=== PATIENT | male | born 1955 | race Caucasian/White ===

== ENCOUNTER 2022-01-28 16:34 | Inpatient (IN) | payer OTHER ==
[~2022-01-28] VITALS: Ht 180.3 cm; Wt 72.6 kg
[~2022-01-28 16:34] MED LIST: AZIT250 PO; AZIT500 PO; BACPOLTO30 TP; CEPH500 PO; CLIN300 PO; DOCU100 PO; HYDACE5 PO; HYDR1TAB94 PO; OMEP20ER PO; OXYACE5T PO; PRED20 PO; PROM25 PO; RXCLIN PO; RXHYDACE PO; SILSUL1TC TOP; SULTRIDS PO
[2022-01-28 17:14] LABS: BASOPHILS ABSOLUTE AUTO 0.02 K/mm3 (0.00-0.23); BASOPHILS PERCENT AUTO 0 % (0-2); EOSINOPHILS ABSOLUTE AUTO 0.02 K/mm3 (0.00-0.68); EOSINOPHILS PERCENT AUTO 0 % (0-6); Hematocrit 34.4 % (37.0-53.0); Hemoglobin 11.6 g/dL (13.5-17.5); IMMATURE GRAN ABSOLUTE AUTO 0.04 K/mm3 (0.00-0.10); IMMATURE GRAN PERCENT AUTO 0 % (0-1); LYMPHOCYTES ABSOLUTE AUTO 1.36 K/mm3 (0.84-5.20); LYMPHOCYTES PERCENT AUTO 11 % (21-46); MONOCYTES ABSOLUTE AUTO 0.71 K/mm3 (0.16-1.47); MONOCYTES PERCENT AUTO 6 % (4-13); Mean Corpuscular HGB 32.1 pg (26.0-34.0); Mean Corpuscular HGB Conc 33.7 g/dL (31.5-36.5); Mean Corpuscular Volume 95 fL (80-100); Mean Platelet Volume 10.3 fL (9.1-12.4); NEUTROPHILS ABSOLUTE AUTO 10.38 K/mm3 (1.96-9.15); NEUTROPHILS PERCENT AUTO 83 % (41-73); Platelet Count 409 K/mm3 (150-400); RDW Coefficient Variation 12.8 % (11.7-14.2); RDW Standard Deviation 45.1 fL (35.1-46.3); Red Blood Cell Count 3.61 M/mm3 (4.30-5.90); White Blood Cell Count 12.53 K/mm3 (4.00-11.30)
[2022-01-28 17:29] LABS: Albumin, Blood 2.6 g/dL (3.4-5.0); Albumin/Globulin Ratio 0.7 (0.8-1.8); Bilirubin, Total 0.2 mg/dL (0.1-1.0); Bun/Creatinine Ratio 35.3 (12.0-20.0); Creatinine, Blood 0.99 mg/dL (0.60-1.20); Globulin, Blood 3.9 g/dL (2.2-4.0); Potassium, Blood 3.7 mmol/L (3.5-5.5); Total Protein, Blood 6.5 g/dL (6.4-8.2)
[2022-01-29 05:01] LABS: BASOPHILS ABSOLUTE AUTO 0.03 K/mm3 (0.00-0.23); BASOPHILS PERCENT AUTO 0 % (0-2); EOSINOPHILS ABSOLUTE AUTO 0.15 K/mm3 (0.00-0.68); EOSINOPHILS PERCENT AUTO 1 % (0-6); Hematocrit 33.5 % (37.0-53.0); Hemoglobin 11.1 g/dL (13.5-17.5); IMMATURE GRAN ABSOLUTE AUTO 0.03 K/mm3 (0.00-0.10); IMMATURE GRAN PERCENT AUTO 0 % (0-1); LYMPHOCYTES ABSOLUTE AUTO 1.44 K/mm3 (0.84-5.20); LYMPHOCYTES PERCENT AUTO 14 % (21-46); MONOCYTES PERCENT AUTO 6 % (4-13); Mean Corpuscular HGB 32.1 pg (26.0-34.0); Mean Corpuscular HGB Conc 33.1 g/dL (31.5-36.5); Mean Corpuscular Volume 97 fL (80-100); Mean Platelet Volume 10.2 fL (9.1-12.4); NEUTROPHILS ABSOLUTE AUTO 8.45 K/mm3 (1.96-9.15); NEUTROPHILS PERCENT AUTO 79 % (41-73); Platelet Count 372 K/mm3 (150-400); RDW Coefficient Variation 13.1 % (11.7-14.2); RDW Standard Deviation 46.4 fL (35.1-46.3); Red Blood Cell Count 3.46 M/mm3 (4.30-5.90)
[2022-01-29 05:18] LABS: Albumin, Blood 2.3 g/dL (3.4-5.0); Albumin/Globulin Ratio 0.7 (0.8-1.8); Bilirubin, Total 0.2 mg/dL (0.1-1.0); Bun/Creatinine Ratio 27.2 (12.0-20.0); Calcium, Blood 8.2 mg/dL (8.5-10.1); Creatinine, Blood 0.85 mg/dL (0.60-1.20); Globulin, Blood 3.4 g/dL (2.2-4.0); Potassium, Blood 3.7 mmol/L (3.5-5.5); Total Protein, Blood 5.7 g/dL (6.4-8.2)
--- NOTE | 2022-01-29 06:20 | NUR ---
PT ADMIT FROM ER THIS SHIFT, A/O, VARIOUS SCABS TO EXTREMITIES AND LEFT ANKLE NECROTIC ABCESS. PT IS IND IN ROOM, COVID POSITIVE ON 01/22/22. WOUND PICS IN HARD CHART.
--- NOTE | 2022-01-29 17:38 | NUR ---
SHIFT SUMMARY PT NAPPING ON AND OFF THROUGH DAY. SPOKE WITH DR. MAJOR DUE TO NOT HEARING FROM DR. SULLIVAN OFFICE ABOUT NPO STATUS AND IF PROCEDURE WOULD BE COMPLETED TODAY. RECEIVED LUNCH AND TOLERATED WELL. WOUND TO L MEDIAL ANKLE OPEN TO AIR DUE TO DRINESS OF SITE. DENIES PAIN OR DISCOMFORT. TOOK A SHOWER THIS AFTERNOON. DR. SULLIVAN IN TO SEE PT AND PLANS FOR PROCEDURE TOMORROW.
--- NOTE | 2022-01-30 04:17 | NUR ---
SHIFT SUMMARY 66 YR M ADMITTED ON 01/28/22 FOR NECROTIC ULCER OF L ANKLE. FULL CODE. COVID POSITIVE. PT HAS BEEN NPO SINCE MIDNIGHT FOR A SCHEDULED I&D OF LEFT ANKLE WOUND TODAY. HE C/O PAIN IN HIS ANKLE AND WAS MEDICATED PER EMAR. HE HAD A FRIEND VISIT FOR A COUPLE OF HOURS TODAY AND HIS NEPHEW STOPPED BY WELL BUT DID NOT ENTER THE ROOM DUE TO PT BEING POS FOR COVID. PT IS COOPERATIVE W/ CARE AND USES CALL LIGHT APPROPRIATELY.
[2022-01-30 05:40] LABS: Vancomycin, Trough 9.7 ug/mL (5.0-10.0)
[2022-01-30 09:34] LABS: SARS-Cov-2 (COVID-19) PCR, MMC NEGATIVE (NEGATIVE)
--- NOTE | 2022-01-30 15:19 | NUR ---
PT RECENTLY TO [facility] BY [facility]. PT A/O. History, Chart, Medications and Allergies reviewed before start of procedure.Lungs clear T/O to Auscultation. Patient confirms NPO status and agrees with scheduled surgery. Pre-Op teaching done. Pt verbalizes understanding.
--- NOTE | 2022-01-30 18:12 | NUR ---
SHIFT SUMMARY DAY SURGERY HERE TO PICK PT UP AT APPROX 1430 TODAY FOR PROCEDURE. RETURNED APPROX 1750 AND WAS ABLE TO HOP TO BED. STATED HE DIDN'T WANT TO PUT PRESSURE ON FOOT DUE TO CONCERN ABOUT INCREASED DISCOMFORT. WRAP IN PLACE TO LLE. BEYOND EDGE OF DRESSING REDNESS TO ANKLE AREA. STATED PAIN 7/10 UPON RETURN FROM PACU AND MEDICATED. HAPPY TO BE ABLE TO EAT AND DRINK NOW. VS STARTED PER POST OPERATIVE PROTOCOL.
--- NOTE | 2022-01-31 03:02 | NUR ---
SHIFT SUMMARY 66 YR M ADMITTED ON 01/28/22 FOR LEFT ANKLE ULCER. FULL CODE. PT C/O PAIN IN LEFT ANKLE AFTER I&D TODAY. HE STATED THAT THE WRAP WAS TOO TIGHT ON IT AND IT WAS CAUSING HIM GREAT PAIN. WRAP WAS REMOVED AND FRESH GAUZE WAS PLACED THE WRAPPED AGAIN W/ BERNARDO BANDAGE. PT STATED IT WASN'T TIGHT AND FELT MUCH BETTER. HE ALSO C/O NAUSEA AND WAS GIVEN ZOFRAN PER EMAR. THIS SEEMED TO HELP. PT WAS ABLE TO SLEEP FOR SEVERAL HOURS THIS SHIFT BUT WAS IN PAIN AND ASKING FOR RELIEF APPROX Q4H. FENTYNL SEEMED TO HELP ALOT W/ THE PAIN.
--- NOTE | 2022-01-31 10:33 | NUR ---
01/31/22 1033 Jaqueline Payne VERIFICATIONS: EDIT CHART.
--- NOTE | 2022-01-31 12:52 | NUR ---
PATIENT WAS NAUSEATED AFTER WOUND CARE WAS PERFORMED. HE BEGAN TO VOMIT. HE DID SAY THAT HE WOULD TAKE ZOFRAN. THIS WAS OBTAINED OUT OF PIXIS, BUT PATIENT CHANGED HIS MIND. ZOFRAN WAS RETURNED. HE REQUESTED PAIN MEDICATION INSTEAD. HE WAS GIVEN 50 MCG OF SUBLIMAZE AT 1040 AND IT WAS EFFECTIE BRINGING PAIN 7/10 DOWN TO 4/10 AND HE WAS ABLE TO SIT BACK UP IN HIS BED- NO FURTHER GRIMMACING. THE WOUND WHEN CHANGED WAS PACKED WITH GAUZE, EXUDRY PLACED, WRAPED IN CURLEX AND THEN AN BERNARDO. DRAINAGE IS SANGUINEUS/SEROSANGUINEUS WITHOUT ODOR. SOME YONATHAN BLOOD PRESENT NEAR THE EDGE OF THE INCISION.
--- NOTE | 2022-01-31 17:35 | NUR ---
PATIENT HAS HAD IV SUBLIMAZE X 2 THIS SHIFT (6 HOURS APART) 25MCG WAS GIVEN THE LAST TIME AND IT HAS BEEN EFFECTIVE BRINING 03/02 DOWN TO 12/01. PROVIDER WAS CALLED TO ASK FOR PO PAIN MANAGEMENT AND HE DID WRITE ORDERS THIS EVENING. PAIN IS IN THE LEFT ANKLE. PATIENT IS COOPERATIVE WITH CARE AND DOES EAT MEALS.
--- NOTE | 2022-02-01 04:36 | NUR ---
A & OX4. V/S WNL. REGULAR DIET. IV TO R) AC. INDEPEDANT IN ROOM. DRESSING TO L) ANKLE C/D/I. PRN FENTANYL GIVEN FOR L) ANKLE/FOOT PAIN TWICE PER EMAR. FC. VOIDED W/O DIFFICULTY. NO BM THIS SHIFT. WILL CONTINUE TO MONITOR.
--- NOTE | 2022-02-01 11:15 | NUR ---
PATIENT PULLED OUT HIS IV AND MENTIONED THAT IT WAS TO HELP US OUT SO HE COULD GO HOME. PROVIDER ON FLOOR AND NOTIFIED. STATED HE WOULD ORDER PO ABX SO WE WOULDN'T NEED TO RESTART ANOTHER IV. DURING ASSESSEMNT, ABD WAS FOUND TO BE FIRM AND PAINFUL. PROVIDER UPDATED AND ASSESSED HIMSELF, ALSO ORDERING AN ULTRASOUND OF THE ABD. WOUND HEALING- NO FOUL ODER, TISSUE BED APPEARS TO BE SAME YESTERDAY, WITH LESS DRAINAGE.
--- NOTE | 2022-02-01 17:23 | NUR ---
PATIENT HAD US TODAY. RESULTS ARE UNREMARKABLE. HE HAS HAD ONE DOSE OF PO PAIN MEDICATION, EARLY IN THE SHIFT AND HAS BEEN COMFORTABLE SINCE. PATIENT PULLED OUT HIS IV THIS AM. DR. OROZCO IS CONSULTING WITH PODIATRY TO SEE IF ORAL ABX WILL BE EFFECTIVE. WAITING TO HEAR THE RESULT OF THAT BEFORE A NEW IV IS PLACED.
--- NOTE | 2022-02-02 04:32 | NUR ---
A&OX4. V/S WNL. NO IV ACCESS. INDEPEDANT IN ROOM. REGULAR DIET. SCD TO R) LEG ON. VOIDS W/O DIFFICULTY. NO BM THIS SHIFT. DRESSING TO L) ANKLE REINFORCED WITH MEDIPORE TAPE & KURLEX. PRN PO JONAH GIVEN FOR L) ANKLE PAIN PER EMAR. WILL CONTINUE TO MONITOR.
--- NOTE | 2022-02-02 17:13 | NUR ---
PATIENT IS ALERT AND ORIENTED AND COOPERATIVE WITH CARE. PAIN MANAGED PER EMAR. WOUND CARE COMPLETED. PATIENT IS INDEPENDENT IN HIS ROOM. CALLS APPOPRIATELY. NO NEW CONCERNS TODAY. WILL CONTINUE TO MONITOR
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
--- NOTE | 2022-02-03 04:44 | NUR ---
A&0X4. V/S WNL. REGULAR DIET. PT HAD A SHOWER. DRESSING TO L)FOOT/ANKLE C/D/I. NO IV ACCESS. SUPERVISION ON AMBULATION. PRN PO JONAH GIVEN FOR L)FOOT PAIN/HEAD. VOIDS W/O DIFFICULTY. NO BM THIS SHIFT. WILL CONTINUE TO MONITOR.
--- NOTE | 2022-02-04 04:52 | NUR ---
CLINICAL PARTNER SUMMARY AWAKE AT INTERVALS, VOICED HUNGER AND RECEIVED SNACKS, VOICED NAUSEA AND AFER IV PLACED, IV ZOFRAN X 1. VOICED PAIN OF LEFT ANKLE AND HAS RECEIVED ANALGESICS ORDERED. SEE MAR FOR DEAILS. CALL LIGHT IN REACH. DRESSING CDI. NO REPORTED BM THIS SHIT, BOWEL MEDS GIVEN.
[2022-02-04] MEDS ORDERED: DOCUZEN 8.6-501 EACH PO (11:56)
[2022-02-04] MEDS ORDERED: LEVFLO500 PO (11:57)
[2022-02-04] MEDS ORDERED: OMEP20ER PO (11:59)
[2022-02-04] MEDS ORDERED: MIRALAX17 GM PO (12:03)
[2022-02-04] MEDS ORDERED: OXYC5 PO (12:03)
[2022-02-04] MEDS ORDERED: VISBIOME 112.51 EACH PO (12:04)
--- NOTE | 2022-02-04 16:13 | NUR ---
WOUND DRESSING CHANGE CLEANED AND CHANGED PTS LEFT ANKLE DRESSING. CLEANED WITH SKINTEGRIT WOUND EDGE SAWYER, APPLIED CALCIUM ALGINATE COVERED WITH FOAM PAD AND WRAPPED WITH KULEX AND BERNARDO WRAP. PT TOLERATED THE PROCEDURE WELL. PHOTO WAS TAKEN AND PLACED IN THE PTS CHART
--- NOTE | 2022-02-04 19:13 | NUR ---
PT DISCHARGED THE PT VERBALIZED UNDERSTANDING OF THE DC INSTRUCTIONS. THE PTS PRESCIPTIONS WERE FAXED TO NITESH DUENAS ON [facility] HE REQUESTED. THE PTS INFORMATION WAS SENT TO THE WOUND CARE CLINIC PRIOR TO DC. THE PT WOUND DRESSING WAS CHANGED PRIOT TO DC. THE PT WAS TRANSFERED VIA WHEELCHAIR ACCOMPANIED BY A FRIEND AND THE NEEDLE PROCESS FELT GOODS SUPERVISOR.
== END 2022-02-04 19:13 | disposition home or self-care (01) | DRG 854 ==
LOC: ER 16:34 → MEDS 20:10 → SURS 20:10 → MEDS 20:13
PROVIDERS: Podiatrist; Student in an Organized Health Care Education/Training Program; ADMIT Internal Medicine
PROC: 3E03329 Introduction of Other Anti-infective into Peripheral Vein, Percutaneous Approach (ICD-10-PCS; principal; 2022-01-28)
PROC: 0KBW0ZZ Excision of Left Foot Muscle, Open Approach (ICD-10-PCS; 2022-01-30)
PROC: 0J9R0ZZ Drainage of Left Foot Subcutaneous Tissue and Fascia, Open Approach (ICD-10-PCS; 2022-01-30)
DX: A40.0 Sepsis due to streptococcus, group A (principal); L03.116 Cellulitis of left lower limb; L97.322 Non-pressure chronic ulcer of left ankle with fat layer exposed; E87.2 Acidosis; L97.323 Non-pressure chronic ulcer of left ankle with necrosis of muscle; A40.1 Sepsis due to streptococcus, group B; A41.02 Sepsis due to Methicillin resistant Staphylococcus aureus; A41.81 Sepsis due to Enterococcus; R65.20 Severe sepsis without septic shock; K21.9 Gastro-esophageal reflux disease without esophagitis; F15.10 Other stimulant abuse, uncomplicated; F41.9 Anxiety disorder, unspecified; F43.10 Post-traumatic stress disorder, unspecified; Z20.822 Contact with and (suspected) exposure to COVID-19; D72.829 Elevated white blood cell count, unspecified; Z71.51 Drug abuse counseling and surveillance of drug abuser; Z98.890 Other specified postprocedural states; Z79.2 Long term (current) use of antibiotics; Z79.891 Long term (current) use of opiate analgesic; Z79.899 Other long term (current) drug therapy; Z88.0 Allergy status to penicillin; Z88.5 Allergy status to narcotic agent; Z88.8 Allergy status to other drugs, medicaments and biological substances
CPT/HCPCS: 36415; 73600; 76705; 80053; 80202; 83605; 85025; 85651; 87040; 87071; 87075; 87076; 87077; 87147; 87184; 87185; 87186; 87205; 93922; 96365; 96366; 96375; 99285-25; A9270; J0692; J0696; J2405; J2704; J2765; J3010; J3370; J7030; J7040; J7050; J7060; J7120; U0004

== ENCOUNTER 2022-02-12 01:22 | Day surgery (SDC) | payer OTHER ==
[~2022-02-12 01:22] MED LIST changes: +DOCUZEN 8.6-501 EACH PO; +LEVFLO500 PO; +MIRALAX17 GM PO; +OXYC5 PO; +VISBIOME 112.51 EACH PO
== END 2022-02-12 22:43 | disposition home or self-care (01) ==
LOC: WOUND 01:22
DX: L03.116 Cellulitis of left lower limb (principal); L97.325 Non-pressure chronic ulcer of left ankle with muscle involvement without evidence of necrosis; L97.822 Non-pressure chronic ulcer of other part of left lower leg with fat layer exposed; S91.002D Unspecified open wound, left ankle, subsequent encounter; X58.XXXD Exposure to other specified factors, subsequent encounter; I87.2 Venous insufficiency (chronic) (peripheral); I73.9 Peripheral vascular disease, unspecified; M25.572 Pain in left ankle and joints of left foot; K21.9 Gastro-esophageal reflux disease without esophagitis; Z88.0 Allergy status to penicillin; Z88.5 Allergy status to narcotic agent; Z88.6 Allergy status to analgesic agent; F17.210 Nicotine dependence, cigarettes, uncomplicated
CPT/HCPCS: A9270; G0463

== ENCOUNTER 2022-02-26 08:00 | Day surgery (SDC) | payer OTHER | END 2022-02-26 23:59 | disposition home or self-care (01) | LOC: WOUND 08:00 | DX: L03.116 Cellulitis of left lower limb (principal); L97.325 Non-pressure chronic ulcer of left ankle with muscle involvement without evidence of necrosis; L97.822 Non-pressure chronic ulcer of other part of left lower leg with fat layer exposed; I87.2 Venous insufficiency (chronic) (peripheral); M25.572 Pain in left ankle and joints of left foot; K21.9 Gastro-esophageal reflux disease without esophagitis | CPT/HCPCS: 99406; A9270 ==

== ENCOUNTER 2022-03-05 03:42 | Day surgery (SDC) | payer OTHER | END 2022-03-05 23:46 | LOC: WOUND 03:42 | DX: L97.325 Non-pressure chronic ulcer of left ankle with muscle involvement without evidence of necrosis (principal); L97.822 Non-pressure chronic ulcer of other part of left lower leg with fat layer exposed; L03.116 Cellulitis of left lower limb; S91.002D Unspecified open wound, left ankle, subsequent encounter; X58.XXXD Exposure to other specified factors, subsequent encounter; I87.2 Venous insufficiency (chronic) (peripheral); I73.9 Peripheral vascular disease, unspecified; M25.572 Pain in left ankle and joints of left foot; K21.9 Gastro-esophageal reflux disease without esophagitis; Z72.0 Tobacco use | CPT/HCPCS: 99406; A9270; G0463 ==

== ENCOUNTER 2022-03-12 02:29 | Day surgery (SDC) | payer OTHER | END 2022-03-14 23:35 | disposition home or self-care (01) | LOC: WOUND 02:29 | DX: S91.002D Unspecified open wound, left ankle, subsequent encounter (principal); X58.XXXD Exposure to other specified factors, subsequent encounter; L97.325 Non-pressure chronic ulcer of left ankle with muscle involvement without evidence of necrosis; L97.822 Non-pressure chronic ulcer of other part of left lower leg with fat layer exposed; L03.116 Cellulitis of left lower limb; I87.2 Venous insufficiency (chronic) (peripheral); L73.9 Follicular disorder, unspecified; M25.572 Pain in left ankle and joints of left foot; Z72.0 Tobacco use; K21.9 Gastro-esophageal reflux disease without esophagitis | CPT/HCPCS: 99406; A9270 ==

== ENCOUNTER 2022-03-19 00:55 | Day surgery (SDC) | payer OTHER | END 2022-03-19 23:32 | disposition home or self-care (01) | LOC: WOUND 00:55 | DX: L03.116 Cellulitis of left lower limb (principal); I87.2 Venous insufficiency (chronic) (peripheral); I73.9 Peripheral vascular disease, unspecified; K21.9 Gastro-esophageal reflux disease without esophagitis; B95.62 Methicillin resistant Staphylococcus aureus infection as the cause of diseases classified elsewhere; Z72.0 Tobacco use | CPT/HCPCS: 99406; A9270; G0463 ==

== ENCOUNTER 2022-06-01 11:52 | Emergency (ER) | payer OTHER ==
[~2022-06-01] VITALS: Ht 182.9 cm; Wt 72.6 kg
[2022-06-01 13:08] LABS: Source, Urine Clean Catch
[2022-06-01 13:10] LABS: BASOPHILS ABSOLUTE AUTO 0.04 K/mm3 (0.00-0.23); BASOPHILS PERCENT AUTO 0 % (0-2); EOSINOPHILS ABSOLUTE AUTO 0.07 K/mm3 (0.00-0.68); EOSINOPHILS PERCENT AUTO 1 % (0-6); Hematocrit 39.9 % (37.0-53.0); Hemoglobin 13.4 g/dL (13.5-17.5); IMMATURE GRAN ABSOLUTE AUTO 0.04 K/mm3 (0.00-0.10); IMMATURE GRAN PERCENT AUTO 0 % (0-1); LYMPHOCYTES ABSOLUTE AUTO 1.57 K/mm3 (0.84-5.20); LYMPHOCYTES PERCENT AUTO 13 % (21-46); MONOCYTES ABSOLUTE AUTO 0.46 K/mm3 (0.16-1.47); MONOCYTES PERCENT AUTO 4 % (4-13); Mean Corpuscular HGB 30.7 pg (26.0-34.0); Mean Corpuscular HGB Conc 33.6 g/dL (31.5-36.5); Mean Corpuscular Volume 92 fL (80-100); Mean Platelet Volume 10.7 fL (9.1-12.4); NEUTROPHILS ABSOLUTE AUTO 9.66 K/mm3 (1.96-9.15); NEUTROPHILS PERCENT AUTO 82 % (41-73); Platelet Count 360 K/mm3 (150-400); RDW Coefficient Variation 13.7 % (11.7-14.2); RDW Standard Deviation 46.7 fL (35.1-46.3); Red Blood Cell Count 4.36 M/mm3 (4.30-5.90); White Blood Cell Count 11.84 K/mm3 (4.00-11.30)
[2022-06-01 13:11] LABS: Appearance, Urine Clear (Clear); Bilirubin, Urine Neg (Neg); Blood, Urine Neg (Neg); Color, Urine Yellow (P-Yellow); Glucose Qualitative, Urine Neg (Neg); Ketones, Urine Neg (Neg); Leukocyte Esterase, Urine Neg (Neg); Nitrite, Urine Neg (Neg); Protein, Urine Neg (Neg); Specific Gravity, Urine 1.015 (1.003-1.022); Urobilinogen, Urine NORM (Normal)
[2022-06-01 13:36] LABS: Albumin, Blood 3.2 g/dL (3.4-5.0); Bilirubin, Total 0.4 mg/dL (0.1-1.0); Bun/Creatinine Ratio 29.9 (12.0-20.0); Calcium, Blood 9.5 mg/dL (8.5-10.1); Creatinine, Blood 0.9 mg/dL (0.60-1.20); Globulin, Blood 3.3 g/dL (2.2-4.0); Total Protein, Blood 6.5 g/dL (6.4-8.2)
[2022-06-01] MEDS ORDERED: LOPE2C PO (13:51)
[2022-06-01] MEDS ORDERED: ONDA4ODT MM (13:51)
== END 2022-06-01 14:05 | disposition home or self-care (01) ==
LOC: ER 11:52
PROVIDERS: Emergency Medicine
DX: K52.9 Noninfective gastroenteritis and colitis, unspecified (principal); K21.9 Gastro-esophageal reflux disease without esophagitis; Z88.0 Allergy status to penicillin; Z88.6 Allergy status to analgesic agent; Z88.5 Allergy status to narcotic agent; Z87.891 Personal history of nicotine dependence
CPT/HCPCS: 80053; 81003; 83690; 85025; 96374; 99284-25; J2405; J7030

== ENCOUNTER 2022-06-20 00:47 | Inpatient (IN) | payer OTHER ==
[~2022-06-20] VITALS: Ht 180.3 cm; Wt 79.3 kg
[~2022-06-20 00:47] MED LIST changes: +LOPE2C PO; +ONDA4ODT MM
[2022-06-20 01:46] LABS: BASOPHILS ABSOLUTE AUTO 0.04 K/mm3 (0.00-0.23); BASOPHILS PERCENT AUTO 0 % (0-2); EOSINOPHILS ABSOLUTE AUTO 0.09 K/mm3 (0.00-0.68); EOSINOPHILS PERCENT AUTO 1 % (0-6); Hematocrit 29.8 % (37.0-53.0); Hemoglobin 10.1 g/dL (13.5-17.5); IMMATURE GRAN ABSOLUTE AUTO 0.09 K/mm3 (0.00-0.10); IMMATURE GRAN PERCENT AUTO 1 % (0-1); LYMPHOCYTES ABSOLUTE AUTO 1.31 K/mm3 (0.84-5.20); LYMPHOCYTES PERCENT AUTO 8 % (21-46); MONOCYTES ABSOLUTE AUTO 0.76 K/mm3 (0.16-1.47); MONOCYTES PERCENT AUTO 5 % (4-13); Mean Corpuscular HGB 31.5 pg (26.0-34.0); Mean Corpuscular HGB Conc 33.9 g/dL (31.5-36.5); Mean Corpuscular Volume 93 fL (80-100); Mean Platelet Volume 10.2 fL (9.1-12.4); NEUTROPHILS ABSOLUTE AUTO 13.88 K/mm3 (1.96-9.15); NEUTROPHILS PERCENT AUTO 86 % (41-73); Platelet Count 447 K/mm3 (150-400); RDW Coefficient Variation 15.2 % (11.7-14.2); RDW Standard Deviation 52.3 fL (35.1-46.3); Red Blood Cell Count 3.21 M/mm3 (4.30-5.90); White Blood Cell Count 16.17 K/mm3 (4.00-11.30)
[2022-06-20 02:08] LABS: Albumin, Blood 1.9 g/dL (3.4-5.0); Albumin/Globulin Ratio 0.5 (0.8-1.8); Bilirubin, Total 0.1 mg/dL (0.1-1.0); Bun/Creatinine Ratio 31.8 (12.0-20.0); Calcium, Blood 8.3 mg/dL (8.5-10.1); Creatinine, Blood 0.76 mg/dL (0.60-1.20); Globulin, Blood 3.5 g/dL (2.2-4.0); Magnesium, Blood 1.8 mg/dL (1.6-2.4); Potassium, Blood 3.7 mmol/L (3.5-5.5); Thyroid Stimulating Hormone 1.55 uIU/mL (0.360-4.800); Total Protein, Blood 5.4 g/dL (6.4-8.2)
[2022-06-20 03:15] LABS: Influenza A, PCR NEGATIVE (NEGATIVE); Influenza B, PCR NEGATIVE (NEGATIVE); Resp Syncytial Virus, PCR NEGATIVE (NEGATIVE); SARS-Cov-2 (COVID-19) PCR, MMC NEGATIVE (NEGATIVE)
[2022-06-20 04:11] LABS: Source, Urine Clean Catch
[2022-06-20 04:15] LABS: Bilirubin, Urine Neg (Neg); Blood, Urine 1+ (Neg); Glucose Qualitative, Urine Neg (Neg); Ketones, Urine Neg (Neg); Leukocyte Esterase, Urine Neg (Neg); Nitrite, Urine Neg (Neg); Protein, Urine 1+ (Neg); Urobilinogen, Urine NORM (Normal)
[2022-06-20 04:20] LABS: Appearance, Urine Clear (Clear); Color, Urine Yellow (P-Yellow)
[2022-06-20 04:21] LABS: Bacteria Not Seen /hpf; Squamous Epithelial Cells Not Seen /hpf (Few); White Blood Cells, Urine Not Seen /hpf (0-5)
[2022-06-20 05:15] LABS: U Amphetamine Screen DETECTED; U Barbituate Screen Not Detected; U Benzodiazapine Screen Not Detected; U Buprenorphine Screen Not Detected; U Cannabinoids Screen DETECTED; U Cocaine Screen Not Detected; U Methadone Screen Not Detected; U Methamphetamine Screen DETECTED; U Opiates Screen Not Detected; U Oxycodone Screen Not Detected; U Phencyclidine Screen Not Detected; U Propoxyphene Screen Not Detected
--- NOTE | 2022-06-20 06:33 | NUR ---
ARRIVAL TO PCU 12 PT ARRIVED AT 0530 VIA ED GURNEY. PT ALERT AND FOLLOWING DIRECTIONS. ABLE TO TRANSFER SELF TO BED. PT INITIALLY AFIB WITH RVR 130-140'S. SELF CONVERTED TO SR 80'S AT 0547. ON RA. SPO2 GREATER THAN 92%. PT HAS MULTIPLE SCABS ON BLE, STATES THEY 'SHOWED UP' A WEEK AGO. REDNESS/HEAT NOTED ON BLE, MORE ON RLE THEN LLE. SCATTERED PUSTULES ON BUE. LEFT ANKLE HAS OPEN ULCER. PICTURES IN CHART. VOIDS IN URINAL. EDUCATED ON CALLING BEFORE GETTING OOB. CALL LIGHT IN REACH.
--- NOTE | 2022-06-20 18:42 | NUR ---
SHIFT SUMMARY PT IS ALERT AND ORIENTED X 4 BUT HAS BEEN SOMNOLENT DURING SHIFT, HE DID GET UP IN CHAIR FOR DINNER AND WAS STEADY ON HIS FEET. HR WAS SR UPON BEGINNING OF SHIFT AND THEN PT HR CONVERTED TO AFIB, SEE EMAR. AFIB WAS RESOLVED AND PT WAS BACK IN SR BUT WOULD GEO DOWN TO 43-50'S AND THEN RETURN TO HR IN 70'S. DR. FALCON MADE AWARE, SEE EMAR FOR HR MANAGEMENT. CONTINUED TO DENY FEELINGS OF PAIN, SOB, OR DIZZINESS. HE DENIED CHEST PAIN/PRESSURE. ULCER LOCATED ON LEFT INNER ANKLE IS COVERED W/ CALCIUM ALGINATE/GAUZRISHABH Smith RN WOUND NURSE CONSULTED PT TODAY, SEE CHART FOR PHOTOS. BP WAS SOFT DURING EPISODE OF AFIB, SEE EMAR. BP NOW STABLE. SPO2 >95% VIA ROOM AIR. IV'S ARE SALINE LOCKED. HE HAS VOIDED USING BEDSIDE URINAL. NO OTHER ACUTE CHANGES NOTED. PT NOW WATCHING TV. CALL LIGHT IN REACH.
--- NOTE | 2022-06-20 19:00 | NUR ---
assumed care of pt pt nina stable a&o x4 vang no c/o pain will take over care
--- NOTE | 2022-06-21 03:48 | NUR ---
UPDATE CALL TO PHYSICIAN TO UPDATE REGARDING POSITIVE BLOOD CULTURES, NO NEW ORDERS AT THIS TIME.
[2022-06-21 04:08] LABS: Vancomycin, Trough 8.4 ug/mL (5.0-10.0)
--- NOTE | 2022-06-21 04:57 | NUR ---
SHIFT SUMMARY PT A&Ox4, CALLS AND COMMUNICATES NEEDS APPROPRIATELY. VSS, BP STABLE, SpO2> 92% RA, DENIES SOB. SINUS WITH OCCATIONAL PVC's RESULTING IN SHORT RUNS OF AFIB, HR GETTING HIGH 150 DURING RUNS OF AFIB, PT ASYMPTOMATIC AND DENYING CP/PRESSURE THROUGHOUT THE SHIFT AND DURING RUNS OF AFIB. PT USES URINAL IND. AMBULATED WITH SBA TO BATHROOM, SHOWERED IND. SEE PREVIOUS NOTE. NO OTHER EVENTS THIS SHIFT, WILL REPORT TO DAY SHIFT RN.
[2022-06-21 07:11] LABS: HIV AB/P24 AG SCREEN Non Reactive (Non Reactive)
--- NOTE | 2022-06-21 09:33 | NUR ---
ASSUMPTION OF CARE: PATIENT RESTING AT TIME OF ASSUMPTION, HOWEVER, AFTER NEEDING TO AMBULATE TO THE RESTROOM, PATIENT HAD CONVERTED INTO AFIB WITH RVR WITH HR 120-150'S OCCASSIONALLY HITTING 160. CALL TO PROVIDER AND PROVIDER 1 X DOSE OF METORPROLOL 5MG AND NEW ORDER FOR Q6 PRN 2.5-5MG ORDER WELL. PATIENT HAD FELT DIZZY AND LIGHTHEADED WHEN HE WAS IN AFIB, BUT AFTER CONVERTED BACK TO SINUS RHYTHM PATIENT ASYMPTOMATIC OF THESE SYMPTOMS. DENIES CHEST PAIN/PRESSURE, OR SOB AT REST. PATIENT HAD BEEN ALERT AND ORIENTED, LUNG SOUNDS CLEAR. RR <20 SPO2 >96% ON RA. PATIENT EDUCATED ON BETA BLOCKERS, CURRENT ILLNESS AND MEDICATION REGIMENT. PATIENT AGREEABLE WITH PLAN OF ACTION WILL CONTINUE TO MONITOR VS&S PRN AND PER SCHEDULED UNIT PROTOCOL. 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
[2022-06-21 10:14] LABS: BASOPHILS ABSOLUTE AUTO 0.04 K/mm3 (0.00-0.23); BASOPHILS PERCENT AUTO 0 % (0-2); EOSINOPHILS ABSOLUTE AUTO 0.09 K/mm3 (0.00-0.68); EOSINOPHILS PERCENT AUTO 1 % (0-6); Hematocrit 30.5 % (37.0-53.0); Hemoglobin 9.9 g/dL (13.5-17.5); IMMATURE GRAN ABSOLUTE AUTO 0.09 K/mm3 (0.00-0.10); IMMATURE GRAN PERCENT AUTO 1 % (0-1); LYMPHOCYTES ABSOLUTE AUTO 1.19 K/mm3 (0.84-5.20); LYMPHOCYTES PERCENT AUTO 8 % (21-46); MONOCYTES ABSOLUTE AUTO 0.58 K/mm3 (0.16-1.47); MONOCYTES PERCENT AUTO 4 % (4-13); Mean Corpuscular HGB 30.5 pg (26.0-34.0); Mean Corpuscular HGB Conc 32.5 g/dL (31.5-36.5); Mean Corpuscular Volume 94 fL (80-100); Mean Platelet Volume 9.7 fL (9.1-12.4); NEUTROPHILS ABSOLUTE AUTO 13.37 K/mm3 (1.96-9.15); NEUTROPHILS PERCENT AUTO 87 % (41-73); Platelet Count 434 K/mm3 (150-400); RDW Coefficient Variation 15.2 % (11.7-14.2); RDW Standard Deviation 52.4 fL (35.1-46.3); Red Blood Cell Count 3.25 M/mm3 (4.30-5.90); White Blood Cell Count 15.36 K/mm3 (4.00-11.30)
[2022-06-21 10:41] LABS: Bun/Creatinine Ratio 25.1 (12.0-20.0); Calcium, Blood 8.3 mg/dL (8.5-10.1); Creatinine, Blood 0.76 mg/dL (0.60-1.20); Potassium, Blood 4.1 mmol/L (3.5-5.5)
--- NOTE | 2022-06-21 15:32 | NUR ---
END OF SHIFT: PLEASE SEE ASSUMPTION OF CARE FOR FULL REPORT. ONLY CHANGES ARE ORTHO CONSULT TO DR. EVANS ORTHO DID NOT RECIEVE UNTIL TODAY, PLAN FOR NPO AT 0000 AND PROCEDURE FOR RIGHT KNEE ARTHOPLASTY AT APPROXIMATELY 1000. PATIENT HAS NOT NEEDED ANY LOPRESSOR THUS THIS FAR SINCE THIS AM. PATIENT HAS BEEN STABLE ON BP AND SR. PATIENT HAS NO CHEST PAIN/PRESSURE OR SOB AT REST. PATIENT RECIEVED SHOWER. NO CONCERNS AT THIS TIME FOR THE PATIENT WILL CONTINUE TO MONITOR UNTIL SHIFT CHANGE.
--- NOTE | 2022-06-22 01:27 | NUR ---
UPDATE PT CONVERTING INTO AFIB A FEW TIME FOR LESS THAN A MINUTE BEFORE CONVERTING BACK TO SINUS ON HIS OWN, PT ASYMPTOMATIC. AT 0111, PT CONVERTED INTO AFIB AND SUSTAINING, HR 120-150's, PT REPORTS MINOR CP AND FEELING "JUST A LITTLE LIGHTHEADED". ADMINISTERED PRN IV LOPRESSOR 5mg FOR RATE CONTROL. BP PRIOR TO ADMINISTRATION WAS 122/90 (100). BP APPROXIMATELY 15 MINUTES AFTER ADMINISTRATION IS 114/91 (98), HR UNCHANGED, PT's SYMPTOMS UNCHANGED.
--- NOTE | 2022-06-22 01:49 | NUR ---
UPDATE PT CONVERTED BACK TO SINUS IN THE 's.
[2022-06-22 03:57] LABS: BASOPHILS ABSOLUTE AUTO 0.05 K/mm3 (0.00-0.23); BASOPHILS PERCENT AUTO 0 % (0-2); EOSINOPHILS ABSOLUTE AUTO 0.16 K/mm3 (0.00-0.68); EOSINOPHILS PERCENT AUTO 1 % (0-6); Hematocrit 29.6 % (37.0-53.0); Hemoglobin 9.7 g/dL (13.5-17.5); IMMATURE GRAN ABSOLUTE AUTO 0.11 K/mm3 (0.00-0.10); IMMATURE GRAN PERCENT AUTO 1 % (0-1); LYMPHOCYTES ABSOLUTE AUTO 1.58 K/mm3 (0.84-5.20); LYMPHOCYTES PERCENT AUTO 12 % (21-46); MONOCYTES ABSOLUTE AUTO 0.58 K/mm3 (0.16-1.47); MONOCYTES PERCENT AUTO 5 % (4-13); Mean Corpuscular HGB 30.5 pg (26.0-34.0); Mean Corpuscular HGB Conc 32.8 g/dL (31.5-36.5); Mean Corpuscular Volume 93 fL (80-100); Mean Platelet Volume 9.6 fL (9.1-12.4); NEUTROPHILS ABSOLUTE AUTO 10.25 K/mm3 (1.96-9.15); NEUTROPHILS PERCENT AUTO 80 % (41-73); Platelet Count 465 K/mm3 (150-400); RDW Coefficient Variation 15.1 % (11.7-14.2); RDW Standard Deviation 52.2 fL (35.1-46.3); Red Blood Cell Count 3.18 M/mm3 (4.30-5.90); White Blood Cell Count 12.73 K/mm3 (4.00-11.30)
[2022-06-22 04:18] LABS: Anion Gap 4 mmol/L (6-16); Blood Urea Nitrogen 20 mg/dL (8-24); Bun/Creatinine Ratio 25.9 (12.0-20.0); CO2, Blood 30 mmol/L (21-32); Chloride, Blood 107 mmol/L (98-108); Creatinine, Blood 0.77 mg/dL (0.60-1.20); Glomerular Filtration Rate 100 (60-); Glucose, Blood 127 mg/dL (70-99); Magnesium, Blood 2.2 mg/dL (1.6-2.4); Potassium, Blood 4.1 mmol/L (3.5-5.5); Sodium, Blood 141 mmol/L (136-145); Vancomycin, Trough 12.8 ug/mL (5.0-10.0)
--- NOTE | 2022-06-22 05:20 | NUR ---
SHIFT SUMMARY PT A&Ox4, CALLS AND COMMUNICATES NEEDS APPROPRIATELY. PT IS IND IN ROOM. VSS, BP STABLE, SpO2> 92% ON RA. DENIES SOB, CP/PRESSURE. SINUS 80's, SEE PREVIOUS NOTES. PT NPO AT 0000. NO OTHER EVENTS THIS SHIFT, WILL REPORT TO DAY SHIFT RN.
--- NOTE | 2022-06-22 12:44 | NUR ---
06/22/22 1244 Vicki Burroughs PT RECIEVED ANTIBIOTICS SCHEDULED BY DR CUMMINS.
--- NOTE | 2022-06-22 16:20 | NUR ---
END OF SHIFT: NEURO: PLEASANT, A/O X 4. AFEBRILE, PAIN POORLY CONTROLLED AT THIS TIME. CARDIAC: DENIES CHEST PAIN/PRESSURE OR SOB. CURRENLTY 50-60'S WHILE SLEEPING TYPICALLY SINUS 70-80'S WHILE AWAKE, DID NOT CONVERT INTO AFIV FOR THIS RN AT THIS TIME OF NOTE, WILL CONTINUE TO MONITOR. BP NORMOTENSIVE. PULM: WNL SKIN/WOUNDS: PATIENT NOW HAS 7 COVERINGS AFTER HAVE I/D'S BY DR PALMER, ICE TO AFFECTED AREA'S Q 20 ON, 30 OFF. PATIENT HAS BEEN SELF ROTATING. LEGS ELEVATED. AND DRESSING TO BE CHANGED BY WOUND NURSE TOMORROW PER DR. PALMER. PATIENT STILL RECIEVING VANCO AND NEW ORDER FOR 1 BAG OF FLUIDS. PATIENT APPETITE IS WELL, NO CONCERNS AT THIS TIME. PATIENT HAS NO DIRECT CONCERNS EXCEPT FOR IMPROVED PAIN MANAGEMENT, WILL INFORM HOSPITALIST AND CONTINUE TO MONITOR PATIENT UNTIL SHIFT CHANGE.
[2022-06-23 04:03] LABS: BASOPHILS ABSOLUTE AUTO 0.03 K/mm3 (0.00-0.23); BASOPHILS PERCENT AUTO 0 % (0-2); EOSINOPHILS PERCENT AUTO 0 % (0-6); Hematocrit 31.5 % (37.0-53.0); Hemoglobin 10.6 g/dL (13.5-17.5); IMMATURE GRAN ABSOLUTE AUTO 0.15 K/mm3 (0.00-0.10); IMMATURE GRAN PERCENT AUTO 1 % (0-1); LYMPHOCYTES ABSOLUTE AUTO 1.01 K/mm3 (0.84-5.20); LYMPHOCYTES PERCENT AUTO 6 % (21-46); MONOCYTES PERCENT AUTO 2 % (4-13); Mean Corpuscular HGB 31.3 pg (26.0-34.0); Mean Corpuscular HGB Conc 33.7 g/dL (31.5-36.5); Mean Corpuscular Volume 93 fL (80-100); Mean Platelet Volume 9.6 fL (9.1-12.4); NEUTROPHILS ABSOLUTE AUTO 15.84 K/mm3 (1.96-9.15); NEUTROPHILS PERCENT AUTO 91 % (41-73); Platelet Count 508 K/mm3 (150-400); RDW Coefficient Variation 15.1 % (11.7-14.2); RDW Standard Deviation 51.8 fL (35.1-46.3); Red Blood Cell Count 3.39 M/mm3 (4.30-5.90); White Blood Cell Count 17.43 K/mm3 (4.00-11.30)
--- NOTE | 2022-06-23 04:35 | NUR ---
SHIFT SUMMARY PT A&Ox4, CALLS AND COMMUNICATES NEEDS APPROPRIATELY. PT IND IN ROOM. VSS, BP STABLE, SpO2> 92% RA. DENIES SOB. PT REMAINED IN SINUS 60-80's THROUGHOUT THIS SHIFT, NO EVENTS OF AFIB OR SINUS GEO. DENIES CP/PRESSURE. NO OTHER EVENTS THIS SHIFT, WILL REPORT TO DAY SHIFT RN.
[2022-06-23 16:49] LABS: Vancomycin, Trough 14.2 ug/mL (5.0-10.0)
--- NOTE | 2022-06-23 18:23 | NUR ---
PT REMAINS ALERT AND ORIENTED X 4, ABLE TO FOLLOW COMMANDS AND COMMUNICATE NEEDS. PT C/O PAIN TO WOUNDS, FENTANYL GIVEN PER ORDER WITH GOOD EFFECT. PT PREVIOUSLY IN AFIB WITH RVR FOR THE FIRST 6 HOURS OF THE SHIFT, METROPOLOL IV GIVEN X2. PT HAS SINCE CONVERTED TO SR WITH HR IN THE 60'S. BLOOD PRESSURE REMAINS STABLE. AFEBRILE. PT REMAINS ON RA WITH SPO2 ABOVE 90% NO RESP DISTRESS NOTED. GOOD APPETITIE NOTED. PT HAS BEEN USING THE TOILET INDEP. PT UP IN ROOM T/O SHIFT. WILL CONTINUE TO MONITOR PT UNTIL REPORT IS GIVEN TO ONCOMING SHIFT.
--- NOTE | 2022-06-24 04:45 | NUR ---
SHIFT SUMMARY A&Ox4, CALLS AND COMMUNICATES NEEDS APPROPRIATELY. VSS, BP STABLE, SpO2> 92% RA. DENIES SOB. PT WAS SINUS 70's AT START OF SHIFT, AT APPROXIMATELY 2230 PT CONVERTED TO AFIB 90-120's, ADMINISTERED IV LOPRESSOR PER EMAR, PT STILL IN AFIB. DENIES CP/PRESSURE/DIZZINESS. PT IND IN ROOM. PAIN MANAGED PER EMAR. NO OTHER EVENTS THIS SHIFT. WILL REPORT TO DAY SHIFT RN.
[2022-06-24 06:40] LABS: BASOPHILS ABSOLUTE AUTO 0.05 K/mm3 (0.00-0.23); BASOPHILS PERCENT AUTO 0 % (0-2); EOSINOPHILS ABSOLUTE AUTO 0.07 K/mm3 (0.00-0.68); EOSINOPHILS PERCENT AUTO 1 % (0-6); Hematocrit 29.4 % (37.0-53.0); Hemoglobin 9.5 g/dL (13.5-17.5); IMMATURE GRAN ABSOLUTE AUTO 0.11 K/mm3 (0.00-0.10); IMMATURE GRAN PERCENT AUTO 1 % (0-1); LYMPHOCYTES ABSOLUTE AUTO 2.24 K/mm3 (0.84-5.20); LYMPHOCYTES PERCENT AUTO 19 % (21-46); MONOCYTES ABSOLUTE AUTO 0.59 K/mm3 (0.16-1.47); MONOCYTES PERCENT AUTO 5 % (4-13); Mean Corpuscular HGB 30.6 pg (26.0-34.0); Mean Corpuscular HGB Conc 32.3 g/dL (31.5-36.5); Mean Corpuscular Volume 95 fL (80-100); Mean Platelet Volume 9.9 fL (9.1-12.4); NEUTROPHILS PERCENT AUTO 74 % (41-73); Platelet Count 473 K/mm3 (150-400); RDW Coefficient Variation 15.7 % (11.7-14.2); RDW Standard Deviation 54.1 fL (35.1-46.3); White Blood Cell Count 11.76 K/mm3 (4.00-11.30)
--- NOTE | 2022-06-24 07:30 | NUR ---
INITIAL ASSESSMENT: PATIENT IS ALERT AND ORIENTED SITTING UP IN BED. HE REPORTS 6/10 BILATERAL KNEE PAIN-HE IS MEDICATED WITH FENTANYL AND TYLENOL. HR IRREG, A-FIB IN THE 115-125, PO METOPROLOL. PER NOC RN PATIENT IS CONVERTING IN AND OUT OF A-FIB TO SR. LS CTA, BIOX 100% ON RA. BT +. PT STATES THE TYLENOL HAS BEEN MAKING HIM NAUSEATED WHEN HE TAKES IT WITHOUT FOOD. NO BM IN THE LAST COUPLE OF DAYS, COLACE GIVEN. PPP. PT HAS A GAUZE DRESSING TO RUE-CDI, HE HAS BILATERAL GROIN DRESSINGS-MEPILEX, HE ALSO HAS BILATERAL KNEE DRESSINGS WITH BERNARDO WRAP-CDI. VSS. PATIENT DENIES OTHER NEEDS AT THIS TIME. CALL LIGHT IN REACH.
--- NOTE | 2022-06-24 12:00 | NUR ---
Update: Patient has been OOB to the shower, linen changed. Dr Muro came to see the patient while the dressings were off, he stated they look good and current tx plan is good. Patient premedicated for pain before dressings changed. Knees packed with idoaform, wrapped with kerlex and then anna wrap. Dressings on left ankle, right FA, and bilat groin dressed with calcium algeinate and then mepilex to groin. ABD pads and kerlex in the rest of the wounds. VSS. Patient denies other needs at this time. Call light in reach. Patient converted to SR around 0923.
--- NOTE | 2022-06-24 17:35 | NUR ---
SUMMARY: Patient has been alert and oriented for me t/o the shift. He has C/O pain mostly in both knees, he was medicated with tyelnol, fentanyl, and oxicodone with good relief. HR was initially in A-Fib in the 115-120s, after his AM dose of metoprolol he converted to SR. He has remained in SR T/O the shift at a rate in the 70s. LS CTA, Biox 100% on RA. BT+, no BM this shift. He has been voiding in the urial independently. Dressings changed on 7 I+D sites, with a plan to place a wound vac on the bilat knee sites tomorrow. No acute changes this shift. Will report to oncoming RN.
[2022-06-25 04:39] LABS: Hemoglobin 9.2 g/dL (13.5-17.5); Mean Corpuscular HGB 30.5 pg (26.0-34.0); Mean Corpuscular HGB Conc 31.7 g/dL (31.5-36.5); Mean Corpuscular Volume 96 fL (80-100); Mean Platelet Volume 9.6 fL (9.1-12.4); Platelet Count 472 K/mm3 (150-400); RDW Coefficient Variation 15.7 % (11.7-14.2); RDW Standard Deviation 54.7 fL (35.1-46.3); Red Blood Cell Count 3.02 M/mm3 (4.30-5.90); White Blood Cell Count 10.86 K/mm3 (4.00-11.30)
[2022-06-25 05:02] LABS: Ferritin, Serum 83 ng/mL (26-388); Iron Serum 48 ug/dL (65-175); Percent Saturation 27.6 % (20.0-50.0); Total Iron Binding Capacity 174 ug/dL (250-450)
[2022-06-25 05:03] LABS: Alanine Aminotransfer (ALT/SGP 61 U/L (12-78); Albumin, Blood 1.9 g/dL (3.4-5.0); Albumin/Globulin Ratio 0.6 (0.8-1.8); Alk Phos 104 U/L (50-136); Anion Gap 5 mmol/L (6-16); Aspartate Aminotrans (AST/SGOT 31 U/L (12-37); Bilirubin, Total 0.1 mg/dL (0.1-1.0); Blood Urea Nitrogen 23 mg/dL (8-24); Bun/Creatinine Ratio 29.6 (12.0-20.0); CO2, Blood 30 mmol/L (21-32); Calcium, Blood 8.2 mg/dL (8.5-10.1); Chloride, Blood 105 mmol/L (98-108); Creatinine, Blood 0.78 mg/dL (0.60-1.20); Globulin, Blood 3.2 g/dL (2.2-4.0); Glomerular Filtration Rate 100 (60-); Glucose, Blood 115 mg/dL (70-99); Potassium, Blood 4.1 mmol/L (3.5-5.5); Sodium, Blood 140 mmol/L (136-145); Total Protein, Blood 5.1 g/dL (6.4-8.2)
--- NOTE | 2022-06-25 05:43 | NUR ---
SHIFT SUMMARY PT ALERT AND ORIENTEED X 4. HR STABLE. BP STABLE. NO CP OR PRESSURE. OXYGEN SATURATION MAINTAINED ABOVE 92% ON RA. PT REPORTS PAIN T/O SHIFT. MEDICATED PER EMAR. WOUND DRESSINGS C/D/I. NO ACUTE CHANGES T/O SHIFT. IND IN ROOM. WILL CONT TO MONITOR UNTIL REPORT GIVEN TO DAYSHIFT RN.
--- NOTE | 2022-06-25 07:44 | NUR ---
NURSING PCU DAYSHIFT: Assumed care of pt at approx 0700. A/O, very pleasant, cooperative w/care. Ambulates independently and w/o difficulty. Skin w/scattered bruising and scars, several wounds w/dressing in place, photos in chart. C/O 6.5-7/10 wound pain, mostly r/t L ankle. Tele in place, NSR w/HR 60's, SBP 133 prior to a.m. meds, no c/o CP/pressure, trace RLE edema. L/S fairly cta t/o w/fine crackles to RLL, no noted cough/dyspnea, O2 sat upper 90's on RA. Abd SNT, BT+, voiding w/o difficulty per pt. PIV x1, NS infusing as per d/o. No s/s of acute distress this a.m. Plan for wound nurse to place wound vac to LE this a.m. Pain meds administered for pain management. Discussed importance of deep breathing exercises while in bed, pt verbalized and demonstrated understanding. Pt denies any current needs or questions regarding plan of care. Call light in reach, awaiting rounding from PMD, cont to monitor for any changes.
--- NOTE | 2022-06-25 17:07 | NUR ---
NURSING PCU DAYSHIFT SUMMARY: Pt has continued to do well t/o the shift. Continues to have wound related pain though is controlled well w/medications as ordered. At 1206, pt had a brief run of afib w/HR of 150's though converted back to NSR within approx 30 seconds. OOB to shower independently, tolerated well. Wound nurse currently at bedside placing wound vac to b/l knees. All wound sites appear healthy w/pink tissue and are healing well. Seen by PMD, new d/o received. Pt changed to medical status w/tele, awaiting bed assignment. Pt denies any current needs or questions regarding plan of care. Call light in reach and pt is able to use w/o difficulty. No s/s of acute distress, cont to monitor until rpt is given to NOC RN.
--- NOTE | 2022-06-25 22:28 | NUR ---
UPDATE PT HAD A RUN OF AFIB WITH RVR THAT LASTED ~20MIN IN LENGTH. PT REPORTED SOME MINOR CHEST TIGHTNESS. MONITORED PT WHILE WAITING FOR PO METOPROLOL TO TAKE EFFECT. PT THEN CONVERTED TO SR WITH A RATE IN THE 70'S.
[2022-06-26 04:14] LABS: Hematocrit 28.8 % (37.0-53.0); Hemoglobin 9.1 g/dL (13.5-17.5); Mean Corpuscular HGB 30.2 pg (26.0-34.0); Mean Corpuscular HGB Conc 31.6 g/dL (31.5-36.5); Mean Corpuscular Volume 96 fL (80-100); Mean Platelet Volume 9.5 fL (9.1-12.4); Platelet Count 473 K/mm3 (150-400); RDW Coefficient Variation 15.6 % (11.7-14.2); RDW Standard Deviation 53.8 fL (35.1-46.3); Red Blood Cell Count 3.01 M/mm3 (4.30-5.90); White Blood Cell Count 11.14 K/mm3 (4.00-11.30)
[2022-06-26 04:36] LABS: Albumin, Blood 1.9 g/dL (3.4-5.0); Albumin/Globulin Ratio 0.6 (0.8-1.8); Bilirubin, Total 0.2 mg/dL (0.1-1.0); Bun/Creatinine Ratio 31.6 (12.0-20.0); Calcium, Blood 8.1 mg/dL (8.5-10.1); Creatinine, Blood 0.92 mg/dL (0.60-1.20); Globulin, Blood 3.2 g/dL (2.2-4.0); Potassium, Blood 4.2 mmol/L (3.5-5.5); Total Protein, Blood 5.1 g/dL (6.4-8.2)
--- NOTE | 2022-06-26 05:25 | NUR ---
SHIFT SUMMARY PT IS A/Ox4 AND FOLLOWS DIRECTIONS FROM STAFF. PT HAD TWO EPISODES OF AFIB THAT LASTED ~20-30MIN EACH. PT DID NOT NEED IV LOPRESSER FOR HE CONVERTED BACK TO SR. PT REPORTED MINOR CHEST TIGHTNESS DURING THESE EPISODES OF AFIB. PT HAS TWO WOUND VAC'S TO BOTH KNEES THAT HAVE HAD NO DRAINAGE DURING MY SHIFT. DRESSINGS WERE CHANGED VIA WOUND NURSE ON 06/25. PAIN MANAGED PER EMAR. MAINTAINED SPO2 >95% ON RA WITH NO SOB OR DYSPNEA NOTED. VSS, NADN T/O THE SHIFT
--- NOTE | 2022-06-26 17:18 | NUR ---
TRANSFER SUMMARY PATIENT ALERT AND ORIENTED. INDEPENDENT TO BATHROOM. CONTACT ISO FOR HX MRSA AND OPEN WOUNDS. MULTIPLE WOUNDS. R FOREARM, RIGHT LOWER ABD/GROIN, BILAT INNDER THIGHS, BILAT KNEES, LEFT INNER ANKLE. WOUND VAC TO BILAT KNEES PATENT. ALL OTHER DRESSINGS CHANGED THIS SHIFT. MEDICATED FOR PAIN PER EMAR. VOIDING WELL, TOLERATING REGULAR DIET. NEW IV PLACED IN R UPPER ARM. TELE ALTERNATING AFIB AND NSR. REPORT GIVEN TO MED FLOOR RN AND WALLPAPER INSPECTOR. PATIENT LEFT UNIT AT 1700 IN BED FOR ROOM 311.
--- NOTE | 2022-06-26 19:19 | NUR ---
PT WAS TRANSFERED FROM PCU THIS AFTERNOON. ORIENTED TO THE ROOM. RECIEVING PAIN MEDICATION NEEDED. BANDAGED ARE C/D/I.
[2022-06-27 04:37] LABS: Hematocrit 27.3 % (37.0-53.0); Hemoglobin 8.9 g/dL (13.5-17.5); Mean Corpuscular HGB Conc 32.6 g/dL (31.5-36.5); Mean Corpuscular Volume 95 fL (80-100); Mean Platelet Volume 9.7 fL (9.1-12.4); Platelet Count 455 K/mm3 (150-400); RDW Coefficient Variation 15.7 % (11.7-14.2); RDW Standard Deviation 54.4 fL (35.1-46.3); Red Blood Cell Count 2.87 M/mm3 (4.30-5.90); White Blood Cell Count 10.54 K/mm3 (4.00-11.30)
[2022-06-27 04:59] LABS: Anion Gap 5 mmol/L (6-16); Blood Urea Nitrogen 32 mg/dL (8-24); Bun/Creatinine Ratio 36.5 (12.0-20.0); CO2, Blood 31 mmol/L (21-32); Calcium, Blood 8.6 mg/dL (8.5-10.1); Chloride, Blood 104 mmol/L (98-108); Creatinine, Blood 0.88 mg/dL (0.60-1.20); Glomerular Filtration Rate 96 (60-); Glucose, Blood 118 mg/dL (70-99); Potassium, Blood 4.3 mmol/L (3.5-5.5); Sodium, Blood 140 mmol/L (136-145); Vancomycin, Trough 16.1 ug/mL (5.0-10.0)
--- NOTE | 2022-06-27 05:48 | NUR ---
SHIFT SUMMARY: AT START OF SHIFT TELI MONITOR CALLED, PATIENT WAS SUSTAINING IN THE 130'S. PATIENT WAS UP TO THE BATHROOM AND WAS ASYMPTOMATIC. HS DOSE OF MOTOPROLOL WAS GIVEN WITH GOOD EFFECT. BY 2116 HR WAS 120'S AND NOW TELEMETRY IS NSR WITH RATE OF 74. BILAT KNEE PAIN 6-03/02 IS WELL CONTROLED WITH ALTERNATED OXYCODONE AND TYLENOL. PATIENT HAS NOT SLEPT MUCH. REPORTED ABOUT AN HOUR. WOUND VAC HAS NO OUTPUT AND HAS HAD NO ALARMS THIS SHIFT. PATIENTREPORTED BM AND IS VOIDING WITHOUT DIFFICULTY. VANCO TROUGH WAS 16.1, NO CHANGES TO VANCO DOSING PER PHARM.
--- NOTE | 2022-06-27 06:33 | NUR ---
PAIN: PATIENT WAS GIVEN 25 MCG OF IV FENTANYL FOR BREATHROUGH PAIN 7/10.
--- NOTE | 2022-06-27 11:08 | NUR ---
AFIB 110-120 PATIENT CONVERTED FROM NSR TO AFIB AROUND [address] DE LA CRUZ. T.O. RECEIVED FOR ONE TIME DOSE OF DIGOXIN 0.25 MG IV. EMAR UPDATED.
--- NOTE | 2022-06-27 16:36 | NUR ---
Shift Summary A/Ox4, pleasant/cooperative. Independent. Had bm today. Some dressings changed and dated. Medicated for 6/10 bilateral knee pain per EMAR with good effect. Had shower. Converted to afib 110-120 then converted back to NSR 64 without any medical intervention, digoxin order held. No other acute events. Plan for PRASHANT.
--- NOTE | 2022-06-27 18:05 | NUR ---
Afib Tele reporting patient converted again to afib 150's. Patient resting in bed and urgently to bathroom. Has urgency and frequency with voiding, denies dysuria. Denies shortness of breath, dizzinessk, cp. Does appear tachypneic, but patient did just get back in bed. Verbalizes feeling "some flutter". Lopressor IV given, HR decreasing to 130's. WCTM.
--- NOTE | 2022-06-27 18:22 | NUR ---
DIGOXIN Sustaining afib 130's to 150's. T.O. from Dr. Mckeon for one time dose of 0.25 digoxin iv. EMAR updated.
--- NOTE | 2022-06-27 18:32 | NUR ---
HOLD DIGOXIN Patient converted back to NSR 60-70's just as Digoxin order was placed and awaiting pharmacy verification. Per Dr. Mckeon, hold Digoxin.
--- NOTE | 2022-06-28 01:26 | NUR ---
CARDIAC: @ 0055 TELI REPORTS PVC X3 AND CONVERSION TO A-FIB 120-140. @ 0000 A 6 BEAT RUN OF V-TACH. @ 0008 ANOTHER RUN OF V-TACH @ 0115 ANOTHER RUN OF V-TACH. VSS, REPORTING CHEST HEAVINESS. DR CERON WAS NOTIFIED AND ORDER WAS OBTAINED TO TRANSFER PATIENT TO PCU. RAW MATERIAL HANDLER AND HOUSE SUPPERVISOR WERE NOTIFIED.
--- NOTE | 2022-06-28 02:37 | NUR ---
PT ARRIVED TO PCU AT 0200, THIS RN ASSUMED CARE. PT SITTING UP IN BED, INTERACTING AND RESPONDING APPROPRIATELY TO STAFF. SEE CHART FOR VS. PT DENIES CHEST PAIN OR CHEST PRESSURE, DENIES SOB, DIZZINESS OR LIGHTHEADNESS. PT DENIES CURRENT PAIN BUT REPORTS IT WAS "BAD ABOUT AN HOUR OR SO AGO". PT APPEARS A LITTLE PALLOR. AFEBRILE AND NO DIAPHORESIS. REPORTS MILD NAUSEA W/OUT VOMITING. PT ORIENTED TO ROOM AND CALL LIGHT IN REACH. PT BELONGINGS IN W/PT IN ROOM. PT CURRENTLY RESTING IN BED.
[2022-06-28 04:16] LABS: Hematocrit 29.6 % (37.0-53.0); Hemoglobin 9.6 g/dL (13.5-17.5); Mean Corpuscular HGB 30.9 pg (26.0-34.0); Mean Corpuscular HGB Conc 32.4 g/dL (31.5-36.5); Mean Corpuscular Volume 95 fL (80-100); Mean Platelet Volume 9.5 fL (9.1-12.4); Platelet Count 488 K/mm3 (150-400); RDW Coefficient Variation 15.9 % (11.7-14.2); RDW Standard Deviation 54.5 fL (35.1-46.3); Red Blood Cell Count 3.11 M/mm3 (4.30-5.90); White Blood Cell Count 12.68 K/mm3 (4.00-11.30)
--- NOTE | 2022-06-28 04:16 | NUR ---
TRANSFER: LATE ENTRY FOR 06/28/22 @ 0150- REPORT WAS CALLED TO MO/REGULATORY AFFAIRS ANALYST. PATIENT WAS THEN TRANSFERED VIA BED. TALKING WITH STAFF, REPORTING CHEST HEAVINESS WAS EASING UP AND HE FELT BETTER. PATIEENT IS PALE AND SEEMS TIRED.
--- NOTE | 2022-06-28 05:30 | NUR ---
SHIFT SUMMARY PT A&O X4. RESPONDING APPROPRIATELY. DENIES CP OR CHEST PRESSURE. PT HR ELEVATED IN 120'S - 150'S, AT TIMES ELEVATING TO 160 BUT NOT SUSTAINING. IV LOPRESSOR GIVEN PER EMAR. PT THEN CONVERTED TO NSR W/HR IN 70'S. BP A LITTLE SOFT IN 90'S- 100'S. PT DENIES DIZZINESS OR LIGHTHEADNESS. PT REPORTS FEELING "TIRED AND WANTING TO GET SOME REST BUT CANNOT SINCE STAFF KEEPS WAKING HIM". PT UP TO BEDSIDE TO USE URINAL INDEPENDENTLY, TOLERATING WELL. PT EATING AND DRINKING WELL. WOUND VAC IN PLACE, NO DRAINAGE THIS SHIFT. OTHER WOUND DRESSINGS IN PLACE; C/D/I. PT REPORTS NAUSEA THAT COMES AND GOES, PT DID HAVE EPISODE OF VOMITING. 700 ML OUT IN EMESIS . PT DID NOT WANT MEDICATION FOR N/V. PT DENIES CURRENT PAIN IN KNEES OR GENERAL PAIN, STATES "HAD PAIN MEDICATION EARLIER AND IS DOING OKAY" REPORTS PAIN 4-5/10 AND STATES THIS IS TOLERABLE. PT NOW RESTING AND CALL LIGHT IS IN REACH
--- NOTE | 2022-06-28 18:00 | NUR ---
END OF SHIFT NOTE PT A&O X4, VERY PLEASANT & COOPERATIVE. PT INDEPENDENT IN RM. VSS. SPO2 > 92% ON RA. MONITOR SHOWING NSR, HR 70s-90s. WOUND VAC IN PLACE TO BILAT KNEES. PT C/O "L ANKLE & R KNEE" PAIN, PT MEDICATED PER EMAR/PT REQUEST T/O DAY W/ PT REPORT OF IMPROVEMENT. NO OTHER EVENTS THIS SHIFT.
--- NOTE | 2022-06-28 20:42 | NUR ---
ASSUMPTION OF CARE THIS RN ASSUMED CARE OF PT AT 1915. PT SITTING UP WATCHING TV IN BED. A&0 X4, LAUGHING AND JOKING WITH STAFF. VSS. PT DENIES CHEST PAIN OR CHEST PRESSURE. REPORTS MILD TIGHTNESS IN LUNGS BUT DENIES SOB, NO DYSPNEA NOTED. PT TEMP OF 100.7. HAS MOIST, NON PRODUCTIVE COUGH. PT REPORTS TENDERNESS IN LYMPH NODES AND FEELING A LITTLE TIRED. APPEARS TIRED AND PALE. DENIES DIZZINESS, LIGHTHEADNESS OR N/V. REPORTS 1 EPISODE OF EMESIS THIS MORNING BUT NONE SINCE THEN. LUNG SOUNDS ARE DIMINISHED IN THE BASES. WOUND VAC IN PLACE, PT REPORTS PAIN AND TENDERNESS IN KNEES, ESPECIALLY IN R KNEE. REPORTS PASSING BM TODAY, NO CHANGES OF CONCERNS WITH STOOL. STATES HAVING A HARD TIME STARTING URINATION AND FREQUENCY. STATES HAS BEEN GOING ON FOR "A LITTLE WHILE". DENIES DYSURIA, MALODOR OR DISCOLORATION.
--- NOTE | 2022-06-28 21:18 | NUR ---
PT REPORTS NAUSEA, DRY HEAVING W/EMESIS. PT FEELS WARM TO THE TOUCH. PT APPEARS PALLOR, DENIES SOB, DIZZINESS, OR LIGHTHEADNESS. PT DECLINES MEDICATION FOR NAUSEA AND JUST "WANTS TO REST". CALL LIGHT IN REACH AND PT APPEARS TO BE RESTING
--- NOTE | 2022-06-29 06:10 | NUR ---
SHIFT SUMMARY PT TIRED THROUGHOUT SHIFT, STATES HE "DOES NOT FEEL WELL" AND HAS NOT HAD GOOD SLEEP THE LAST FEW NIGHTS. PT DOES APPEAR TIRED AND PALE. PT WARM TO THE TOUCH AND TEMPERATURES IN THE 100'S. PT REPORTS SORE THROAT AND WORSENING COUGH. PT IS COUGHING UP MODERATE AMOUNT OF GREEN/YELLOW SPUTUM. VSS, ALTHOUGH PT HAD A FEW SOFT SBP IN HIGH 90'S. PT DENIES DIZZINESS OR LIGHTHEADNESS. DENIES CHEST PAIN, PRESSURE OR SOB. PT REPORTS MILD TIGHTNESS IN CHEST RELATED TO COUGH AND POSSIBLE "INDIGESTION". REPORTS PAIN IN BILAT KNEES, ANKLE AND HIPS THROUGHOUT SHIFT. MEDICATED PER EMAR. WOUND VAC IN PLACE W/OUT DRAINAGE. PT UP TO RESTROOM SEVERAL TIMES TO VOID. PT NOW RESTING. CALL LIGHT IN REACH AND BED IN LOW POSITION
[2022-06-29 09:34] LABS: BASOPHILS ABSOLUTE AUTO 0.03 K/mm3 (0.00-0.23); BASOPHILS PERCENT AUTO 0 % (0-2); EOSINOPHILS ABSOLUTE AUTO 0.06 K/mm3 (0.00-0.68); EOSINOPHILS PERCENT AUTO 1 % (0-6); Hematocrit 26.6 % (37.0-53.0); Hemoglobin 8.4 g/dL (13.5-17.5); IMMATURE GRAN ABSOLUTE AUTO 0.24 K/mm3 (0.00-0.10); IMMATURE GRAN PERCENT AUTO 3 % (0-1); LYMPHOCYTES ABSOLUTE AUTO 0.78 K/mm3 (0.84-5.20); LYMPHOCYTES PERCENT AUTO 8 % (21-46); MONOCYTES ABSOLUTE AUTO 0.51 K/mm3 (0.16-1.47); MONOCYTES PERCENT AUTO 6 % (4-13); Mean Corpuscular HGB 30.4 pg (26.0-34.0); Mean Corpuscular HGB Conc 31.6 g/dL (31.5-36.5); Mean Corpuscular Volume 96 fL (80-100); Mean Platelet Volume 9.8 fL (9.1-12.4); NEUTROPHILS ABSOLUTE AUTO 7.68 K/mm3 (1.96-9.15); NEUTROPHILS PERCENT AUTO 83 % (41-73); NRBC ABSOLUTE 0.02 K/mm3 (0.00-0.02); NRBC Auto 0.2 /100 WBC (0.0-0.2); Platelet Count 432 K/mm3 (150-400); RDW Coefficient Variation 16.7 % (11.7-14.2); RDW Standard Deviation 57.9 fL (35.1-46.3); Red Blood Cell Count 2.76 M/mm3 (4.30-5.90)
[2022-06-29 09:46] LABS: Albumin, Blood 2.2 g/dL (3.4-5.0); Albumin/Globulin Ratio 0.6 (0.8-1.8); Bilirubin, Total 0.2 mg/dL (0.1-1.0); Bun/Creatinine Ratio 32.6 (12.0-20.0); Calcium, Blood 7.5 mg/dL (8.5-10.1); Creatinine, Blood 0.92 mg/dL (0.60-1.20); Globulin, Blood 3.5 g/dL (2.2-4.0); Potassium, Blood 4.6 mmol/L (3.5-5.5); Total Protein, Blood 5.7 g/dL (6.4-8.2)
--- NOTE | 2022-06-29 09:49 | NUR ---
AM NOTE... ASSUMED CARE OF PT AT 0700. PT IS A&Ox4 AND VERY DROWSY DURING THIS ASSESSMENT. THE PT WAKES EASILY BUT FALLS BACK ASLEEP WHEN NOT BEING ADDRESSED. THE PT IS IN SR IN THE 80'S-90'S BP IS SOFT WITH SBPs IN THE 90'S BUT MAPS >65 AT THIS TIME. THE PT HAS 1+ EDEMA NOTED TO HIS BLE. WOUND VACs NOTED TO HIS BILATERAL KNEES. GOOD SUCTION NOTED TO THE WOUND VACs. THE PT IS ON RA WITH O2 SATS >92% L/S CLEAR IN THE UPPER LOBES COARSE AND DIM IN THE LOWER. BT PRESENT AND HYPERACTIVE, ABD SOFT AND NONTENDER TO PALPATION. THE PT'S TEMP DURING THIS ASSESSMENT WAS 102.3 HE WAS MEDICATED PER EMAR. WILL CONTINUE TO MONITOR.
--- NOTE | 2022-06-29 10:06 | NUR ---
PT UPDATE... THE PT'S BP STARTED TO TREND DOWN CURRENT BP IS 84/59, HR 87, TEMP 101.4. THE PT'S AM METOPROLOL WAS HELD PER NURSING JUDGMENT D/T LOW SBPs. THE PT STATES "I FEEL LIKE I AM GETTING THE FLU OR SOMETHING." WHEN ASKED HOW HE FEELS COMPARED TO YESTERDAY. WILL CONTINUE TO MONITOR.
[2022-06-29 13:25] LABS: Source, Urine Clean Catch
[2022-06-29 13:48] LABS: Bilirubin, Urine Neg (Neg); Blood, Urine 2+ (Neg); Color, Urine Yellow (P-Yellow); Glucose Qualitative, Urine Neg (Neg); Ketones, Urine Neg (Neg); Leukocyte Esterase, Urine Neg (Neg); Nitrite, Urine Neg (Neg); Protein, Urine Neg (Neg); Specific Gravity, Urine 1.015 (1.003-1.022); Urobilinogen, Urine NORM (Normal)
[2022-06-29 14:13] LABS: Appearance, Urine Hazy (Clear)
[2022-06-29 14:14] LABS: Amorphous Light (0-Heavy); Bacteria Mod /hpf; Squamous Epithelial Cells Rare /hpf (Few); Transitional Epithelial Cells Rare /hpf (0-Rare); White Blood Cells, Urine 0-2 /hpf (0-5)
--- NOTE | 2022-06-29 17:38 | NUR ---
SHIFT SUMMARY... THE PT CONTINUES TO BE FEBRILE THIS SHIFT WITH A TMAX OF 102.5. PT MEDICATED PER EMAR WITH MINIMAL RESULTS. THE PT HAS BEEN MEDICATED FOR PAIN PER EMAR Q4HRS. DRESSINGS WERE CHANGED THIS SHIFT BUT THE WOUND VAC DRESSING WAS NOT CHANGED PER THE PT'S REQUEST TODAY. THE PT WAS GIVEN A 500MLS BOLUS OF NS THIS AFTERNOON FOR SOFT BPs, THE PT RESPONDED WELL TO THE BOLUS. THE PT HAS BEEN IND UP IN THE ROOM TO THE BATHROOM. THIS EVENING THE PT STARTED TO HAVE C/O OF "TIGHTNESS" IN HIS CHEST, UPON ASSESSMENT THIS RN HEARD SCATTERED WHEEZES. A BREATHING TREATMENT WAS REQUESTED FROM RT. THE PT DENIES ANY N/V THIS SHIFT. CALL LIGHT IN REACH WILL CONTINUE TO MONITOR UNTIL REPORT IS GIVEN TO ONCOMING RN.
--- NOTE | 2022-06-29 20:26 | NUR ---
ASSUMPTION OF CARE THIS RN ASSUMED CARE AT 1915. PT UP IN BED WATCHING TV. APPEARS TIRED, BUT INTERACTING AND RESPONDING APPROPRIATELY. DENIES CHEST PAIN OR PRESSURE WELL SOB. REPORTS FEELING "FEELING TIGHT AND CONGESTED". LUNGS DO SOUND WHEEZY. RT IN FOR BREATHING TX. PT STATES HE FEELS LIKE HIS COUGH IS WORSENING AND THAT HE IS "STARTING TO FEEL SICK". WOUND VAC IN PLACE. DAY SHIFT RN SHOWED THIS RN NEW AREA OF DRAINAGE/PURULENT DRAINAGE UNDER L KNEE DRESSING. THIS RN ALSO NOTED SOME ON THE TOP SIDE OF R KNEE. PT ALSO REPORTS NEW ONSET OF DYSURIA WHEN VOIDING. DENIES MALODOR OR DISCOLORATION. PT RATES PAIN LEVEL 5-6/10 BUT STATES HE IS COMFORTABLE AND THAT CURRENTLY IT IS TOLERABLE. VSS, SBP 94/63 (73). PT REPORTED TEMPERATURE, ASSESSMENT SHOWED TEMP OF 99.4
--- NOTE | 2022-06-30 02:13 | NUR ---
THIS RN ON BREAK, UPON RETURN CHARGE NURSE REPORTS THAT PT COMPLAINED OF NOT FEELING WELL, TEMPERATURE TAKEN; 101.9. TYLENLOL GIVEN PER EMAR. UPON REASSESSMENT TEMPERATURE IS NOW AT 102.5. PT FEELS HOT TO TOUCH AND STATES HE "DOES NOT FEEL WELL AND IS NOT DOING WELL". PT CURLED UP IN BED. PT COUGH SEEMS TO BE WORSENING WELL. PT SOUNDS CONGESTED.
[2022-06-30 04:54] LABS: Hematocrit 23.6 % (37.0-53.0); Hemoglobin 7.6 g/dL (13.5-17.5); Mean Corpuscular HGB 30.9 pg (26.0-34.0); Mean Corpuscular HGB Conc 32.2 g/dL (31.5-36.5); Mean Corpuscular Volume 96 fL (80-100); Mean Platelet Volume 9.7 fL (9.1-12.4); Platelet Count 375 K/mm3 (150-400); RDW Standard Deviation 58.4 fL (35.1-46.3); Red Blood Cell Count 2.46 M/mm3 (4.30-5.90); White Blood Cell Count 6.53 K/mm3 (4.00-11.30)
[2022-06-30 05:31] LABS: Alanine Aminotransfer (ALT/SGP 60 U/L (12-78); Albumin/Globulin Ratio 0.6 (0.8-1.8); Alk Phos 128 U/L (50-136); Anion Gap 7 mmol/L (6-16); Aspartate Aminotrans (AST/SGOT 39 U/L (12-37); Bilirubin, Total 0.2 mg/dL (0.1-1.0); Blood Urea Nitrogen 39 mg/dL (8-24); Bun/Creatinine Ratio 41.4 (12.0-20.0); CO2, Blood 27 mmol/L (21-32); Calcium, Blood 7.8 mg/dL (8.5-10.1); Chloride, Blood 100 mmol/L (98-108); Creatinine, Blood 0.94 mg/dL (0.60-1.20); Globulin, Blood 3.2 g/dL (2.2-4.0); Glomerular Filtration Rate 91 (60-); Glucose, Blood 116 mg/dL (70-99); Potassium, Blood 4.4 mmol/L (3.5-5.5); Sodium, Blood 134 mmol/L (136-145); Total Protein, Blood 5.2 g/dL (6.4-8.2); Vancomycin, Trough 16.9 ug/mL (5.0-10.0)
--- NOTE | 2022-06-30 05:44 | NUR ---
SHIFT SUMMARY PT A&O THROUHGOUT SHIFT BUT OVERALL FATIGUE AND "FEELING BAD AND NOT DOING GOOD". PT FEBRILE W/ HIGHEST TEMP OF 102.5. MEDICATED PER EMAR. DECREASED TO 100.8. PT REPORTS INCREASED CONGESTION, COUGHING AND FEELING "FEVERISH". PT HOT TO TOUCH. SBP ON THE SOFT SIDE OF 92 - 94. HR ST IN 100'S. PT STILL EATING AND DRINKING. PT REPORTS INCREASED PAIN IN KNEES AND ANKLE. THIS RN DID NOT WHAT SEEMS TO BE INCREASED REDNESS AND POSSIBLE DRAINAGE UNDER WOUND VAC DRESSINGS. WILL REPORT TO ONCOMING NURSE. WOUND VAC IN PLACE, NO DRAINAGE IN CONTAINER. PT APPEARS MORE TIRED AND PALE/PALLOR THIS SHIFT. THIS RN NOTIFIED NIGHT RESIDENT OF THESE CHANGES. NEW ORDERS FOR TORADOL 1X FOR FEVER AND PAIN, THROAT LOZENGES AND MUCINEX.
--- NOTE | 2022-06-30 10:59 | NUR ---
ASSUMPTION OF CARE: PATIENT RESTING, DENIES CHEST JUVENTINO/PRESSURE OR SOB AT REST. SPO2 >95% AT REST AND RA. PATIENT LOOKS VISIBLY PALE, BLOOD PRESSURE SOFT MAP >62 AT TIME OF ASSUMPTION, PATIENT IN NO ACUTE PAIN, AFEBRILE AT TIME OF ASSESSMENT. OCCASSIONAL SOMETIME PRODUCTIVE COUGH NO SPUTUM YET. CALL PLACED TO PROVIDER FOR TWO INCIDENCES. FIRST PATIENT BLOOD PRESSURE SOFT, CALLED AND RECIEVED ORDERS FOR A 500mL OF FLUIDS. SECONDLY, PATIENT DEVELOPED SOME PLEURATIC PAIN FROM COUGHING, STAT CXR RECIEVED FROM PROVIDER, STILL PENDING RESULTS. PATIIENT TREATED FOR PAIN AND PLEURAL PAIN SUBSIDED. AT THIS TIME WILL CONTINUE TO MONITOR, HELD METOPROLOL AND LOVENOX DUE TO SOFT BLOOD PRESSURE AND DROP FROM 8.4 TO 7.6 ON Hgb, PROVIDER PLACED ORDERS FOR RESPIRATORY PANEL AND GI CONSULT. CALL TO DR. LOMBARDO TO CHECK AFTER CLINIC.CONTINUE TO MONITOR. PATIENT ASYMPTOMATIC BESIDES FATIGUE, DENIES DIZZINESS, OR SOB WITH EXERTION AT THIS TIME. WOUND VACS IN PLACE, WILL ENSURE CHANGE TODAY WITH WOUND CARE, OR SURGICAL STAFF. PATIENT HAS NO CONCERNS BUT IMPROVEMENT. WILL CONTINUE TO MONITOR UNTIL SHIFT CHANGE, STILL ALERT AND ORIENTED PLEASANT INCREASED HUNGER, OF NOTE CA+ 7.8 TODAY.
[2022-06-30 12:01] LABS: Adenovirus Not Detected (NOT DETECT); Coronavirus 229E Not Detected (NOT DETECT); Coronavirus HKU1 Not Detected (NOT DETECT); Coronavirus NL63 Not Detected (NOT DETECT); Coronavirus OC43 Not Detected (NOT DETECT); Human Metapneumovirus Not Detected (NOT DETECT); Human Rhinovirus/Enterovirus Not Detected (NOT DETECT); Influenza A/2009-H1 Detected (NOT DETECT); Influenza A/H1 Not Detected (NOT DETECT); Influenza A/H3 Not Detected (NOT DETECT); SARS-Cov-2 (COVID-19), BioFire Not Detected (NOT DETECT)
[2022-06-30 12:02] LABS: Bordetella pertussis Not Detected (NOT DETECT); Chlamydophila pneumoniae Not Detected (NOT DETECT); Influenza B Not Detected (NOT DETECT); Mycoplasma pneumoniae Not Detected (NOT DETECT); Parainfluenza Virus 1 Not Detected (NOT DETECT); Parainfluenza Virus 2 Not Detected (NOT DETECT); Parainfluenza Virus 3 Not Detected (NOT DETECT); Parainfluenza Virus 4 Not Detected (NOT DETECT); Respiratory Syncytial Virus Not Detected (NOT DETECT)
--- NOTE | 2022-06-30 16:38 | NUR ---
WOUND VAC DRESSING CHANGED. BL ONE PICE ANTIMICROBIAL GAUZE AND ONE PIECE BLACK FOAM REMOVED. TWO PIECES OF BLACK FOAM APPLIED BL. VAC SET TO CONTINUOUS 120 MMHG. ALL OTHER DRESSINGS CHANGED PER ORDERS. PT TOLERATED WELL
--- NOTE | 2022-06-30 18:38 | NUR ---
END OF SHIFT: NEURO: A/O X 4 NO CHANGES CARDIAC: PATIENT SWITCHED INTO AFIB TOWARDS END OF SHIFT, IV WENT BAD NO IV PLACEMENT AT THIS TIME PROVIDER AWARE, METOPROLOL AND 1 X ORDER OF .25 DIG GIVEN. WILL CONTINUE TO MONITOR. PATIENT DENIES CHEST PAIN/PRESSURE, OR SOB AT REST. PULM: PLUERATIC CHEST PAIN, CXR TODAY PLEASE SEE. RA >98%. COUGHING MORE THAN USUAL, NO SPUTUM OF THIS ASSESSMENT, PATIENT POSITIVE FOR FLU A DROPLET PRECAUTIONS PLACED. GI/: SOME SMALL BM, STILL HAVING DIFFICULTY WITH URINATION. WILL INFORM NIGHT RN AND CONTINUE TO MONITOR. CONSULTS: DR. LOMBARDO CONSULTED FOR WORSENING ANEMIA NO SIGNS OF ACUTE BLEEDING FROM HOSPITALIST OR THIS RN NOTED. WILL CONTINUE TO MONITOR. PATIENT HR IS STILL ELEVATED WILL INFORM NIGHT RN. NO FURTHER CONCERNS FROM PATIENT ONLY CONCERNS FROM THIS SCRAPPER IS HR AND WILL INFORM NIGHT RN OF SITUATION.
[2022-07-01 01:58] LABS: Hematocrit 23.3 % (37.0-53.0); Hemoglobin 7.5 g/dL (13.5-17.5); Mean Corpuscular HGB 31.4 pg (26.0-34.0); Mean Corpuscular HGB Conc 32.2 g/dL (31.5-36.5); Mean Corpuscular Volume 98 fL (80-100); Mean Platelet Volume 9.5 fL (9.1-12.4); Platelet Count 320 K/mm3 (150-400); RDW Coefficient Variation 17.2 % (11.7-14.2); RDW Standard Deviation 60.4 fL (35.1-46.3); Red Blood Cell Count 2.39 M/mm3 (4.30-5.90); White Blood Cell Count 6.17 K/mm3 (4.00-11.30)
[2022-07-01 02:19] LABS: Albumin/Globulin Ratio 0.6 (0.8-1.8); Bilirubin, Total 0.2 mg/dL (0.1-1.0); Bun/Creatinine Ratio 33.8 (12.0-20.0); Calcium, Blood 7.5 mg/dL (8.5-10.1); Creatinine, Blood 0.95 mg/dL (0.60-1.20); Globulin, Blood 3.3 g/dL (2.2-4.0); Percent Saturation 5.6 % (20.0-50.0); Potassium, Blood 4.6 mmol/L (3.5-5.5); Total Protein, Blood 5.3 g/dL (6.4-8.2)
--- NOTE | 2022-07-01 06:52 | NUR ---
SHIFT SUMMARY UPON START OF SHIFT, PT HAD SOFT BLOOD PRESSURES AND THEY CONTINUED TO DECREASE, HR IN AFIB W/HR 130'S - 140'S. PT HAD NO IV ACCESS AND PER DAY SHIFT ACCESS WAS NOT ABLE TO BE OBTAINED OR MAINTAINED. THIS RN CALLED PROVIDER TO NOTIFY OF BP, HR AND IV ACCESS. CENTRAL LINE PLACED. ORDERS FOR NS AT 100 MLS, LOPRESSOR PUSH AND REASSESS. AFTER THIS, BLOOD PRESSURE AND HR STILL DID NOT IMPROVE. THIS RN CALLED RESIDENT TO NOTIFY, NEW ORDERS FOR 250 ML NS BOLUS, 5 MG CARDIZIEM PUSH AND REASSESS. AFTER COMPLETED, PT BP HAS SEEMED TO BE TRENDING UPWARDS BUT STILL SOFT IN LOW TO MID 90'S. HR 90'S TO 1 TEENS, WITH INTERMITTENT TOUCHES IN 120'S. WILL PASS ALONG TO ONCOMING NURSE. DURING ALL THESE EVENTS, PT WAS A&O AND INTERACTING, RESPONDING APPROPRIATELY. PT DENIES DIZZINESS, LIGHTHEADNESS OR ANY SYMPTOMS. PT DENIES CHEST PAIN OR PRESSURE, DENIES SOB. PT WAS AGITATED AT START OF SHIFT AND DURING EXPLANATION OF NEED FOR IV ACCESS (CENTRAL LINE). RISKS AND BENEFITS EXPLAINED, PT AGREED AFTER INTIALLY NOT WANTING IT. PT CALMED DOWN AFTER PLACEMENT AND AFTER BEING SETTLED. PT REPORTS WORSENING COUGH AND CONGESTION.
--- NOTE | 2022-07-01 07:43 | NUR ---
AM ASSESSMENT: Pt very agitated, angry. States that he feels like his patient rights were not followed. Pt states that "i didn't want this line in my neck, but they kept pestering me until I gave in". Tried to provide reassurance and understanding, however pt still visibly upset. LS with wheezing, but denies SOB. HR irregular, tele showes afib. BT positive, Pulses palp. Wound vac to Bilat. knees. Other wounds with dressings intact. See photos. Will provide wound care when pt less agitated. IVF running into central line without issue. Pt call light in reach. Will continue to monitor.
--- NOTE | 2022-07-01 17:51 | NUR ---
Shift Summary: Pt became much less irritated and angery after this AM assessment. Pt was cooperative and pleasant during all care. Pain was managed with oxycodone. HR remained in afib with rate 100-120. BP remained soft in the 90's-100's systolically. Pt still has some wheezing throughout but denies SOB. Low grade temp today that improved after tylenol. All wound dressings (except wound vac dressings) were changed. They were cleaned with NS, calcium alginate was place with boarder dressing over top. Pt Tolerated well. Denies other needs at this time. Stable at end of shift, will report to night RN.
--- NOTE | 2022-07-01 18:20 | NUR ---
Update: Pt informed RN that he had a "raised bump" in mouth. Raised, white bump noted on R side mouth, under tongue. Bump is firm to touch, no pain noted. Will monitor and report this to night RN and have physician informed. Stable at this time.
[2022-07-02 00:25] LABS: Stool Occult Blood Guaiac 1 Neg (Neg)
--- NOTE | 2022-07-02 05:56 | NUR ---
SHIFT SUMMARY ASSUMED CARE OF PT AT 1900. PT IS A/OX4. HEART SOUNDS IRREGULAR. HE RANGED FROM 110-130 TOUCHING 150S. LUNG SOUNDS DIMINISHED. PT HAS A MOIST COUGH T/O THE NIGHT. C/O SORE THROAT AND DRY MOUTH, MEDICATED PER EMAR. PT IS INDEPEDNET IN THE ROOM. WOUND DRESSINGS C/D/I. PT C/O PAIN IN HIS LEGS, MEDICATED PER EMAR.
[2022-07-02 08:47] LABS: Hematocrit 26.9 % (37.0-53.0); Hemoglobin 8.4 g/dL (13.5-17.5); Mean Corpuscular HGB 30.1 pg (26.0-34.0); Mean Corpuscular HGB Conc 31.2 g/dL (31.5-36.5); Mean Corpuscular Volume 96 fL (80-100); Mean Platelet Volume 9.7 fL (9.1-12.4); Platelet Count 376 K/mm3 (150-400); RDW Coefficient Variation 17.2 % (11.7-14.2); RDW Standard Deviation 60.1 fL (35.1-46.3); Red Blood Cell Count 2.79 M/mm3 (4.30-5.90); White Blood Cell Count 7.52 K/mm3 (4.00-11.30)
--- NOTE | 2022-07-02 08:57 | NUR ---
AM NOTE: PATIENT ALERT AND ORIENTED X4. ABLE TO MAKE NEEDS KNOWN. PERRLA. DENIES NUMBNESS/TINGLING. UP IND TO BATHROOM. THIS RN TO HELP ASSIST WITH LINES AND WOUND VAC. ON ROOM AIR, LUNGS SOUNDING DIM AND COARSE. DENIES SOB. OCCASIONAL COUGH. COMPLAINS OF INTERMIT SORE THROAT. PRN LOZENGES. TELE SHOWING AFIB WITH HR 100-130'S THIS AM. BP ON SOFTER SIDE. PO METOPROLOL GIVEN. DENIES CHEST PAIN/PRESSURE/PALPITATIONS. HR UP TO 150'S WHEN IN BATHROOM, BUT DOES NOT SUSTAIN. PPP. HEART SOUNDS IRREGULAR AND DISTANT. TOLERATING PO DIET. DENIES ABDOMINAL PAIN/NAUSEA. BOWEL MOVEMENTS REGULAR. DENIES STOOL SOFTNER THIS AM. DENIES ANY DARK/MARROON/RED IN STOOL. COMPLAINS OF BILATERAL KNEE AND LEFT ANKLE PAIN. PRN PAIN MEDS GIVEN THIS AM WITH SOME RELIEF. MULTIPLE WOUNDS TO BILATERL KNEES, LEFT ANKLE, RIGHT FA, BILATERAL GROIN, RIGHT LOWER ABDOMEN, AND MULTIPLE SCATTERED SCABS. WOUND VAC TO BILATERL KNEES WITH NO LEAKS AT 120 MMHG. NO DRAINGE SEEN IN WOUND VAC THIS AM. KNEES RED IN COLOR SURROUNDING WOUND VAC AND SLIGHTLY SWOLLEN. CENTRAL LIGHT TO RIGHT EJ. DRAWING AND FLUSHING WELL. CAPS CHANGED THIS AM WITH LABS. DRESSING INTACT. VERY SCANT DRAINAGE AT SITE UNDER CHG PATCH. WILL CONTINUE TO MONITOR. CALL LIGHT IN REACH.
[2022-07-02 09:07] LABS: Albumin, Blood 2.3 g/dL (3.4-5.0); Albumin/Globulin Ratio 0.6 (0.8-1.8); Bilirubin, Total 0.2 mg/dL (0.1-1.0); Creatinine, Blood 0.79 mg/dL (0.60-1.20); Globulin, Blood 3.6 g/dL (2.2-4.0); Potassium, Blood 4.2 mmol/L (3.5-5.5); Total Protein, Blood 5.9 g/dL (6.4-8.2)
--- NOTE | 2022-07-02 10:10 | NUR ---
CALL PLACED TO LIABILITY CLAIMS MANAGER RISHABH. PLAN FOR LIABILITY CLAIMS MANAGER TO VISIT PATIENT AND HELP WITH DRESSING CHANGES THIS AFTERNOON. PATIENT UPDATED.
--- NOTE | 2022-07-02 12:43 | NUR ---
ZIPPER REPAIRER BRANDI ASSESSING AND REDRESSING WOUNDS AT THIS TIME.
--- NOTE | 2022-07-02 13:55 | NUR ---
BL KNEE WOUND VAC DRESSING CHANGED. TWO PIECES BLACK FOAM REMOVED BL. ONE PIECE BLACK FOAM REAPPLIED BL. VAC SET CONTINUOUS 120MMHG. PT TOLERATED WELL. NEXT CHANGE THURSDAY
--- NOTE | 2022-07-02 16:28 | NUR ---
DR. LOMBARDO IN TO SEE PATIENT. PLAN FOR EGD TOMORROW 07/03. ONLY WATER AFTER MIDNIGHT TONIGHT, THEN NPO AT 11AM ON 07/03 TO PREP FOR EGD. PATIENT UPDATED. SEE DR. LOMBARDO'S ORDERS.
--- NOTE | 2022-07-02 17:19 | NUR ---
SHIFT SUMMARY: NO ACUTE CHANGES, SEE PREVIOUS NOTE FOR UPDATES. ALL WOUNDS DRESSINGS CHANGED TODAY PER SOFTWARE INTEGRATION DEVELOPER. REMAINS ON ROOM AIR. TELE CONTINUES TO SHOW AFIB WITH ELEVATED HR 100-130'S. TOLERATING PO DIET. PLAN FOR EGD 07/03. ONLY WATER TONIGHT AFTER MIDNIGHT AND PLAN FOR NPO STARTINGA T 11 AM ON 111O. TYLENOL GIVEN FOR TEMP OF 99.9, TRENDING DOWN. CENTRAL LINE DRESSING CHANGED. BP REMAINS ON SOFTER SIDE. PATIENT STATES HE IS OVERALL FEELING BETTER. CALL LIGHT IN REACH. WILL CONTINUE TO MONITOR AND REPORT OFF TO ONCOMING RN.
[2022-07-03 04:07] LABS: Hematocrit 24.5 % (37.0-53.0); Hemoglobin 7.8 g/dL (13.5-17.5); Mean Corpuscular HGB 30.4 pg (26.0-34.0); Mean Corpuscular HGB Conc 31.8 g/dL (31.5-36.5); Mean Corpuscular Volume 95 fL (80-100); Mean Platelet Volume 9.3 fL (9.1-12.4); Platelet Count 354 K/mm3 (150-400); RDW Standard Deviation 59.1 fL (35.1-46.3); Red Blood Cell Count 2.57 M/mm3 (4.30-5.90); White Blood Cell Count 5.08 K/mm3 (4.00-11.30)
[2022-07-03 04:22] LABS: Vancomycin, Trough 14.7 ug/mL (5.0-10.0)
[2022-07-03 04:24] LABS: Albumin, Blood 2.1 g/dL (3.4-5.0); Albumin/Globulin Ratio 0.6 (0.8-1.8); Bilirubin, Total 0.1 mg/dL (0.1-1.0); Calcium, Blood 8.1 mg/dL (8.5-10.1); Creatinine, Blood 0.9 mg/dL (0.60-1.20); Globulin, Blood 3.5 g/dL (2.2-4.0); Magnesium, Blood 1.8 mg/dL (1.6-2.4); Potassium, Blood 4.4 mmol/L (3.5-5.5); Total Protein, Blood 5.6 g/dL (6.4-8.2)
--- NOTE | 2022-07-03 05:32 | NUR ---
SHIFT SUMMARY ASSUMED CARE OF PT AT 1900. PT IS A/OX4. HEART SOUNDS IRREGULAR. TELE SHOWED AFIB BETWEEN 110-130S. LUNG SOUNDS VERY COURSE TODAY; MORE SO THAN YESTERDAY. PT C/O SOB, RT NOTIFIED AND PTFELT BETTER AFTER BREATHING TREATMENT. PT REMAINED ON RA T/O THE NIGHT. WOUND VAC REENFORCED DUE TO LEAK. PT HAS BEEN HAVING ONLY WATER SINCE MIDNIGHT. PT MEDICATED PER EMAR FOR PAIN.
--- NOTE | 2022-07-03 05:40 | NUR ---
SHIFT SUMMARY ASSUMED CARE OF PT AT 1900. PT IS A/OX2-3. IN ROOM. HEART SOUNDS REGULAR. LUNG SOUNDS COARSE. PT WAS ON 3L NC AND BIPAP TOLERATED. PT ONLY TOLERATED BIPAP FOR AN HOUR AT A TIME BEFORE TAKING OFF. PT WAS A 1P SBA TO BSC. PT HAS A HEALING SCRATCH ON BACK AND VARIES BRUSING T/O ARMS AND LEGS. PT BECAME MORE ALERT THIS AM AROUND 0400 AND TOLERATED MASK FOR 2 HOURS.
--- NOTE | 2022-07-03 10:36 | NUR ---
AM NOTE: PATIENT ALERT AND ORIENTED X4. UP IND TO BATHROOM. DENIES NUMBNESS/TINGLING. ON ROOM AIR SATING ABOVE 95%. TELE SHOWING AFIB WITH HR 100-130'S. UP TO 150'S WHEN UP OT BATHROOM ALTHOUGH DOES NOT SUSTAIN. BP ON SOFTER SIDE. PPP. DENIES CHEST PAIN/PRESSURE/PALPITATION. NPO AT THIS BESIDES WATER, PER DR. LOMBARDO UNITL 1100. AT [address] LOMBARDO. PLAN FOR EGD TODAY AROUND 1300ISH. PATIENT UPDATED AND EDUCATED. DENIES ABDOMINAL PAIN/NAUSEA. DENIES ANY BLOODY/DARK STOOLS. COMPLAINS OF BILATERAL KNEE PAIN WELL LEFT ANKLE. MEDICATED PER EMAR. MULTIPLE WOUNDS TO BILATERL KNEES/THIGHS, LEFT ANKLE, RIGHT GROIN, RIGHT FA AND SCATTERED SCABS/BRUISING. AUTOMATIC MOUNTER IN YESTERDAY TO CHANGE DRESSINGS. NEXT DRESSING CHANGE WEDNESDAY 07/04 PER AUTOMATIC MOUNTER. WOUND VAC TO CONTINUOUS 120 MMHG. NO DRAINAGE NOTED. CENTRAL LINE TO TKO, DRAWING AND FLUSHING WELL. WILL CONTINUE TO MONITOR, DENIES NEEDS. CALL LIGHT IN REACH.
--- NOTE | 2022-07-03 15:13 | NUR ---
UPDATE RECIEVED FROM DAY SURG: EGD CANCELLED FOR DAY DUE TO ELEVATED HR AND OKAY TO FEED PATIENT. PATIENT EATING A LATE LUNCH AT THIS TIME, AND UPDATED ON PLAN. THIS RN UPDATED DAY SURG THAT WE HAVE THE OPTION FOR IV METOPROLOL TO HELP WITH RATE CONTROL, ALTHOUGH THE ORDER STATES TO NOT GIVE UNLESS HR >150. BP HAVE REMAINED SOFT. SEE CHARTED BP AND HR THROUGHOUT DAY SHIFT. DR. DE LA CRUZ AWARE OF BP AND AFIB RATE UPON ROUNDING. NO NEW ORDERS FOR THIS RN.
--- NOTE | 2022-07-03 15:49 | NUR ---
CARE APPROVAL Patient let Dory student nurse be part of care.
--- NOTE | 2022-07-03 16:49 | NUR ---
NEW ORDERS FOR RATE CONTROL ACKNOWLEDGED. PATIENT UPDATED ON PLAN. 25 MG PO METOPROLOL TARTRATE GIVEN NOW. WILL MONITOR CARDIAC STATUS CLOSELY AND ASSESS IF IV METOPROLOL IS NEEDED ADDITIONALLY FOR HR >120 AFTER ONSET/PEAK OF PO METOPROLOL TARTRATE. DENIES NEEDS. IV VANCO INFUSING AT THIS TIME. CALL LIGHT IN REACH. REFRIGERATION SERVICE TECHNICIAN UPDATED ON HR CONTROL GOALS.
--- NOTE | 2022-07-03 18:49 | NUR ---
SHIFT SUMMARY: SEE PREVIOUS NOTES FOR UPDATES THROUGHOUT DAY. REMAINS ON ROOM AIR. TELE SHOWING AFIB WITH HR 100-110'S POST EXTRA PO METOPROLOL TARTRATE DOSE AT 1640ISH. BP REMAINS SOFT BUT STABLE. THIS RN CONTINUEING TO WATCH TELE CLOSELY TO ASSESS NEED FOR IV METOPROLOL. CONTINUES TO DENY CHEST PAIN/PRESSURE. TOLERATING PO DIET. UP TO BATHROOM IND. WOUND DRESSINGS REMAINS C/D/I. NO DRAINAGE VIA WOUND VACS. INTERMIT BILATERL KNEE AND LEFT ANKLE PAIN. MEDICATED PER EMAR. CALL LIGHT IN REACH. WILL CONTINUE TO MONITOR AND REPORT OFF TO ONCOMING RN.
--- NOTE | 2022-07-03 22:03 | NUR ---
ASSUMPTION OF CARE THIS RN ASSUMED CARE OF PATIENT AT 1900. REPORT TAKEN FROM ABDOUL HERNANDEZ. PATIENT CONTINUES TO BE IN AFIB WITH OCCASIONAL PVC'S. HR REMAINS 100-110S. HR INCREASES TO 120'S WITH EXERTION/AMBULATION. BP STABLE. AFEBRILE. PATIENT IS INDEPENDENT WITH ADL'S AND IS ABLE TO DISCONNECT AND RECONNECT BILATERAL KNEE WOUND VACS NEEDED; STEADY GAIT NOTED, BUT PAINFUL LEGS WHEN AMBULATING. MEDICATED PER EMAR FOR HEADACHE AND BILATERAL KNEE PAIN. ALL I/D AND WOUND VAC DRESSINGS C/D/I. CLINICAL SUPERVISOR SCHEDULED FOR DRESSING CHANGE VISIT 07/04. REJ CENTRAL LINE INFUSING NS TKO. DRESSINGS C/D/I. PATIENT ON CONTACT/DROPLET ISOLATION FOR MRSA/INFLUENZA. MD LOMBARDO TO BEDSIDE AROUND 1999 TO DISCUSS EGD PLANS FOR 07/04. PATIENT WILL BE WATER/ICE CHIPS ONLY AT 0300 AND NPO AT NOON ON 07/04 FOR EGD PROCEDURE. PATIENT VERBALIZED UNDERSTANDING. PATIENT APPEARS TO BE RESTING AT THIS TIME. BED IN LOWEST POSITION AND CALL LIGHT WITHIN REACH. THIS RN WILL REVIEW CHART AND CONTINUE TO MONITOR AND PROVIDE INTERVENTIONS NEEDED/ORDERED.
--- NOTE | 2022-07-04 04:37 | NUR ---
SHIFT SUMMARY PATIENT ALERT AND ORIENTED X4. NO ACUTE EVENTS DURING THIS SHIFT. CALM AND COOPERATIVE WITH CARE. CALLS STAFF APPROPRIATELY. PATIENT CONTINUES TO BE IN AFIB WITH OCCASIONAL PVC'S. HR 90-110S DURING THIS SHIFT; HR INCREASES TO 120'S WITH AMBULATION AND BATHROOM USE. DENIES CHEST PAIN/PRESSURE. MEDICATING PER EMAR FOR HR AND PAIN. BP STABLE. AFEBRILE. O2 SATS >95% ON RA. PATIENT INDEPENDENT WITH ADL'S. PATIENT IS ABLE TO DISCONNECT/RECONNECT BILATERAL KNEE WOUND VACS INDEPENDENTLY. ALL WOUND DRESSINGS REMAIN C/D/I. PATIENT ON WATER/ICE CHIPS ONLY SINCE 0300 AND WILL BE NPO AT 1200 PER MD LOMBARDO ORDER. DROPLET/CONTACT ISOLATION PRECAUTIONS REMAIN IN PLACE. BED IN LOWEST POSITION AND CALL LIGHT WITHIN REACH. THIS RN WILL CONTINUE TO MONITOR UNTIL SHIFT CHANGE AT 0700.
--- NOTE | 2022-07-04 09:31 | NUR ---
CONTACTED ABOUT PT H&H GOING DOWN 07/03. NO NEW H&H WAS DRAWN 07/04. DR NOTIFIED AND WILL LOOK TO SEE IF H&H IS TO BE REDRAWN.
[2022-07-04 11:20] LABS: Hematocrit 26.2 % (37.0-53.0); Hemoglobin 8.4 g/dL (13.5-17.5); Mean Corpuscular HGB 30.8 pg (26.0-34.0); Mean Corpuscular HGB Conc 32.1 g/dL (31.5-36.5); Mean Corpuscular Volume 96 fL (80-100); Mean Platelet Volume 9.8 fL (9.1-12.4); Platelet Count 397 K/mm3 (150-400); RDW Coefficient Variation 16.9 % (11.7-14.2); RDW Standard Deviation 58.9 fL (35.1-46.3); Red Blood Cell Count 2.73 M/mm3 (4.30-5.90); White Blood Cell Count 6.13 K/mm3 (4.00-11.30)
[2022-07-04 11:34] LABS: Albumin, Blood 2.1 g/dL (3.4-5.0); Anion Gap 3 mmol/L (6-16); Blood Urea Nitrogen 25 mg/dL (8-24); Bun/Creatinine Ratio 29.9 (12.0-20.0); CO2, Blood 30 mmol/L (21-32); Calcium, Blood 8.3 mg/dL (8.5-10.1); Chloride, Blood 108 mmol/L (98-108); Creatinine, Blood 0.84 mg/dL (0.60-1.20); Glomerular Filtration Rate 97 (60-); Glucose, Blood 108 mg/dL (70-99); Phosphorus, Blood 3.7 mg/dL (2.5-4.9); Potassium, Blood 4.5 mmol/L (3.5-5.5); Sodium, Blood 141 mmol/L (136-145)
--- NOTE | 2022-07-04 13:19 | NUR ---
WOUND VAC DRESSING CHANGE. ONE PIECE OF BLACK FOAM REMOVED BL. ONE PIECE BLACK FOAM APPLIED BL. VAC SET CONTINUOUS 120 MMHG. PT TOLERATED WELL
--- NOTE | 2022-07-04 15:47 | NUR ---
07/04/22 1547 Bolivar Mcclure History, Chart, Medications and Allergies reviewed before start of procedure.MONITOR INTACT WITH CONTINUOUS PULSE OXIMETRY AND INTERMITTENT BP.3-LEAD EKG REVIEWED WITH PHYSICIAN PRIOR TO START OF PROCEDURE.O2 VIA POM INTACT THROUGHOUT SEDATION/PROCEDURE.
--- NOTE | 2022-07-04 15:48 | NUR ---
PT FROM [facility] TO [facility] FOR EGD. PT WAS UP AMBULATING TO IN ROOM AND TO [facility]. PT HAS IV ACESS IN RIGHT IJ VIA QUAD LUMEN CVC. PT A/O. PT ALSO HAS SEVERAL WOUNDS BANDAGED. SEE RECORDS
--- NOTE | 2022-07-04 16:29 | NUR ---
1615: DR. HALL HERE TO SEE PT. H&P, EKG, LABS REVIEWED. CASE CANCELLED D/T PT STILL IN A-FIB RVR.
--- NOTE | 2022-07-04 16:31 | NUR ---
1625 PT RETURNED TO [facility]
--- NOTE | 2022-07-04 16:34 | NUR ---
UPDATE PT ARRIVED TO PCU ROOM AFTER THE ATTEMPT TO DO EGD PROCEDURE AT 1630. OR NURSE REPORTED THAT THE PT HR WAS STILL TOO UNSTABLE AND THE PT SBP'S WERE TOO SOFT FOR ANESTHESIOLOGY. PT EXPRESSED FRUSTRATION ABOUT PROCEDURE NOT BEING DONE STATING "I MIGHT WELL GO HOME IF THEY ARE NOT GOING TO DO ANYTHING." PT WAS ABLE TO TRANSFER SELF FROM [facility] TO THE HOSPITAL BED ON HIS OWN, TOLERATED WELL. PT HOOKED HIMSELF UP TO WOUND VAC. PT OFFERED 1/2 SANDWICH AND SOMETHING TO DRINK, PT AGREED. PT THEN STATED "I HAVE NOT EATEN ANYTHING FOR 2 DAYS FOR NOTHING." SANDWICH AND DRINK PROVIDED. NOTIFIED OF PROCEDURE BEING CANCELLED.
--- NOTE | 2022-07-04 18:11 | NUR ---
SHIFT SUMMARY PT A/OX4 AND COOPERATIVE OF CARE. PT BP'S STABLE BUT SBP LOWERED TO THE 90-100'S AROUND 1530 WHEN HE LEFT PCU FOR EGD PROCEDURE. PROCEDURE CANCELLED, SEE PRVIOUS NOTES. PT HR AVERAGED 100-120'S WITH FEW BRIEF PERIODS OF TACHING UP TO 130-140'S, RETURNED TO 100-120'S VERY QUICKLY. OTHER VSS THROUGHOUT SHIFT WITH O2 SATS >95% ON RA. NO REPORT OF CHEST PAIN/PRESSURE THROUGHOUT SHIFT. NO REPORT OF SOB/DYSPNEA THROUGHOUT SHIFT. PT SEEN BY WOUND [facility]INIC RN, BANDAGES CHANGED. PT EXPRESSED FRUSTRATION OVER CANCELLED EGD, SEE PREVIOUS NOTES. PT INDEPENDENT IN ROOM, ABLE TO DISCONNECT/RECONNECT WOUND VAC ON HIS OWN. PT HAS CENTRAL LINE ON RIGHT SIDE OF NECK, ABX RUNNING PER EMAR AND TKO TO START WHEN ABX IS FINISHED.
[2022-07-05 04:40] LABS: Hematocrit 25.7 % (37.0-53.0); Hemoglobin 8.3 g/dL (13.5-17.5)
--- NOTE | 2022-07-05 05:08 | NUR ---
SHIFT SUMMARY PT A&Ox4, CALLS AND COMMUNICATES NEEDS APPROPRIATELY. VSS, BP STABLE, AFIB 100-115, ONLY TACHING UP TO 130's VERY BRIEFLY WHILE COUGHING, DENIES CP/PRESSURE. NO RUNS OF V-TACH THIS SHIFT. SpO2> 92% ON RA, DENIES SOB. PT IND IN ROOM. NO S/S OF BLEEDING THIS SHIFT. DR. LOMBARDO SPOKE WITH PT AT START OF SHIFT REGARDING PLAN FOR SCOPE. NO ACUTE EVENTS THIS SHIFT, WILL REPORT TO DAY SHIFT RN.
--- NOTE | 2022-07-05 09:54 | NUR ---
ASSUMPTION OF CARE: NEURO: ALERT AND ORIENTED, ABLE TO MAKE COMPLEX DECISIONS, PLEASANT AND COOPERATIVE WITH CARE. CARDIAC: SBP 100'S AND HR IN THE 100-120 WITH AFIB, CURRENLTY 105, STILL GAVE METOPROLOL DUE TO HR CONTROL, WILL MONITOR BP MORE FREQUENTLY, PATIENT ADVISED OF HYPOTENSION SYMPTOMS AND TEACH BACK WAS REACHED. PATIENT DENIES CHEST PAIN OR SOB. INCREASED LEG EDEMA NOTED, WILL INFORM PROVIDER. AFEBRILE AT THIS TIME. PULM: PATIENT ENDORSES WHEN AVAILABLE HE WOULD LIKE A BREATHING Tx. RT AWARE, RT WAS AWAITING PATIENT TO FINISH WITH MEAL. PATIENT HAS BEEN COUGHING, NON PRODUCTIVE OF THIS MOMENT, DENIES SOB WITH EXERTION AT THIS TIME, WILL CONTINUE TO MONITOR. GI/: PATIENT DENIES BLOOD IN THE STOOL, DENIES COFFEE GROUND EMESIS, PATIENT STILL CONSULTED WITH DR. LOMBARDO WAS INFORMED BY CHARGE PLAN FOR PATIENT TO HAVE EGD AND COLONOSCOPY THURSDAY EVENING. PATIENT AWARE AND EDUCATED. SKIN/WOUND: PATIENT STILL HAS WOUND VAC TO BILATERAL KNEES. MEPILEX OVER LEFT ANKLE, PATIENT ENDORSES DURING WOUND CHANGE YESTERDAY, SIGNIFICANTLY IMPROVED WOUND BEDS. PATIENT BEATRICE/LABS: Hgb 0.1 DOWN FROM YESTERDAY STILL >8, PATIENT DENIES DIZZINESS OR SOB AT REST. DUE TO SUSPICION OF BLEEDING FOR BEING THE WHOLE PURPOSE OF EGD, AND COLONOSCOPY, HELD LOVENOX. PATIENT EDUCATED AND AGREE TO PLAN. WILL INFORM PROVIDER. PATIENT NOT SUITABLE FOR SKD'S DUE TO WOUNDS ON LEFT LEG, ENCOURAGED MOVMENT, AND INCREASED BED PT. PATIENT AGREEABLE TO PLAN. CONCERNS: 1. INCREASED LEG SWELLING 2. NO PROTONIX OR Hgb IMPROVING MEDS. 3. POSSIBLY CARDIOLOGY, OR DECREASED DOSAGE OF METOPROLOL, BECAUSE THE MEDICATION IS BEING HELD QUITE FREQUENTLY DUE TO SOFTER BLOOD PRESSURES, OR ADJUNCT MEDICATION TO HELP WITH RATE CONTROL WILL INFORM PROVIDER OF SUGGESTIONS. 4.LOVENOX IS ORDERED, BUT WE ARE WORRIED ABOUT POSSIBLE BLEED HELD TODAY.
--- NOTE | 2022-07-05 10:38 | NUR ---
IMPROVED STATUS: PATIENT FLIPPED FROM AFIB TO SR 70-80 AT ABOUT 10:14 OR SOONER. PATIENT NOTICED AND HAS IMPROVED EXERTIONAL DYSPNEA. WILL CONTINUE TO MONITOR BLOOD PRESSURE SBP>100 NO CONCERNS FROM THIS DIESEL ELECTRICIAN AT THIS TIME
--- NOTE | 2022-07-05 15:27 | NUR ---
END OF SHIFT: ONLY CHANGES FROM ASSUMPTION OF CARE ARE, PATIENT IS NOW AND STILL SR 70-80'S BLOOD PRESSURE MAP >80 AND SBP >100. PATIENT STILL DENIES CHEST PAIN/PRESSURE OR SOB AT REST. PATIENT HAS BEEN ELEVATING LEGS PRN AND WOUND VAC IS DRY. PATIENT OVERALL COMPLEXION AND APPEARANCE SEEMED TO HAVE IMPROVED SINCE CONVERTED TO SR, ADDITIONALLY BREATHING SPUNDS IMPROVED WELL. PATIENT DID RECIEVE BREATHING TX FROM RT. PLAN IS TO TRY TO KEEP SR AND THERAPUETIC UNTIL EGD AND COLONOSCOPY ON THURSDAY TO THIS WRITERS' UNDERSTANDING. PATIENT AGREEABLE TO PLAN WILL CONTINUE TO MONITOR UNTIL SHIFT CHANGE.
[2022-07-06 04:14] LABS: Hematocrit 26.1 % (37.0-53.0); Hemoglobin 8.2 g/dL (13.5-17.5); Mean Corpuscular HGB 30.4 pg (26.0-34.0); Mean Corpuscular HGB Conc 31.4 g/dL (31.5-36.5); Mean Corpuscular Volume 97 fL (80-100); Mean Platelet Volume 9.6 fL (9.1-12.4); Platelet Count 403 K/mm3 (150-400); RDW Coefficient Variation 16.9 % (11.7-14.2); RDW Standard Deviation 59.4 fL (35.1-46.3); White Blood Cell Count 6.41 K/mm3 (4.00-11.30)
[2022-07-06 04:33] LABS: Albumin, Blood 2.3 g/dL (3.4-5.0); Anion Gap 5 mmol/L (6-16); Blood Urea Nitrogen 28 mg/dL (8-24); Bun/Creatinine Ratio 28.3 (12.0-20.0); CO2, Blood 30 mmol/L (21-32); Calcium, Blood 8.2 mg/dL (8.5-10.1); Chloride, Blood 109 mmol/L (98-108); Creatinine, Blood 0.99 mg/dL (0.60-1.20); Glomerular Filtration Rate 85 (60-); Glucose, Blood 106 mg/dL (70-99); Phosphorus, Blood 4.2 mg/dL (2.5-4.9); Sodium, Blood 144 mmol/L (136-145)
--- NOTE | 2022-07-06 05:52 | NUR ---
SHIFT SUMMARY PT A&Ox4, CALLS AND COMMUNICATES NEEDS APPROPRIATELY. VSS, BP STABLE, SpO2> 92% RA. AT START OF SHIFT PT WAS IN NSR 70's, AT APPROXIMATELY 2210 PT CONVERTED TO AFIB 110's, PT REMAINS IN AFIB 110's. DENIES CP/PRESSURE. PT IND IN ROOM. PROVIDED CHG BATH WITH CHG WIPES. NO OTHER EVENTS THIS SHIFT, WILL REPORT TO DAY SHIFT RN.
--- NOTE | 2022-07-06 07:30 | NUR ---
INITIAL ASSESSMENT: Patient is awake and sitting up in bed watching TV. He is alert and oriented, x4. He reports 7/10 bilateral knee pain, he is medicated with oxycodone and tylenol. HR, IRRG he is in A-FIb in the 90s-115, po metoprolol given. VSS. Biox 95% on RA. BT+, he states he has been having normal BMs daily, he declined his stool softner. He has a wound vac to bilat knees, CDI with foam dressing. He has a dressing to the right FA, CDI with mefix tape in place. Mepilex dressing to right ankle CDI. Other am meds given at this time. Patient denies other needs at this time. Call light in reach.
--- NOTE | 2022-07-06 12:30 | NUR ---
Update: Patient has been resting comfortably. VSS. No additional needs at this time. Call light in reach.
--- NOTE | 2022-07-06 16:30 | NUR ---
Update: Patient is c/o, "having a tight chest, its hard to breathe." Pt states he has not recieved a breathing tx since last night. RT called for breathing tx. VSS, HR is trending up with pt being anxious. Patient denies other needs at this time, call light in reach. Will reasses after breathing tx.
--- NOTE | 2022-07-06 16:45 | NUR ---
UPdate: Pt states breathing tx worked. He states feels like his cental line is pulling on his neck, the dressing is coming off. Dressing changed, pt states it feels better. He states he just feels like he is ,"going out of his mind stuck in his room." Patient ambulated around the unit, and stated he feels better.
--- NOTE | 2022-07-06 18:20 | NUR ---
Summary: Patient has been alert and oriented t/o the shift. Toward the end of the shift he became anxious. After the patient was able to ambulated around the unit his anxiety subsuided. He has been in A-Fib for the duration of the shift, rate ranging from 90-130, pts metoprolol was increased to 3 times daily from twice daily. LS DIM with insp/exp wheezing and coarse at times, biox has been stable on RA. BT+, pt did have a BM today-he refused his stool softner. Plan to prep for EGD and Colonscopy tomorrow. No other changes this shift. Will report to oncoming RN.
[2022-07-07 05:11] LABS: BASOPHILS ABSOLUTE AUTO 0.02 K/mm3 (0.00-0.23); BASOPHILS PERCENT AUTO 0 % (0-2); EOSINOPHILS ABSOLUTE AUTO 0.24 K/mm3 (0.00-0.68); EOSINOPHILS PERCENT AUTO 4 % (0-6); Hematocrit 26.4 % (37.0-53.0); Hemoglobin 8.4 g/dL (13.5-17.5); IMMATURE GRAN ABSOLUTE AUTO 0.07 K/mm3 (0.00-0.10); IMMATURE GRAN PERCENT AUTO 1 % (0-1); LYMPHOCYTES ABSOLUTE AUTO 1.89 K/mm3 (0.84-5.20); LYMPHOCYTES PERCENT AUTO 27 % (21-46); MONOCYTES ABSOLUTE AUTO 0.39 K/mm3 (0.16-1.47); MONOCYTES PERCENT AUTO 6 % (4-13); Mean Corpuscular HGB 30.7 pg (26.0-34.0); Mean Corpuscular HGB Conc 31.8 g/dL (31.5-36.5); Mean Corpuscular Volume 96 fL (80-100); Mean Platelet Volume 9.6 fL (9.1-12.4); NEUTROPHILS ABSOLUTE AUTO 4.29 K/mm3 (1.96-9.15); NEUTROPHILS PERCENT AUTO 62 % (41-73); NRBC ABSOLUTE 0.02 K/mm3 (0.00-0.02); NRBC Auto 0.3 /100 WBC (0.0-0.2); Platelet Count 392 K/mm3 (150-400); RDW Standard Deviation 59.2 fL (35.1-46.3); Red Blood Cell Count 2.74 M/mm3 (4.30-5.90)
[2022-07-07 05:38] LABS: Bun/Creatinine Ratio 33.4 (12.0-20.0); Calcium, Blood 8.4 mg/dL (8.5-10.1); Creatinine, Blood 0.84 mg/dL (0.60-1.20); Potassium, Blood 4.5 mmol/L (3.5-5.5)
--- NOTE | 2022-07-07 06:03 | NUR ---
SHIFT SUMMARY PT A&Ox4, CALLS AND COMMUNICATES NEEDS APPROPRIATELY. VSS, BP STABLE, Sp02> 92% RA, AFIB 90-115's, DENIES SOB, CP/PRESSURE. PT IND IN ROOM. MANAGED PAIN PER EMAR. PT REMAINED ON CLEAR LIQUID DIET, NOTHING RED THIS SHIFT. IS VERY HOPEFUL THAT SCOPES WILL BE DONE TODAY. NO ACUTE EVENTS SHIFT, WILL REPORT TO DAY SHIFT RN.
--- NOTE | 2022-07-07 13:57 | NUR ---
PT TO DAY SURGERY
--- NOTE | 2022-07-07 14:15 | NUR ---
PT BROUGHT FROM PCU 19 IN [facility]. QUAD LUMEN CVC IN RIGHT IJ. History, Chart, Medications and Allergies reviewed before start of procedure. DUNONEB GIVEN PER DR. MONTIEL
--- NOTE | 2022-07-07 14:29 | NUR ---
DR. MONTIEL AT BS. 5 MG IVP METOPROLOL GIVEN
[2022-07-07 16:15] LABS: Vancomycin, Trough 19.9 ug/mL (5.0-10.0)
--- NOTE | 2022-07-07 18:33 | NUR ---
SHIFT SUMMARY: PT CONTINUES A&Ox4, USING CALL LIGHT APPROPRIATELY. O2 SATS MAINTAINED >92% ON RA, AFIB 100-120, PT DENIES SOB OR CP. CL DIET MAINTAINED UNTIL 0800, THEN PT TRANSITIONED TO ICE CHIPS/WATER AND GOLYTELY, THEN NPO AT 1200. PT MEDICATED W/PRN MEDICATION FOR C/O ANGLE KNEE PAIN, WOUND VACS CONTINUE WNL. WOUND CARE NURSE TO/FROM BEDSIDE FOR WOUND CARE. PT TO/FROM DAY SURGERY FOR SCOPES, RETURNS W/SCOPES NOT COMPLETED D/TO PRESENCE OF FOOD AND STOOL IN GI TRACT. AT THIS TIME, PT CONTINUES ON CL DIET UNTIL PLAN IS ESTABLISHED W/DR LOMBARDO AND PT. PT CURRENTLY RESTING IN BED W/TV ON AND CALL LIGHT WITHIN REACH. WILL CONTINUE TO MONITOR AND TREAT ACCORDINGLY UNTIL CHANGE OF SHIFT.
--- NOTE | 2022-07-07 19:10 | NUR ---
ASSUMED CARE OF PT, BEDSIDE REPORT RECEIVED. PT STATES THAT HE IS DOING WELL AT THIS TIME, PAIN IS RATED 5-6/10 AND WELL CONTROLLED WOULD BE 4/10, WILL MONITOR. HE DENIES NEEDS AT THIS TIME. PLAN OF CARE IS REVIEWED WITH PT, UNDERSTANDING VERBALIZED. CALL LIGHT VERIFIED IN REACH.
--- NOTE | 2022-07-08 06:06 | NUR ---
PT AWAKE FREQUENTLY THIS SHIFT. REPORTS PAIN SCORES BETWEEN 5 AND 8-9/10, ROXYCODONE ADMIN NEAR EVERY 4 HOURS WITH REPORTED IMPROVEMENT IN PAIN HOWEVER PT WOULD CONSIDER 4/10 WELL CONTROLLED. CENTRAL LINE CONTINUES TO RIGHT IJ PT REFUSED PERIPHERAL ACCESS ATTEMPT THIS SHIFT. DID ATTEMPT TO DISCUSS WHETHER OR NOT PT WOULD BE AGREEABLE TO PICC LINE PLACEMENT AT WHICH TIME HE STATED THAT "4 IN THE MORNING IS NOT THE TIME TO DISCUSS IT" CONTINUES IN AFIB THIS SHIFT, RATES RANGE FROM LOW THE HIGH 80S AT REST TO HIGH THE 120S WHEN UP AMBULATING IN ROOM, RATE IS MOST CONSISTENTLY 90S-110, PRESSURES MAINTAINING. WOUNDS CONTINUE WITHOUT CHANGES THIS SHIFT.
--- NOTE | 2022-07-08 18:40 | NUR ---
SHIFT SUMMARY: NO ACUTE CHANGES T/OUT SHIFT. PT CONTINUES A&Ox4, COOPERATIVE W/CARE AND USING CALL LIGHT APPROPRIATELY. O2 SATS MAINTAINED >92% ON RA. AFIB ON MONITOR, RATE 90s-110s, PT DENIES CP. PT MEDICATED OFTEN PER EMAR FOR C/O PAIN TO KNEES. NO WOUND CARE CHANGES THIS SHIFT, EDITOR DEPARTMENT TO RETURN TOMORROW FOR WOUND CARE AND DRESSING CHANGES. CL DIET ORDERS CONTINUE W/PLAN TO TRANSITION TO WATER/ICE CHIPS AT 0300 (07/09/22) THEN NPO AT 1200 (07/09/22). AT THIS TIME, PLAN IS FOR EGD TO TAKE PLACE THE LATER AFTERNOON OF 07/09/22. IF THE EGD IS SUCCESSFULLY COMPLETED, PLAN WILL PROGRESS TO COLONOSCOPY ON 07/10/22. PT AGREEABLE TO PLAN. WILL CONTINUE TO MONITOR AND TREAT ACCORDINGLY.
[2022-07-09 03:54] LABS: Hematocrit 27.3 % (37.0-53.0); Hemoglobin 8.3 g/dL (13.5-17.5); Mean Corpuscular HGB 29.7 pg (26.0-34.0); Mean Corpuscular HGB Conc 30.4 g/dL (31.5-36.5); Mean Corpuscular Volume 98 fL (80-100); Mean Platelet Volume 10.2 fL (9.1-12.4); NRBC ABSOLUTE 0.02 K/mm3 (0.00-0.02); NRBC Auto 0.3 /100 WBC (0.0-0.2); Platelet Count 393 K/mm3 (150-400); RDW Standard Deviation 60.6 fL (35.1-46.3); Red Blood Cell Count 2.79 M/mm3 (4.30-5.90); White Blood Cell Count 6.76 K/mm3 (4.00-11.30)
[2022-07-09 04:18] LABS: Albumin, Blood 2.4 g/dL (3.4-5.0); Anion Gap 3 mmol/L (6-16); Blood Urea Nitrogen 21 mg/dL (8-24); Bun/Creatinine Ratio 24.5 (12.0-20.0); CO2, Blood 30 mmol/L (21-32); Calcium, Blood 8.2 mg/dL (8.5-10.1); Chloride, Blood 109 mmol/L (98-108); Creatinine, Blood 0.86 mg/dL (0.60-1.20); Glomerular Filtration Rate 97 (60-); Glucose, Blood 101 mg/dL (70-99); Phosphorus, Blood 3.6 mg/dL (2.5-4.9); Potassium, Blood 4.4 mmol/L (3.5-5.5); Sodium, Blood 142 mmol/L (136-145)
--- NOTE | 2022-07-09 18:23 | NUR ---
SHIFT SUMMARY PT IS ALERT AND ORIENTED X 4, HE IS PLEASANT AND COOPERATIVE W/ CARE. SPO2 >95% VIA ROOM AIR, HR IS AFIB 100-110'S PER TELE MONITORING, BP STABLE. HE REPORTED PAIN IN BILATERAL KNEES ON WOUNDS, SEE EMAR FOR PAIN MANAGEMENT. PHARMACY ANCILLARY RISHABH CHANGED DRESSINGS ON BILAT KNEES WELL L INNER ANKLE TODAY. HE HAS DENIED FEELINGS OF CHEST PAIN/PRESSURE, HE HAS ALSO DENIED NAUSE. EGD DONE TODAY. PT ARRIVED BACK FROM PROCEDURE APPROX. 1710. HE IS INDEPENDENT IN ROOM AND VOIDS USING BATHROOM. NO OTHER ACUTE CHANGES NOTED. CALL LIGHT IS IN REACH, WILL CONTINUE TO MONITOR UNTIL REPORT GIVEN.
--- NOTE | 2022-07-10 06:26 | NUR ---
PT RESTED WELL OVERNIGHT, PAIN TREATED WITH ROXICODONE X'S 2, LOPRESSOR AT 0600 HELD FOR PARAMETERS
[2022-07-10] MEDS ORDERED: Acerola C500 MG PO (10:21)
[2022-07-10] MEDS ORDERED: B-COMPLEX WITH1 EACH PO (10:22)
[2022-07-10] MEDS ORDERED: METO50 PO (10:23)
[2022-07-10] MEDS ORDERED: FERSU300 PO (10:23)
[2022-07-10] MEDS ORDERED: Promod946 ML PO (10:24)
[2022-07-10] MEDS ORDERED: PANT40 PO (10:24)
--- NOTE | 2022-07-10 13:37 | NUR ---
DISCHARGE NOTE THIS NURSE PROVIDED PT W/ DISCHARGE INSTRUCTIONS INCLUDING FOLLOW UP APPOINTMENTS, INSTRUCTIONS AND EDUCATION REGARDING MEDICATIONS, DIRECTIONS FOR WOUND CARE AND EDUCATION REGARDING DISEASE PROCESSES. PT WAS ALERT AND ORIENTED, HIS VSS. SUPPLIES FOR WOUND CARE WERE ALSO GIVEN TO THE PT. CLERK CASHIER DEV ALSO BROUGHT PT PROTEIN SUPPLEMENTS TO TAKE HOME. CENTRAL LINE WAS REMOVED BY MADDY BENTLEY RN. PT LEFT PCU APPROX. 1330 ESCORTED BY THIS RN.
== END 2022-07-10 13:45 | disposition home or self-care (01) | DRG 854 ==
LOC: ER 00:47 → PCU 04:02 → MEDS 06-26 16:57 → PCU 06-28 01:54
PROVIDERS: Family Medicine; Internal Medicine; Orthopaedic Surgery; Student in an Organized Health Care Education/Training Program; ADMIT Family Medicine
PROC: 3E03329 Introduction of Other Anti-infective into Peripheral Vein, Percutaneous Approach (ICD-10-PCS; 2022-06-20)
PROC: 0M9P0ZZ Drainage of Left Knee Bursa and Ligament, Open Approach (ICD-10-PCS; 2022-06-22)
PROC: 0J9G0ZZ Drainage of Right Lower Arm Subcutaneous Tissue and Fascia, Open Approach (ICD-10-PCS; 2022-06-22)
PROC: 0J9R0ZZ Drainage of Left Foot Subcutaneous Tissue and Fascia, Open Approach (ICD-10-PCS; 2022-06-22)
PROC: 0J9L0ZZ Drainage of Right Upper Leg Subcutaneous Tissue and Fascia, Open Approach (ICD-10-PCS; 2022-06-22)
PROC: 0J9M0ZZ Drainage of Left Upper Leg Subcutaneous Tissue and Fascia, Open Approach (ICD-10-PCS; 2022-06-22)
PROC: 0J9C0ZZ Drainage of Pelvic Region Subcutaneous Tissue and Fascia, Open Approach (ICD-10-PCS; 2022-06-22)
PROC: 0JBD0ZZ Excision of Right Upper Arm Subcutaneous Tissue and Fascia, Open Approach (ICD-10-PCS; 2022-06-22)
PROC: 0JBC0ZZ Excision of Pelvic Region Subcutaneous Tissue and Fascia, Open Approach (ICD-10-PCS; 2022-06-22)
PROC: 0MBP0ZZ Excision of Left Knee Bursa and Ligament, Open Approach (ICD-10-PCS; 2022-06-22)
PROC: 0MBN0ZZ Excision of Right Knee Bursa and Ligament, Open Approach (ICD-10-PCS; 2022-06-22)
PROC: 0M9N0ZZ Drainage of Right Knee Bursa and Ligament, Open Approach (ICD-10-PCS; principal; 2022-06-22 13:00)
PROC: 02HV33Z Insertion of Infusion Device into Superior Vena Cava, Percutaneous Approach (ICD-10-PCS; 2022-06-30)
PROC: 0DJD8ZZ Inspection of Lower Intestinal Tract, Via Natural or Artificial Opening Endoscopic (ICD-10-PCS; 2022-07-07)
PROC: 0DJ08ZZ Inspection of Upper Intestinal Tract, Via Natural or Artificial Opening Endoscopic (ICD-10-PCS; 2022-07-07)
PROC: 0DB38ZX Excision of Lower Esophagus, Via Natural or Artificial Opening Endoscopic, Diagnostic (ICD-10-PCS; 2022-07-09)
PROC: 0DB68ZX Excision of Stomach, Via Natural or Artificial Opening Endoscopic, Diagnostic (ICD-10-PCS; 2022-07-09)
DX: A41.02 Sepsis due to Methicillin resistant Staphylococcus aureus (principal); C15.9 Malignant neoplasm of esophagus, unspecified; E44.1 Mild protein-calorie malnutrition; M00.062 Staphylococcal arthritis, left knee; M00.061 Staphylococcal arthritis, right knee; E87.20 Acidosis, unspecified; L02.413 Cutaneous abscess of right upper limb; L02.214 Cutaneous abscess of groin; L02.416 Cutaneous abscess of left lower limb; L02.415 Cutaneous abscess of right lower limb; L03.116 Cellulitis of left lower limb; K22.10 Ulcer of esophagus without bleeding; D50.9 Iron deficiency anemia, unspecified; R65.20 Severe sepsis without septic shock; I48.0 Paroxysmal atrial fibrillation; K44.9 Diaphragmatic hernia without obstruction or gangrene; F15.10 Other stimulant abuse, uncomplicated; L97.529 Non-pressure chronic ulcer of other part of left foot with unspecified severity; J10.1 Influenza due to other identified influenza virus with other respiratory manifestations; K21.9 Gastro-esophageal reflux disease without esophagitis; F43.10 Post-traumatic stress disorder, unspecified; K52.9 Noninfective gastroenteritis and colitis, unspecified; E55.9 Vitamin D deficiency, unspecified; K22.81 Esophageal polyp; D69.6 Thrombocytopenia, unspecified; F41.9 Anxiety disorder, unspecified; M25.529 Pain in unspecified elbow; D75.839 Thrombocytosis, unspecified; M70.41 Prepatellar bursitis, right knee; M70.42 Prepatellar bursitis, left knee; I95.9 Hypotension, unspecified; G89.29 Other chronic pain; F17.210 Nicotine dependence, cigarettes, uncomplicated; Z88.5 Allergy status to narcotic agent; Z88.0 Allergy status to penicillin; Z88.8 Allergy status to other drugs, medicaments and biological substances; Z79.899 Other long term (current) drug therapy; Z98.890 Other specified postprocedural states; Z79.891 Long term (current) use of opiate analgesic; Z79.2 Long term (current) use of antibiotics; Z68.21 Body mass index [BMI] 21.0-21.9, adult
CPT/HCPCS: 0202U; 0241U; 36415; 36556; 71045; 71046; 73080; 73562-LT; 73562-RT; 73610; 74177; 80048; 80053; 80069; 80202; 81001; 82270; 82728; 83540; 83550; 83605; 83690; 83735; 83880; 84443; 84484; 85014; 85018; 85025; 85027; 87040; 87070; 87075; 87077; 87086; 87147; 87186; 87205; 87389; 88305; 88312; 88342; 93005; 93010; 93306; 94640; 94664; 94760; 94762; 96361; 96365-59; 96366; 96367; 96375; 97161; 97165; 97530; 99285-25; A9270; C1751; C9113; J0282; J0692; J0696; J1100; J1650; J1790; J1885; J2001; J2250; J2370; J2405; J2704; J3010; J3370; J3475; J7030; J7040; J7050; J7120; Q9967

== ENCOUNTER → 2022-09-10 | Outpatient (CLI) | payer OTHER ==
[~2022-09-10] MED LIST changes: +Acerola C500 MG PO; +B-COMPLEX WITH1 EACH PO; +FERSU300 PO; +METO50 PO; +PANT40 PO; +Promod946 ML PO
[2022-09-10 17:01] LABS: BASOPHILS ABSOLUTE AUTO 0.05 K/mm3 (0.00-0.23); BASOPHILS PERCENT AUTO 0 % (0-2); EOSINOPHILS ABSOLUTE AUTO 0.18 K/mm3 (0.00-0.68); EOSINOPHILS PERCENT AUTO 2 % (0-6); Hematocrit 34.6 % (37.0-53.0); Hemoglobin 10.6 g/dL (13.5-17.5); IMMATURE GRAN ABSOLUTE AUTO 0.06 K/mm3 (0.00-0.10); IMMATURE GRAN PERCENT AUTO 1 % (0-1); LYMPHOCYTES ABSOLUTE AUTO 1.59 K/mm3 (0.84-5.20); LYMPHOCYTES PERCENT AUTO 13 % (21-46); MONOCYTES ABSOLUTE AUTO 0.62 K/mm3 (0.16-1.47); MONOCYTES PERCENT AUTO 5 % (4-13); Mean Corpuscular HGB 28.6 pg (26.0-34.0); Mean Corpuscular HGB Conc 30.6 g/dL (31.5-36.5); Mean Corpuscular Volume 94 fL (80-100); Mean Platelet Volume 10.5 fL (9.1-12.4); NEUTROPHILS ABSOLUTE AUTO 9.74 K/mm3 (1.96-9.15); NEUTROPHILS PERCENT AUTO 80 % (41-73); Platelet Count 360 K/mm3 (150-400); RDW Coefficient Variation 16.3 % (11.7-14.2); RDW Standard Deviation 55.8 fL (35.1-46.3); White Blood Cell Count 12.24 K/mm3 (4.00-11.30)
[2022-09-10 17:23] LABS: Albumin, Blood 2.8 g/dL (3.4-5.0); Albumin/Globulin Ratio 0.6 (0.8-1.8); Bilirubin, Total 0.3 mg/dL (0.1-1.0); Bun/Creatinine Ratio 31.3 (12.0-20.0); Calcium, Blood 8.6 mg/dL (8.5-10.1); Creatinine, Blood 0.99 mg/dL (0.60-1.20); Globulin, Blood 4.5 g/dL (2.2-4.0); Potassium, Blood 4.6 mmol/L (3.5-5.5); Thyroid Stimulating Hormone 3.032 uIU/mL (0.360-4.800); Total Protein, Blood 7.3 g/dL (6.4-8.2)
== END | disposition home or self-care (01) ==
LOC: LAB SHORT 16:53 → LAB 16:53
PROVIDERS: Chiropractor
DX: R06.00 Dyspnea, unspecified (principal)
CPT/HCPCS: 80053; 83880; 84443; 84484; 85025; 85379

== ENCOUNTER → 2022-09-11 | Outpatient (CLI) | payer OTHER ==
[2022-09-11 12:22] LABS: BASOPHILS ABSOLUTE AUTO 0.09 K/mm3 (0.00-0.23); BASOPHILS PERCENT AUTO 1 % (0-2); EOSINOPHILS ABSOLUTE AUTO 0.05 K/mm3 (0.00-0.68); EOSINOPHILS PERCENT AUTO 1 % (0-6); Hematocrit 32.5 % (37.0-53.0); IMMATURE GRAN ABSOLUTE AUTO 0.05 K/mm3 (0.00-0.10); IMMATURE GRAN PERCENT AUTO 1 % (0-1); LYMPHOCYTES ABSOLUTE AUTO 1.31 K/mm3 (0.84-5.20); LYMPHOCYTES PERCENT AUTO 13 % (21-46); MONOCYTES ABSOLUTE AUTO 0.66 K/mm3 (0.16-1.47); MONOCYTES PERCENT AUTO 6 % (4-13); Mean Corpuscular HGB 28.3 pg (26.0-34.0); Mean Corpuscular HGB Conc 30.8 g/dL (31.5-36.5); Mean Corpuscular Volume 92 fL (80-100); Mean Platelet Volume 10.6 fL (9.1-12.4); NEUTROPHILS PERCENT AUTO 79 % (41-73); Platelet Count 360 K/mm3 (150-400); RDW Coefficient Variation 16.2 % (11.7-14.2); RDW Standard Deviation 54.6 fL (35.1-46.3); Red Blood Cell Count 3.53 M/mm3 (4.30-5.90); White Blood Cell Count 10.46 K/mm3 (4.00-11.30)
[2022-09-11 12:25] LABS: Bun/Creatinine Ratio 27.7 (12.0-20.0); Calcium, Blood 8.7 mg/dL (8.5-10.1); Creatinine, Blood 1.01 mg/dL (0.60-1.20); Potassium, Blood 4.9 mmol/L (3.5-5.5)
== END | disposition home or self-care (01) ==
LOC: LAB SHORT 12:11
PROVIDERS: Chiropractor
DX: J44.1 Chronic obstructive pulmonary disease with (acute) exacerbation (principal)
CPT/HCPCS: 80048; 85025

== ENCOUNTER → 2022-09-12 | Outpatient (CLI) | payer OTHER ==
[2022-09-12 15:05] LABS: BASOPHILS ABSOLUTE AUTO 0.07 K/mm3 (0.00-0.23); BASOPHILS PERCENT AUTO 1 % (0-2); EOSINOPHILS ABSOLUTE AUTO 0.15 K/mm3 (0.00-0.68); EOSINOPHILS PERCENT AUTO 1 % (0-6); Hematocrit 33.3 % (37.0-53.0); Hemoglobin 10.1 g/dL (13.5-17.5); IMMATURE GRAN ABSOLUTE AUTO 0.07 K/mm3 (0.00-0.10); IMMATURE GRAN PERCENT AUTO 1 % (0-1); LYMPHOCYTES ABSOLUTE AUTO 1.42 K/mm3 (0.84-5.20); LYMPHOCYTES PERCENT AUTO 13 % (21-46); MONOCYTES ABSOLUTE AUTO 0.49 K/mm3 (0.16-1.47); MONOCYTES PERCENT AUTO 5 % (4-13); Mean Corpuscular HGB 28.4 pg (26.0-34.0); Mean Corpuscular HGB Conc 30.3 g/dL (31.5-36.5); Mean Corpuscular Volume 94 fL (80-100); Mean Platelet Volume 10.3 fL (9.1-12.4); NEUTROPHILS ABSOLUTE AUTO 8.78 K/mm3 (1.96-9.15); NEUTROPHILS PERCENT AUTO 80 % (41-73); Platelet Count 366 K/mm3 (150-400); RDW Coefficient Variation 16.5 % (11.7-14.2); RDW Standard Deviation 55.5 fL (35.1-46.3); Red Blood Cell Count 3.56 M/mm3 (4.30-5.90); White Blood Cell Count 10.98 K/mm3 (4.00-11.30)
[2022-09-12 15:08] LABS: Bun/Creatinine Ratio 30.6 (12.0-20.0); Calcium, Blood 8.6 mg/dL (8.5-10.1); Creatinine, Blood 0.98 mg/dL (0.60-1.20); Potassium, Blood 3.9 mmol/L (3.5-5.5)
== END | disposition home or self-care (01) ==
LOC: LAB SHORT 15:00
PROVIDERS: Chiropractor
DX: I48.91 Unspecified atrial fibrillation (principal)
CPT/HCPCS: 80048; 85025

== ENCOUNTER 2023-09-16 23:47 | Inpatient (IN) | payer OTHER ==
[~2023-09-16] VITALS: Ht 165.1 cm; Wt 48.5 kg
[2023-09-17] VITALS (11 sets, daily range): BP systolic 111–138; BP diastolic 87–104
[2023-09-17 00:25] LABS: Calcium, Ionized (POC) 1.14 mmol/L (1.10-1.46); Chloride (POC) 96 mmol/L (98-108); Creatinine (POC) 1.9 mg/dL (0.8-1.3); Glucose (ISTAT POC) 71 mg/dL (70-99); Hemoglobin (POC) 13.3 g/dL (13.5-17.5); Potassium (POC) 4.5 mmol/L (3.5-5.5); Sodium (POC) 137 mmol/L (135-148); Total CO2 (POC) 30 mmol/L (21-32)
[2023-09-17 00:29] LABS: BASOPHILS ABSOLUTE AUTO 0.02 K/mm3 (0.00-0.23); BASOPHILS PERCENT AUTO 0 % (0-2); EOSINOPHILS ABSOLUTE AUTO 0.01 K/mm3 (0.00-0.68); EOSINOPHILS PERCENT AUTO 0 % (0-6); Hematocrit 39.6 % (37.0-53.0); Hemoglobin 13.7 g/dL (13.5-17.5); IMMATURE GRAN ABSOLUTE AUTO 0.06 K/mm3 (0.00-0.10); IMMATURE GRAN PERCENT AUTO 1 % (0-1); LYMPHOCYTES ABSOLUTE AUTO 1.28 K/mm3 (0.84-5.20); LYMPHOCYTES PERCENT AUTO 12 % (21-46); MONOCYTES PERCENT AUTO 4 % (4-13); Mean Corpuscular HGB 32.6 pg (26.0-34.0); Mean Corpuscular HGB Conc 34.6 g/dL (31.5-36.5); Mean Corpuscular Volume 94 fL (80-100); Mean Platelet Volume 11.3 fL (9.1-12.4); NEUTROPHILS ABSOLUTE AUTO 8.64 K/mm3 (1.96-9.15); NEUTROPHILS PERCENT AUTO 83 % (41-73); Platelet Count 133 K/mm3 (150-400); RDW Standard Deviation 52.3 fL (35.1-46.3); White Blood Cell Count 10.41 K/mm3 (4.00-11.30)
[2023-09-17 00:48] LABS: Alanine Aminotransfer (ALT/SGP 503 U/L (12-78); Albumin, Blood 3.1 g/dL (3.4-5.0); Alk Phos 297 U/L (50-136); Anion Gap 7 mmol/L (6-16); Aspartate Aminotrans (AST/SGOT 384 U/L (12-37); Bilirubin, Total 0.8 mg/dL (0.1-1.0); Blood Urea Nitrogen 108 mg/dL (8-24); Bun/Creatinine Ratio 76.1 (12.0-20.0); CO2, Blood 31 mmol/L (21-32); Calcium, Blood 8.7 mg/dL (8.5-10.1); Chloride, Blood 104 mmol/L (98-108); Creatinine, Blood 1.42 mg/dL (0.60-1.20); Ethanol (Alcohol), Blood, Med <3 mg/dL; Globulin, Blood 3.2 g/dL (2.2-4.0); Glomerular Filtration Rate 55 (60-); Glucose, Blood 75 mg/dL (70-99); Potassium, Blood 4.6 mmol/L (3.5-5.5); Sodium, Blood 142 mmol/L (136-145); Total Protein, Blood 6.3 g/dL (6.4-8.2)
[2023-09-17 01:11] LABS: Magnesium, Blood 2.4 mg/dL (1.6-2.4)
[2023-09-17 01:53] LABS: U Amphetamine Screen DETECTED; U Methamphetamine Screen DETECTED
[2023-09-17 01:54] LABS: U Barbituate Screen Not Detected; U Benzodiazapine Screen Not Detected; U Buprenorphine Screen Not Detected; U Cannabinoids Screen Not Detected; U Cocaine Screen Not Detected; U Methadone Screen Not Detected; U Opiates Screen Not Detected; U Oxycodone Screen Not Detected; U Phencyclidine Screen Not Detected
[2023-09-17 02:21] LABS: Influenza A, PCR NEGATIVE (NEGATIVE); Influenza B, PCR NEGATIVE (NEGATIVE); Resp Syncytial Virus, PCR NEGATIVE (NEGATIVE); SARS-Cov-2 (COVID-19) PCR, MMC NEGATIVE (NEGATIVE)
[2023-09-17 06:13] LABS: BASOPHILS PERCENT AUTO 0 % (0-2); EOSINOPHILS ABSOLUTE AUTO 0.01 K/mm3 (0.00-0.68); EOSINOPHILS PERCENT AUTO 0 % (0-6); Hematocrit 35.2 % (37.0-53.0); IMMATURE GRAN ABSOLUTE AUTO 0.06 K/mm3 (0.00-0.10); IMMATURE GRAN PERCENT AUTO 1 % (0-1); LYMPHOCYTES ABSOLUTE AUTO 1.02 K/mm3 (0.84-5.20); LYMPHOCYTES PERCENT AUTO 11 % (21-46); MONOCYTES PERCENT AUTO 3 % (4-13); Mean Corpuscular HGB 32.4 pg (26.0-34.0); Mean Corpuscular HGB Conc 34.1 g/dL (31.5-36.5); Mean Corpuscular Volume 95 fL (80-100); Mean Platelet Volume 11.9 fL (9.1-12.4); NEUTROPHILS ABSOLUTE AUTO 8.26 K/mm3 (1.96-9.15); NEUTROPHILS PERCENT AUTO 86 % (41-73); Platelet Count 105 K/mm3 (150-400); RDW Standard Deviation 52.8 fL (35.1-46.3); White Blood Cell Count 9.65 K/mm3 (4.00-11.30)
[2023-09-17 06:34] LABS: Albumin, Blood 2.6 g/dL (3.4-5.0); Bilirubin, Total 0.8 mg/dL (0.1-1.0); Bun/Creatinine Ratio 77.9 (12.0-20.0); Creatinine, Blood 1.31 mg/dL (0.60-1.20); Globulin, Blood 2.7 g/dL (2.2-4.0); Potassium, Blood 4.3 mmol/L (3.5-5.5); Total Protein, Blood 5.3 g/dL (6.4-8.2)
[2023-09-17 07:20] LABS: Anti-Xa UFH, PHA Monitoring <0.10 IU/mL; International Normalized Ratio 0.99; Prothrombin Time Results 10.4 Sec (9.7-11.5)
--- NOTE | 2023-09-17 07:24 | NUR ---
ADMISSION NOTE PATIENT ARRIVED TO PCU 11 VIA STRETCHER, SLIDE TRANSFER COMPLETED PATIENT IS CACHECTIC AND WEAK. PATIENT IS ALERT AND ORIENTED X4, WITHDRAWN, AND REFUSING TO ANSWER ADMISSION QUESTIONS. PATIENT HAS SCATTERED BRUSING AND ABRASIONS, ULCERATION TO RIGHT ANKLE, BLANCHABLE REDNESS ON COCCYX. PATIENT'S HANDS AND FEET ARE MODDLED WITH >3 SECOND CAP REFILL ON FEET. PATIENT ON ROOM AIR. VITAL SIGNS STABLE. WILL CONTINUE TO MONITOR. CALL LIGHT WITHIN REACH.
--- NOTE | 2023-09-17 12:32 | NUR ---
AM NOTE: PATIENT ADMIT FROM ED. ALERT AND ORIENTED X3-4. SPEECH DIFFICULT TO UNDERSTAND, PATIENT MUMBLING AND VERY SOFT SPOKEN. MISSING/BROKEN TEETH. PERRLA. OVERALL WEAK. MOVING ALL EXTREMITIES WNL. ABLE TO TURN SELF IN BED. TELE SHOWING SB/SR WITH HR 60-70'S. BP STABLE. DENIES CHEST PAIN/PRESSURE/PALPITATIONS. PPP. HANDS AND FEET PURPLE/RED AND COOL TO TOUCH. ON ROOM AIR SATING ABOVE 95%. EVEN AND UNLABORED RESPIRATIONS. COARSE THROUGHOUT WITH DIMINISHED LUNG SOUNDS ON RIGHT SIDE. HEPARIN GTT INFUSING PER EMAR. DENIES SOB/COUGH. BOWEL TONES PRESENT. NPO AT THIS TIME FOR MCGLADE CONSULT/INTERVENTION. PATIENT BLADDER DISTENDED AND ONLY ABLE TO VOID VERY SMALL AMOUNTS. BLADDER SCAN READING OVER 999ML. STRAIGHT CATH ATTEMPT BY ED AND WALL SCRAPER WITH NO SUCCESS. MCGLADE CONSULT FOR POSSIBLE SUPRAPUBIC CATH. DISCOMFORT WITH BLADDER PALPATION. ATTENDS IN PLACE. SKIN OVERALL FRAGILE WITH SCATTERED BRUISING/SCABS. PRESSURE ULCER TO LEFT ANKLE AND REDNESS TO COCCYX THAT IS BLANABLE. SEE CHART PHOTOS. EGG CRATE PLACED ON BED FOR EXTRA PADDING. PATIENT SLEEPING IN BETWEEN CARES. DENIES NEEDS AT THIS TIME. CALL LIGHT IN REACH. HEPARIN GTT INFUSING PER EMAR.
--- NOTE | 2023-09-17 15:13 | NUR ---
PATIENT TO HEART CENTER AT THIS TIME. HEPARIN PLACED ON STANBY AND PHARMACY UPDATED.
--- NOTE | 2023-09-17 16:50 | NUR ---
PATIENT BACK FROM SUPRAPUBIC CATH AT 1600. VITAL SIGNS STABLE, POST PROCEDURE VITALS IN PROGRESS. PATIENT SLEEPY BUT WAKES TO TOUCH. HR 50-60'S. SATING 100% ON ROOM AIR. SBP 120'S. RR 14-16. DENIES PAIN. SUPRAPUBIC CATH PUTTING OUT CLEAR/BLOOD TINGED URINE. SEE I/O CHARTING. HEPARIN RESTARTED PER PHARMACY ORDERS. CALL LIGHT IN REACH. WILL ATTEMPT WATER/FOOD WHEN PATIENT IS MORE ALERT/SITTING UP.
--- NOTE | 2023-09-17 22:09 | NUR ---
HEPARIN DRIP ON SB FOR ONE HOUR PER PHARMACY, WILL RESTART AT 2300
[2023-09-18 04:34] VITALS: BP 120/94
--- NOTE | 2023-09-18 04:53 | NUR ---
SHIFT SUMMARY PATIENT RESPONDS TO VERBAL STIMULI, ORIENTED X 3-4. 02 SATS 94% ON 2L VIA NC WHILE ASLEEP. HR SB 50s. BP STABLE. SUPRAPUBIC WITH LARGE AMOUNT OF RED TINGED OUTPUT THIS SHIFT. HEPARIN DRIP REMAINS INF. PATIENT ABLE TO LIFT HIPS AND TURN, HELP WITH REPOSITIONING THROUGH THE NIGHT. CALL LIGHT IN REACH
[2023-09-18 05:05] LABS: BASOPHILS PERCENT AUTO 0 % (0-2); EOSINOPHILS ABSOLUTE AUTO 0.01 K/mm3 (0.00-0.68); EOSINOPHILS PERCENT AUTO 0 % (0-6); Hematocrit 35.5 % (37.0-53.0); Hemoglobin 12.2 g/dL (13.5-17.5); IMMATURE GRAN ABSOLUTE AUTO 0.03 K/mm3 (0.00-0.10); IMMATURE GRAN PERCENT AUTO 0 % (0-1); LYMPHOCYTES ABSOLUTE AUTO 1.43 K/mm3 (0.84-5.20); LYMPHOCYTES PERCENT AUTO 21 % (21-46); MONOCYTES ABSOLUTE AUTO 0.27 K/mm3 (0.16-1.47); MONOCYTES PERCENT AUTO 4 % (4-13); Mean Corpuscular HGB 32.4 pg (26.0-34.0); Mean Corpuscular HGB Conc 34.4 g/dL (31.5-36.5); Mean Corpuscular Volume 94 fL (80-100); Mean Platelet Volume 11.3 fL (9.1-12.4); NEUTROPHILS ABSOLUTE AUTO 4.97 K/mm3 (1.96-9.15); NEUTROPHILS PERCENT AUTO 74 % (41-73); Platelet Count 99 K/mm3 (150-400); RDW Coefficient Variation 15.2 % (11.7-14.2); RDW Standard Deviation 52.8 fL (35.1-46.3); Red Blood Cell Count 3.77 M/mm3 (4.30-5.90); White Blood Cell Count 6.71 K/mm3 (4.00-11.30)
[2023-09-18 05:32] LABS: Albumin, Blood 2.7 g/dL (3.4-5.0); Bilirubin, Total 0.9 mg/dL (0.1-1.0); Bun/Creatinine Ratio 76.4 (12.0-20.0); Calcium, Blood 8.2 mg/dL (8.5-10.1); Creatinine, Blood 1.23 mg/dL (0.60-1.20); Globulin, Blood 2.7 g/dL (2.2-4.0); Potassium, Blood 3.9 mmol/L (3.5-5.5); Total Protein, Blood 5.4 g/dL (6.4-8.2)
[2023-09-18 07:23] VITALS: BP 117/97
--- NOTE | 2023-09-18 07:31 | NUR ---
AM NOTE THIS RN ASSUMED CARE AT 0700. VITAL SIGNS STABLE. TELE SINUSBRADY 50S. SPO2 >95% ON 1L NC. PATIENT IS ALERT AND ORIENTRED X4. PERRLA. PATIENT IS ABLE TO MAKE NEEDS KNOWN. PATIENT REPORTS NO CHEST PAIN/PRESSURE. PATIENT REPORTS NO PAIN OR SHORTNESS OF BREATH. SEE SHIFT ASSESSMENT FOR FURTHER DETAILS. PATIENT HAS SP GILMORE DRAINING RED OUTPUT. PATIENT HAS HEPARIN DRIP INFUSING AT 9U/KG/HR. PATIENT HAS ROOM ON MEDICAL FLOOR, ROOM 328 AND WILL GIVE REPORT TO NURSE.
--- NOTE | 2023-09-18 07:55 | NUR ---
transfer this rn gave report to medical floor rn.
--- NOTE | 2023-09-18 08:10 | NUR ---
PATIENT TRANSFERRED FROM PCU 11 TO ROOM 325. REPORT RECEIVED FROM DAVID ORO. HEPARIN GTT HAS BEEN D/C'D AND XARELTO ORDERED. MULTIPLE SKIN ISSUES, 2 RN SKIN CHECK DONE WITH VELASQUEZ VILLARREAL RN. MULTIPLE SKIN ISSUES, DRESSINING REMAIN C/D/I. PICTURES ON CHART AND WERE TAKEN YESTERDAY, . PATIENT ORIENTED TO ROOM AND USE OF CALL LIGHT. S/P CATH DRAINING TO GRAVITY WITH DARK CARLOS MANUEL URINE OUTPUT. SET UP FOR BREAKFAST AND PATIENT DENIES ANY FURTHER NEEDS AT THIS TIME. CALL LIGHT WITHIN REACH.
[2023-09-18 11:38] LABS: Percent Saturation 83.3 % (20.0-50.0)
[2023-09-18 15:42] VITALS: BP 98/82
[2023-09-18 16:18] VITALS: BP 104/81
--- NOTE | 2023-09-18 18:14 | NUR ---
PATIENT TRANSFERRED THIS AM FROM PCU. OVERALL DOING WELL TODAY. WORKED WITH PT AND WAS ABLE TO SIT AT THE SIDE OF THE BED. S/P CATH DRAINING TEA COLORED URINE. HEPARIN GTT D/C'D TODAY AND PATIENT SWITCHED TO XARELTO. VSS, ON RA. PATIENT IS A/OX4 AND ABLE TO MAKE NEEDS KNOWN. TOLERATING REGULAR DIET. MUTIPLE WOUNDS IS VARIOUS STAGES OF HEALING, PICS ON CHART. PLAN IS SNF AT D/C.
[2023-09-18 19:14] VITALS: BP 94/71
--- NOTE | 2023-09-19 03:51 | NUR ---
SHIFT SUMMARY MR MORALES APPEARS TO HAVE SLEPT WELL OVERNIGHT. HE IS TURNING HIMSELF IN BED. HE HAS SORENESS TO BOTH FEET BUT DID NOT REQUIRE PAIN MEDICATION. SUPRAPUBIC CATHETER STILL HAS SLIGHTLY BLOODY UOP, REMAINING UNCHANGED IN APPEARANCE. ON TELEMETRY IN , NO CALLS FROM BOTTOM LIQUOR ATTENDANT. HE DID GET UP LAST EVENING TO THE BEDSIDE COMMODE WITH 1 PERSON ASSISTANCE AND WAS ABLE TO STAND INDEPENDENTLY WITH THE WALKER. BED LOW, CALL LIGHT IN REACH.
[2023-09-19 04:44] VITALS: BP 89/68
[2023-09-19 05:09] VITALS: BP 104/60
[2023-09-19 05:21] LABS: Bun/Creatinine Ratio 74.3 (12.0-20.0); Calcium, Blood 8.1 mg/dL (8.5-10.1); Creatinine, Blood 0.83 mg/dL (0.60-1.20)
--- NOTE | 2023-09-19 05:59 | NUR ---
MD CALL CALL TO DR RIVERA REGARDING POTASSIUM LAB RESULT. TELEPHONE ORDER FOR POTASSIUM CHLORIDE 40MEQ PO X1. READ BACK DONE AND ORDER ENTERED INTO [employer].
[2023-09-19 07:06] VITALS: BP 106/81
[2023-09-19 16:51] VITALS: BP 120/98
[2023-09-20 03:46] VITALS: BP 114/87
[2023-09-20 04:43] LABS: Hematocrit 27.6 % (37.0-53.0); Hemoglobin 9.8 g/dL (13.5-17.5); Mean Corpuscular HGB 32.6 pg (26.0-34.0); Mean Corpuscular HGB Conc 35.5 g/dL (31.5-36.5); Mean Corpuscular Volume 92 fL (80-100); Mean Platelet Volume 10.9 fL (9.1-12.4); Platelet Count 58 K/mm3 (150-400); RDW Coefficient Variation 14.6 % (11.7-14.2); Red Blood Cell Count 3.01 M/mm3 (4.30-5.90); White Blood Cell Count 8.05 K/mm3 (4.00-11.30)
[2023-09-20 05:01] LABS: Bun/Creatinine Ratio 48.7 (12.0-20.0); Creatinine, Blood 0.6 mg/dL (0.60-1.20); Potassium, Blood 3.1 mmol/L (3.5-5.5)
--- NOTE | 2023-09-20 06:01 | NUR ---
SHIFT SUMMERY. PT RESTING IN BED, PT GIVEN HS SNACK BEFORE BEDTIME. PT RESTED MOST OF THE NIGHT . THSI AM PT BLEEDING FROM SUPERPUBIC AREA, CLEANED UP PT AND PLACED PRESURE DRG TO AREA, SM AMOUNT OF BLOOS OZING OUT OF SITE. PT REQUESTED SOME JUICE AND DRANK IT ALL THEN WENT BACK TO SLEEP. BED ALRM CARDROOM ATTENDANT LIGHT IN REACH.
[2023-09-20 07:25] VITALS: BP 101/85
[2023-09-20 09:26] VITALS: BP 117/86
[2023-09-20 10:03] VITALS: BP 117/86
--- NOTE | 2023-09-20 10:24 | NUR ---
POST FALL THE PT WAS UP FROM THE BED AROUND 0930, BED ALARM WAS SOUNDING OFF. WHEN ENTERING THE ROOM IT WAS NOTICED THAT THE PT WAS JUST ENTERING THE BATHROOM AND WAS TRYING TO CLOSE THE DOOR. A CHEUNG PAD WAS ATTATCHED TO THE PT'S SUPRA PUBIC CATHETER AND WAS DRAGGING BEHIND THE PATIENT CAUSING HIM TO BECOME UNBALANCED AND FALLING TO THE BATHROOM FLOOR. PER THE PATIENT HE HIT HIS HEAD ON THE SINK HE WAS FALLING. VSS. PT WAS ABLE TO STAND WITH MINIMAL ASSISTANCE. PT REPORTED NO HEADACHE AT THIS TIME. NO BLEEDING WAS NOTICED FROM THE HEAD NO SWELLING NOTICED AT THAT TIME. THIS ASSOCIATE PROFESSOR OF ARCHAEOLOGY AND OLEGARIO SLATE MIXER NOTIFIED WELL THE NURSING STAINED GLASS ARTIST AND DR. MAJOR. THE STEAM GENERATING POWERPLANT MECHANIC AND PRIMARY RN DID NOT RECIEVE THE ALARM VIA [facility] BECAUSE THE CORD FOR THAT COMMUNICATION WAS NOT PLUGGED IN. AFTER THE FALL THE CORD WAS ATTEMPTED TO BE PLUGGED IN BUT MALFUNCTIONED CAUSING THE CALL SYSTEM TO CONTINUOSLY GO OFF
[2023-09-20 15:57] VITALS: BP 118/87
--- NOTE | 2023-09-20 17:43 | NUR ---
SHIFT SUMMARY PT A&OX4, VSS, AMB W/ ASSIST, TOLERATING PO, VOIDING, AND DENIED PAIN. PT HAS SUPRAPUBIC CATHETER IN PLACE W/ DRESSING THAT IS C/D/I. PT HAD FALL THIS SHIFT W/ NO INJURY OR COMPLAINTS. PT HAS YELLOW GOWN ON, BED ALARM ON, AND PT KNOWS TO CALL. SEE FALL NOTES. NO OTHER ACUTE CHANGES THIS SHIFT. CALL LIGHT WITHIN REACH AND PT ABLE TO MAKE NEEDS KNOWN.
[2023-09-20 19:49] VITALS: BP 107/74
[2023-09-21 03:21] VITALS: BP 109/73
--- NOTE | 2023-09-21 04:13 | NUR ---
SHIFT SUMMARY ELLEN WAS ALERT AND FULLY ORIENTED ON ASSESSMENT. PT DENIES SOB, C/P/PRESSURE, AND NAUSEA. PT W/ NO NEW COMPLAINTS AND NO ACUTE EVENTS TONIGHT. SUPRAPUBIC CATHETER DRAINING PINKISH YELLOW URINE. DRESSING AROUND SUPRAPUBIC CATHETER SITE, AND ON ANKLE WOUND ARE C/D/I. PT RESTING IN BED AT A LOW POSITION WITH CALL LIGHT IN REACH.
[2023-09-21 05:50] LABS: Bun/Creatinine Ratio 38.3 (12.0-20.0); Calcium, Blood 7.6 mg/dL (8.5-10.1); Creatinine, Blood 0.6 mg/dL (0.60-1.20); Potassium, Blood 3.3 mmol/L (3.5-5.5)
[2023-09-21 07:49] LABS: BASOPHILS ABSOLUTE AUTO 0.02 K/mm3 (0.00-0.23); BASOPHILS PERCENT AUTO 0 % (0-2); EOSINOPHILS ABSOLUTE AUTO 0.01 K/mm3 (0.00-0.68); EOSINOPHILS PERCENT AUTO 0 % (0-6); Hematocrit 25.5 % (37.0-53.0); IMMATURE GRAN ABSOLUTE AUTO 0.04 K/mm3 (0.00-0.10); IMMATURE GRAN PERCENT AUTO 1 % (0-1); LYMPHOCYTES PERCENT AUTO 9 % (21-46); MONOCYTES ABSOLUTE AUTO 0.25 K/mm3 (0.16-1.47); MONOCYTES PERCENT AUTO 4 % (4-13); Mean Corpuscular HGB Conc 35.3 g/dL (31.5-36.5); Mean Corpuscular Volume 93 fL (80-100); Mean Platelet Volume 12.1 fL (9.1-12.4); NEUTROPHILS ABSOLUTE AUTO 6.12 K/mm3 (1.96-9.15); NEUTROPHILS PERCENT AUTO 87 % (41-73); Platelet Count 56 K/mm3 (150-400); RDW Coefficient Variation 14.4 % (11.7-14.2); RDW Standard Deviation 49.3 fL (35.1-46.3); Red Blood Cell Count 2.73 M/mm3 (4.30-5.90); White Blood Cell Count 7.04 K/mm3 (4.00-11.30)
[2023-09-21 15:23] VITALS: BP 114/87
--- NOTE | 2023-09-21 15:42 | NUR ---
NOTE PT RESTING. AMBULATED AROUND UNIT WITH 1 ASIST, FWW AND GAIT BELT. GAIT STEADY. DENIED DISCOMFORT. ATE A SNACK SITTING INT HE CHAIT AR BEDSIDE. BED/CHAIR ALARM. LARGE BM. SUPRA PUBIC CATHETER DRAINING CLEAR, CARLOS MANUEL URINE. NO CLOTS NOTED. PT SKIN WITH MULTIPLE ABRASIONS, BUMPS AND BRUISES. GOOD APPETITE. CARE ONGOING.
--- NOTE | 2023-09-21 19:10 | NUR ---
RECEIVED REPORT FROM JULISSA RN. PT LYING IN BED WITH EYES CLOSED. RESP E/U ON RA. BED ALARM ON. WILL PROVIDE CARE T/O SHIFT. CALL LT IN REACH.
[2023-09-21 19:18] VITALS: BP 110/85
--- NOTE | 2023-09-21 22:00 | NUR ---
PT RESTING QUIETLY. NO NEEDS AT THIS TIME. BED ALARM ON. CALL LT IN REACH.
--- NOTE | 2023-09-22 00:19 | NUR ---
PT RESTING QUIETLY. CALL LT IN REACH. BED ALARM ON.
--- NOTE | 2023-09-22 01:00 | NUR ---
PT AWAKE AND WATCHING TV. NO NEEDS AT THIS TIME. CARLOS MANUEL COLORED URINE IN SUPRAPUBIC CATH BAG. NO NEEDS AT THIS TIME. CALL LT IN REACH.
[2023-09-22 02:33] VITALS: BP 127/96
--- NOTE | 2023-09-22 04:15 | NUR ---
PT RESTING QUIETLY. CALL LT IN REACH. BED ALARM ON.
[2023-09-22 04:40] LABS: BASOPHILS ABSOLUTE AUTO 0.02 K/mm3 (0.00-0.23); BASOPHILS PERCENT AUTO 0 % (0-2); EOSINOPHILS ABSOLUTE AUTO 0.02 K/mm3 (0.00-0.68); EOSINOPHILS PERCENT AUTO 0 % (0-6); Hemoglobin 8.7 g/dL (13.5-17.5); IMMATURE GRAN ABSOLUTE AUTO 0.08 K/mm3 (0.00-0.10); IMMATURE GRAN PERCENT AUTO 1 % (0-1); LYMPHOCYTES ABSOLUTE AUTO 0.72 K/mm3 (0.84-5.20); LYMPHOCYTES PERCENT AUTO 12 % (21-46); MONOCYTES PERCENT AUTO 5 % (4-13); Mean Corpuscular HGB 32.5 pg (26.0-34.0); Mean Corpuscular HGB Conc 34.8 g/dL (31.5-36.5); Mean Corpuscular Volume 93 fL (80-100); Mean Platelet Volume 10.9 fL (9.1-12.4); NEUTROPHILS ABSOLUTE AUTO 4.69 K/mm3 (1.96-9.15); NEUTROPHILS PERCENT AUTO 81 % (41-73); Platelet Count 65 K/mm3 (150-400); RDW Standard Deviation 47.8 fL (35.1-46.3); Red Blood Cell Count 2.68 M/mm3 (4.30-5.90); White Blood Cell Count 5.83 K/mm3 (4.00-11.30)
[2023-09-22 05:11] LABS: Bun/Creatinine Ratio 47.3 (12.0-20.0); Calcium, Blood 7.7 mg/dL (8.5-10.1); Creatinine, Blood 0.51 mg/dL (0.60-1.20); Potassium, Blood 3.7 mmol/L (3.5-5.5)
[2023-09-22 08:12] VITALS: BP 125/91
[2023-09-22 15:39] VITALS: BP 118/62
--- NOTE | 2023-09-22 16:57 | NUR ---
MET WITH MAO AND DISCUSSED HIS PLAN OF CARE. HE HAS HAD A SIGNIFICANT WEIGHT LOSS OVER THE LAST YEAR OVER 90LBS. HE HAS BARRETS ESO, AND SAW DR. ENG BUT DID NOT FOLLOW UP. I DISCUSSED THE IMPORTANCE OF ESTABLISHING A PRIMARY CARE PROVIDER AND FOLLOWING UP WITH CARE. WE DISCUSSED THE IMPORTANCE OF THIS SINCE HE IS VERY THIN AT THIS POINT AND IF HE CONTINUES TO LOOSE WEIGHT AT THIS RATE HIS PROGNOSIS IS NOT GOOD. HE AGREES THAT HE CANNOT CONTINUE DOWN THAT PATH AND REALIZES THAT HE NEEDS TO ESTABLISH CARE. HE IS INBETWEEN HOUSING AT THIS TIME, HE WILL BE STAYING WITH A FRIEND WHEN HE LEAVES HERE. HE IS WORKING ON GETTING HIS FPC SET UP SO THAT HE HAS AN INCOME.
--- NOTE | 2023-09-22 17:39 | NUR ---
NOTE PT ALERT ORIENTED. VSS. UP WITH STAFF AND FWW. TOLERATING WELL. SUPRA PUBIC CATHETER PATENT DRAINING YELLOW, CLEAR URINE. NO CLOTS OR REID COLOR NOTED. TAUGHT PT HOW TO USE LEG STRAP AND HOW TO EMPTY IT. PT SHOWERED TODAY. SHOWED HIM HOW TOT CHANGE THE DRESSING AROUND THE TUBE. HE HAS NOT RETURNED DEMOSTRATED YET. DENIED DISCOMFORT. DIFFICULTY TO QUANTIFY FOOD EATEN D/T PT MIXING AND LOOSING THE FOOD ON HIS BED/FLOOR/POCKETS. HE DOES AGREE THAT HE HAS LOST A LARGE AMOUNT OF WEIGHT IN THE LAST YEAR. HE DOESN'T KNOW WHY. HAS A HX OF BARRETTS ESO. HE DENIED HAVING CHEWING OR SWALLOWING DIFFICULTY. CARE ONGOING.
[2023-09-22 19:53] VITALS: BP 102/68
--- NOTE | 2023-09-23 00:58 | NUR ---
SHIFT SUMMARY PT A&O X 4, PT AMBULATING FROM CHAIR TO BED WITH STAND BY ASSISTANCE. SUPRABUBIC CATHETER DRAINING WELL WITH CARLOS MANUEL URINE, SITE CLEAN. PT SHARED CONCERNS OVER A WOUND ON HIS L INNER ANKLE THAT HE STATES HAS BEEN THERE FOR 4 YEARS. PT WAS INSTRUCTED TO DISCUSS THIS WOUND WITH HIS DOCTOR TODAY WHEN HE COMES TO SEE HIM. PT PLEASANT AND SLEPT MOST OF THE NIGHT. NO ACUTE CHANGES THIS SHIFT. 09/23/23 DONELL GTZ RN
[2023-09-23 03:52] VITALS: BP 116/82
[2023-09-23 06:59] LABS: BASOPHILS ABSOLUTE AUTO 0.02 K/mm3 (0.00-0.23); BASOPHILS PERCENT AUTO 0 % (0-2); EOSINOPHILS ABSOLUTE AUTO 0.08 K/mm3 (0.00-0.68); EOSINOPHILS PERCENT AUTO 1 % (0-6); Hematocrit 24.6 % (37.0-53.0); Hemoglobin 8.6 g/dL (13.5-17.5); IMMATURE GRAN ABSOLUTE AUTO 0.12 K/mm3 (0.00-0.10); IMMATURE GRAN PERCENT AUTO 2 % (0-1); LYMPHOCYTES ABSOLUTE AUTO 0.65 K/mm3 (0.84-5.20); LYMPHOCYTES PERCENT AUTO 10 % (21-46); MONOCYTES ABSOLUTE AUTO 0.41 K/mm3 (0.16-1.47); MONOCYTES PERCENT AUTO 6 % (4-13); Mean Corpuscular HGB 32.1 pg (26.0-34.0); Mean Corpuscular Volume 92 fL (80-100); Mean Platelet Volume 10.5 fL (9.1-12.4); NEUTROPHILS ABSOLUTE AUTO 5.43 K/mm3 (1.96-9.15); NEUTROPHILS PERCENT AUTO 81 % (41-73); Platelet Count 106 K/mm3 (150-400); RDW Coefficient Variation 14.1 % (11.7-14.2); RDW Standard Deviation 47.9 fL (35.1-46.3); Red Blood Cell Count 2.68 M/mm3 (4.30-5.90); White Blood Cell Count 6.71 K/mm3 (4.00-11.30)
[2023-09-23 07:42] LABS: Bun/Creatinine Ratio 41.3 (12.0-20.0); Calcium, Blood 7.3 mg/dL (8.5-10.1); Creatinine, Blood 0.48 mg/dL (0.60-1.20); Percent Saturation 52.1 % (20.0-50.0); Potassium, Blood 3.6 mmol/L (3.5-5.5)
[2023-09-23 07:46] VITALS: BP 114/94
[2023-09-23 15:51] VITALS: BP 92/70
--- NOTE | 2023-09-23 18:06 | NUR ---
SUMMARY- PT A/O X4. SBA TO CHAIR. REFUSED TO GET UP IN [facility] FOR MEALS, BUT GOT UP FOR DINNER. TOLERATING FOOD AND FLUIDS. PLAN FOR DIET CONSULT AND WOUND CONSULT. LIKELY DC TOMORROW, ALTHOUGH PT STATES HE IS HOMELESS. WILL REPORT TO NATTY RN
[2023-09-23 19:58] VITALS: BP 101/73
[2023-09-24 02:34] VITALS: BP 103/73
--- NOTE | 2023-09-24 04:48 | NUR ---
SHIFT SUMMARY: PT IS ALERT AND ORIENTED. PT IS CALM AND COOPERATIVE WITH CARE. PT CALLS APPROPRIATELY. PT IS A MIN ASSIST, NOT OUT OF BED OVERNIGHT. PT DENIES PAIN, NAUSEA, VOMITING, AND SOB. SP CATH INTACT AND DRAINING. POSSIBLE DC TODAY. NO ACUTE CHANGES OR COMPLICATIONS THIS SHIFT. BED IN LOW POSITION, CALL LIGHT WITHIN REACH. WILL CONTINUE TO MONITOR.
[2023-09-24 06:08] LABS: BASOPHILS ABSOLUTE AUTO 0.02 K/mm3 (0.00-0.23); BASOPHILS PERCENT AUTO 0 % (0-2); EOSINOPHILS ABSOLUTE AUTO 0.05 K/mm3 (0.00-0.68); EOSINOPHILS PERCENT AUTO 1 % (0-6); Hematocrit 24.2 % (37.0-53.0); Hemoglobin 8.6 g/dL (13.5-17.5); IMMATURE GRAN ABSOLUTE AUTO 0.12 K/mm3 (0.00-0.10); IMMATURE GRAN PERCENT AUTO 2 % (0-1); LYMPHOCYTES ABSOLUTE AUTO 0.83 K/mm3 (0.84-5.20); LYMPHOCYTES PERCENT AUTO 10 % (21-46); MONOCYTES ABSOLUTE AUTO 0.53 K/mm3 (0.16-1.47); MONOCYTES PERCENT AUTO 7 % (4-13); Mean Corpuscular HGB 32.8 pg (26.0-34.0); Mean Corpuscular HGB Conc 35.5 g/dL (31.5-36.5); Mean Corpuscular Volume 92 fL (80-100); Mean Platelet Volume 10.6 fL (9.1-12.4); NEUTROPHILS ABSOLUTE AUTO 6.54 K/mm3 (1.96-9.15); NEUTROPHILS PERCENT AUTO 81 % (41-73); Platelet Count 146 K/mm3 (150-400); RDW Coefficient Variation 14.1 % (11.7-14.2); RDW Standard Deviation 47.7 fL (35.1-46.3); Red Blood Cell Count 2.62 M/mm3 (4.30-5.90); White Blood Cell Count 8.09 K/mm3 (4.00-11.30)
[2023-09-24 07:17] VITALS: BP 115/86
[2023-09-24] MEDS ORDERED: FOLI1 PO (11:34)
[2023-09-24] MEDS ORDERED: LISI5 PO (11:34)
[2023-09-24] MEDS ORDERED: Acetaminophen325 M1 PO (11:34)
[2023-09-24] MEDS ORDERED: METO50 PO (11:35)
[2023-09-24] MEDS ORDERED: XARELTO15 MG PO (11:36)
[2023-09-24] MEDS ORDERED: PANT40 PO (11:36)
[2023-09-24 15:39] VITALS: BP 99/76
--- NOTE | 2023-09-24 16:55 | NUR ---
SHIFT SUMMARY: PATIENT WAS TO BE DISCHARGED, BUT NO RIDE OR RESIDENTIAL ADDRESS FOR HH AND OTHER SERVICES. WATER PUMPER AND THIS AUTHOR NOT COMFORTABLE SENDING PATIENT OUT WITHOUT SOMEONE TO HELP HIM. CM STATED SHE WILL WORK ON THIS TOMORROW. DR. MARIE NOTIFIED OF D/C DELAY. OTHERWISE, HE DENIES PAIN. TWO PERSON ASSIST TO GET TO CHAIR. APPETITE OK. WAS [facility]UED CE[facility].
[2023-09-24 20:09] VITALS: BP 108/73
[2023-09-25 03:04] VITALS: BP 105/80
--- NOTE | 2023-09-25 05:45 | NUR ---
SHIFT SUMMEY. PT HAVING HS SNACK BEFORE BED. PT GIVEN TYLENOL FOR MINOR ACK. PT SLEEPING MOST OF THE NIGHT. CALL LIGHT IN REACH.
[2023-09-25 07:43] VITALS: BP 115/90
--- NOTE | 2023-09-25 13:20 | NUR ---
PATIENT DISCHARGED [facility], STOPPING AT [facility] TO BASIC COMBATANT SWIMMER HIS MEDICATIONS FIRST. PANEL WIRER Jose M GEORGE WENT OVER D/C INSTRUCTIONS WITH PATIENT. IV HAD BEEN REMOVED YESTERDAY. OFF UNIT VIA W/C AT 1258 TO [place] ENTRANCE TO CATCH HIS TAXI. NO PERSONAL BELONGINGS LEFT BEHIND IN ROOM.
== END 2023-09-25 13:12 | disposition home health service (06) | DRG 308 ==
LOC: ER 23:47 → PCU 09-17 05:02 → MEDS 09-17 05:02 → PCU 09-17 06:37 → MEDS 09-18 08:23 → ENPENDDIS 09-24 12:59 → MEDS 09-25 13:12
PROVIDERS: Family Medicine; Internal Medicine; Student in an Organized Health Care Education/Training Program; ADMIT Internal Medicine
PROC: 0T9B30Z Drainage of Bladder with Drainage Device, Percutaneous Approach (ICD-10-PCS; principal; 2023-09-17)
DX: I48.0 Paroxysmal atrial fibrillation (principal); E43 Unspecified severe protein-calorie malnutrition; I26.99 Other pulmonary embolism without acute cor pulmonale; G92.8 Other toxic encephalopathy; N17.9 Acute kidney failure, unspecified; Z68.1 Body mass index [BMI] 19.9 or less, adult; N13.30 Unspecified hydronephrosis; I50.22 Chronic systolic (congestive) heart failure; L97.329 Non-pressure chronic ulcer of left ankle with unspecified severity; L97.829 Non-pressure chronic ulcer of other part of left lower leg with unspecified severity; L97.819 Non-pressure chronic ulcer of other part of right lower leg with unspecified severity; I42.9 Cardiomyopathy, unspecified; F15.10 Other stimulant abuse, uncomplicated; G89.29 Other chronic pain; M25.529 Pain in unspecified elbow; K21.9 Gastro-esophageal reflux disease without esophagitis; F43.10 Post-traumatic stress disorder, unspecified; F41.9 Anxiety disorder, unspecified; F17.210 Nicotine dependence, cigarettes, uncomplicated; E16.2 Hypoglycemia, unspecified; R31.9 Hematuria, unspecified; E87.6 Hypokalemia; E86.0 Dehydration; R74.01 Elevation of levels of liver transaminase levels; K44.9 Diaphragmatic hernia without obstruction or gangrene; N32.89 Other specified disorders of bladder; J43.2 Centrilobular emphysema; D64.9 Anemia, unspecified; D69.6 Thrombocytopenia, unspecified; L97.519 Non-pressure chronic ulcer of other part of right foot with unspecified severity; K40.90 Unilateral inguinal hernia, without obstruction or gangrene, not specified as recurrent; R53.81 Other malaise; Z11.52 Encounter for screening for COVID-19; Z71.51 Drug abuse counseling and surveillance of drug abuser; Z28.21 Immunization not carried out because of patient refusal
CPT/HCPCS: 0241U; 36415; 51102; 70450; 71260; 74177; 76937; 80047; 80048; 80053; 82607; 82728; 82746; 82947; 83540; 83550; 83735; 83880; 84443; 85014; 85025; 85027; 85520; 85610; 93005; 93010; 93970; 96361; 96374-59; 96375; 97110; 97116; 97162; 97165; 97530; 99285-25; A9270; C1729; C1769; C9113; J1644; J2250; J2270; J2405; J3010; J7030; Q9967

== ENCOUNTER 2023-10-02 17:03 | Inpatient (IN) | payer OTHER ==
[~2023-10-02] VITALS: Ht 182.9 cm; Wt 58.8 kg
[~2023-10-02 17:03] MED LIST changes: +Acetaminophen325 M1 PO; +FOLI1 PO; +LISI5 PO; +XARELTO15 MG PO
[2023-10-02] MEDS ORDERED: Albuterol 2.5 MG/3 ML VIAL INH SCH (17:40)
[2023-10-02 17:57] LABS: BASOPHILS ABSOLUTE AUTO 0.02 K/mm3 (0.00-0.23); BASOPHILS PERCENT AUTO 0 % (0-2); EOSINOPHILS ABSOLUTE AUTO 0.01 K/mm3 (0.00-0.68); EOSINOPHILS PERCENT AUTO 0 % (0-6); Hematocrit 21.2 % (37.0-53.0); Hemoglobin 6.9 g/dL (13.5-17.5); IMMATURE GRAN ABSOLUTE AUTO 0.05 K/mm3 (0.00-0.10); IMMATURE GRAN PERCENT AUTO 1 % (0-1); LYMPHOCYTES ABSOLUTE AUTO 0.64 K/mm3 (0.84-5.20); LYMPHOCYTES PERCENT AUTO 11 % (21-46); MONOCYTES ABSOLUTE AUTO 0.42 K/mm3 (0.16-1.47); MONOCYTES PERCENT AUTO 7 % (4-13); Mean Corpuscular HGB Conc 32.5 g/dL (31.5-36.5); Mean Corpuscular Volume 104 fL (80-100); Mean Platelet Volume 9.2 fL (9.1-12.4); NEUTROPHILS PERCENT AUTO 80 % (41-73); NRBC ABSOLUTE 0.06 K/mm3 (0.00-0.02); NRBC Auto 1.1 /100 WBC (0.0-0.2); Platelet Count 326 K/mm3 (150-400); RDW Coefficient Variation 21.4 % (11.7-14.2); RDW Standard Deviation 71.6 fL (35.1-46.3); Red Blood Cell Count 2.03 M/mm3 (4.30-5.90); White Blood Cell Count 5.64 K/mm3 (4.00-11.30)
[2023-10-02 18:19] LABS: Albumin, Blood 2.3 g/dL (3.4-5.0); Albumin/Globulin Ratio 0.8 (0.8-1.8); Bilirubin, Total 0.4 mg/dL (0.1-1.0); Bun/Creatinine Ratio 35.4 (12.0-20.0); Calcium, Blood 7.6 mg/dL (8.5-10.1); Creatinine, Blood 0.62 mg/dL (0.60-1.20); Globulin, Blood 2.8 g/dL (2.2-4.0); Potassium, Blood 3.8 mmol/L (3.5-5.5); Total Protein, Blood 5.1 g/dL (6.4-8.2)
[2023-10-02 18:46] LABS: Influenza A, PCR NEGATIVE (NEGATIVE); Influenza B, PCR NEGATIVE (NEGATIVE); SARS-Cov-2 (COVID-19) PCR, MMC NEGATIVE (NEGATIVE)
[2023-10-02 18:47] LABS: Resp Syncytial Virus, PCR POSITIVE (NEGATIVE)
[2023-10-02] MEDS ORDERED: NS 1,000 ML IV SCH ×2 (19:00→21:55)
[2023-10-02 19:05] LABS: International Normalized Ratio 1.52; Prothrombin Time Results 15.6 Sec (9.7-11.5)
[2023-10-02] MEDS ORDERED: Acetaminophen 500 MG Tab PO ONE (19:30)
[2023-10-02 20:12] LABS: Source, Urine Suprapubic Cath
[2023-10-02 20:15] LABS: Appearance, Urine Cloudy (Clear); Bilirubin, Urine Neg (Neg); Blood, Urine 5+ (Neg); Color, Urine Yellow (P-Yellow); Glucose Qualitative, Urine Neg (Neg); Ketones, Urine Neg (Neg); Leukocyte Esterase, Urine 3+ (Neg); Nitrite, Urine Pos (Neg); Protein, Urine 3+ (Neg); Specific Gravity, Urine 1.015 (1.003-1.022); Urobilinogen, Urine NORM (Normal)
[2023-10-02 20:25] LABS: Bacteria Few /hpf; Red Blood Cells, Urine 50-100 /hpf (0-2); Squamous Epithelial Cells Rare /hpf (Few)
[2023-10-02 20:26] LABS: Amorphous Mod (0-Heavy); Triple Phosphate Crystals Few /hpf
[2023-10-02] MEDS ORDERED: CefTRIAXone Sodium 1,000 MG in NS 50 ML IV ONE (20:45)
[2023-10-02] MEDS ORDERED: Acetaminophen 325 MG TABLET PO PRN (21:40)
[2023-10-02] MEDS ORDERED: FLU VACC QS2023-24(6MOS UP)/PF 60 MCG/0.5 ML SYRINGE IM SCH (21:40)
[2023-10-02] MEDS ORDERED: NS 1,000 ML IV ONE (21:47)
[2023-10-02] MEDS ORDERED: Lactobacil 2-S.Thermo-Bifido 1 1 Cap PO SCH (22:00)
--- NOTE | 2023-10-02 22:57 | NUR ---
SUPRAPUBIC CATHETER: SPOKE WITH DR. MAJOR ABOUT PT'S SUPRAPUBIC CATHETER AND HOW IT WAS PLACED 09/17/23 AND STILL HAS THE SUTURE IN PLACE. ADVISED NOT TO REPLACE CATHETER AND WAIT TILL IR IS ON TO GET A CONSULT.
[2023-10-02 23:00] VITALS: BP 71/36
[2023-10-02 23:15] VITALS: BP 91/67
[2023-10-02 23:30] VITALS: BP 88/63
[2023-10-02 23:45] VITALS: BP 94/74
[2023-10-02 23:50] LABS: U Amphetamine Screen Not Detected; U Barbituate Screen Not Detected; U Benzodiazapine Screen Not Detected; U Buprenorphine Screen Not Detected; U Cannabinoids Screen Not Detected; U Cocaine Screen Not Detected; U Methadone Screen Not Detected; U Methamphetamine Screen Not Detected; U Opiates Screen Not Detected; U Oxycodone Screen Not Detected; U Phencyclidine Screen Not Detected
[2023-10-03] VITALS (35 sets, daily range): BP systolic 80–119; BP diastolic 55–78
--- NOTE | 2023-10-03 00:06 | NUR ---
INITIAL ASSESSMENT Patient arrived, alert/oriented/appropriate, BP MAP lower side, monitoring at that time as bolus 500 mL/H, 1000 mL x 1 infusing, and patient sitting up, repositined bed and assessments performed on wounds, pictures taken. VS otherwise stable, denies pain at present, biggest concerns was food. All admission assessments performed, IV's intact x 2, SCD's placed, medication given and food brought per reqeust, warm blanket and extra pillow as well. Resting, watching TV, no acute concerns otherwise, monitoring BP closely (see VS). Call light in reach.
[2023-10-03 03:50] LABS: Hematocrit 23.5 % (37.0-53.0); Hemoglobin 7.7 g/dL (13.5-17.5); Mean Corpuscular HGB 33.2 pg (26.0-34.0); Mean Corpuscular HGB Conc 32.8 g/dL (31.5-36.5); Mean Corpuscular Volume 101 fL (80-100); Mean Platelet Volume 9.6 fL (9.1-12.4); NRBC ABSOLUTE 0.04 K/mm3 (0.00-0.02); NRBC Auto 0.7 /100 WBC (0.0-0.2); Platelet Count 326 K/mm3 (150-400); RDW Coefficient Variation 23.4 % (11.7-14.2); RDW Standard Deviation 79.9 fL (35.1-46.3); Red Blood Cell Count 2.32 M/mm3 (4.30-5.90); White Blood Cell Count 5.53 K/mm3 (4.00-11.30)
--- NOTE | 2023-10-03 03:56 | NUR ---
UPDATE PT IS A CURRENT SMOKER AND STATED THAT HE HAD A [employer]ORTATION [employer] IN HIS JACKET. HIS CLOTHES AND [employer] INTER[employer] ARE LOCKED UP IN THE ROOM. THERE IS A SIGN ON THE LOCKED DOOR.
[2023-10-03 04:13] LABS: Bun/Creatinine Ratio 29.5 (12.0-20.0); Calcium, Blood 7.4 mg/dL (8.5-10.1); Creatinine, Blood 0.64 mg/dL (0.60-1.20)
[2023-10-03] MEDS ORDERED: Pantoprazole Sodium 40 MG Tab PO SCH (06:00)
--- NOTE | 2023-10-03 06:34 | NUR ---
SHIFT SUMMARY Overnight, BP had some low MAP but with recheck and repositioning of cuff, reassessment, remained > 65. Other VS stable, patient awoke at one point and ate a few snacks which included a big bag of gummie snacks and Mountain Dew. Later fixated on ordering breakfast, finally able to track down menu for patient and additionally patient called radial drill press operator for plastic to transfer to kitchen to place order, which was clever. VS otherwise remained stable, output from harry catheter yellow but VERY foul smelling. No concerns otherwise at present time. Report in progress.
[2023-10-03] MEDS ORDERED: Folic Acid 1 MG TAB PO SCH (09:00)
[2023-10-03] MEDS ORDERED: DEXTROMETHORPHAN/BENZOCAINE 1 EACH LOZENGE MT PRN (09:25)
--- NOTE | 2023-10-03 09:25 | NUR ---
CARE OF PT ASSESSED AT 0700. PT AWAKE AND ALERT. PT HYPOTENSIVE AT TIMES WITH MAP >65, ASYMPTOMATIC. PT C/O HEADACHE /, DENIES OTHER PAIN. DENIES SOB WORSE THAN BASELINE. SATS >90% ON RA. PT HAS PIGTAIL LIKE CATHETER SUPRAPUBIC CATHETER TO RLQ. SUTURES ARE AROUND CATHETER BUT NOT SUTURED TO PATIENT, STAT LOCK IS UNATTACHED. PURULENT NON-ODOROUS DRAINAGE NOTED AROUND INSERTION SITE. AREA CLEANED AND SECURED, DRAINAGE SPONGE PLACED. HEMATURIA APPEARS TO BE RESOLVED, URINE YELLOW. DR OROZCO IN TO SEE PT THIS AM, UPDATE GIVEN. PT NOW MEDICAL STATUS W/O TELE.
[2023-10-03] MEDS ORDERED: Albuterol 2.5 MG/3 ML VIAL INH PRN (10:05)
[2023-10-03] MEDS ORDERED: Benzonatate 100 MG Cap PO PRN (13:20)
[2023-10-03] MEDS ORDERED: Guaifenesin/Dextromethorphan Syrup 5 ML UDC PO PRN (13:25)
--- NOTE | 2023-10-03 19:15 | NUR ---
ASSUMPTION OF CARE RECEIVED INTO CARE. REPORT GIVEN BY DAY RN. PT AWAKE AND ALERT LYING IN BED WATCHING TV. APPLE JUICE GIVEN. NOT ON MONITOR. NO VOICED CONCERNS AT THIS TIME CALL FRANCISCO IN REACH.
[2023-10-03] MEDS ORDERED: NS 50 ML IV ONE (19:55)
[2023-10-03] MEDS ORDERED: CefTRIAXone Sodium 1,000 MG in NS 50 ML IV SCH (21:00)
[2023-10-03] MEDS ORDERED: Famotidine 20 MG Tab PO SCH (21:00)
[2023-10-04 04:04] VITALS: BP 114/92
[2023-10-04 04:22] LABS: Hematocrit 23.4 % (37.0-53.0); Hemoglobin 7.6 g/dL (13.5-17.5); Mean Corpuscular HGB 32.6 pg (26.0-34.0); Mean Corpuscular HGB Conc 32.5 g/dL (31.5-36.5); Mean Corpuscular Volume 100 fL (80-100); Mean Platelet Volume 9.7 fL (9.1-12.4); Platelet Count 312 K/mm3 (150-400); RDW Coefficient Variation 22.3 % (11.7-14.2); RDW Standard Deviation 79.2 fL (35.1-46.3); Red Blood Cell Count 2.33 M/mm3 (4.30-5.90); White Blood Cell Count 4.17 K/mm3 (4.00-11.30)
[2023-10-04 05:04] LABS: Albumin, Blood 1.9 g/dL (3.4-5.0); Anion Gap 0 mmol/L (6-16); Blood Urea Nitrogen 16 mg/dL (8-24); Bun/Creatinine Ratio 28.2 (12.0-20.0); CO2, Blood 32 mmol/L (21-32); Calcium, Blood 7.4 mg/dL (8.5-10.1); Chloride, Blood 110 mmol/L (98-108); Creatinine, Blood 0.57 mg/dL (0.60-1.20); Glomerular Filtration Rate 109 (60-); Glucose, Blood 95 mg/dL (70-99); Magnesium, Blood 1.5 mg/dL (1.6-2.4); Phosphorus, Blood 2.8 mg/dL (2.5-4.9); Potassium, Blood 3.7 mmol/L (3.5-5.5); Sodium, Blood 142 mmol/L (136-145)
--- NOTE | 2023-10-04 06:03 | NUR ---
SHIFT SUMMARY ALERT AND ORIENTED. TYLENOL GIVEN PER EMAR FOR CONSTANT HEADACHE, HEAT PAD GIVEN FOR BACK OF NECK. SPO2>97 ON ROOM AIR. BP STABLE. UROSTOMY IN PLACE, PURULENT AT DRAIN SITE. DRAINING ADEQUATE AMOUNT OF YELLOW URINE. HAD BM. NO VOICED CONCERNS AT THIS TIME. REMAINS AWAKE LYING IN BED WATCHING TV. CALL FRANCISCO IN REACH.
[2023-10-04] MEDS ORDERED: Mag Sulfate 1 GM/D5% 100ML 100 ML IV STA (07:23)
[2023-10-04 08:11] VITALS: BP 110/89
--- NOTE | 2023-10-04 09:41 | NUR ---
CARE OF PT ASSUMED AT 0700. PT AWAKE AND ALERT THIS AM. PT DENIES C/O PAIN, STATES HEADACHE IS RESOLVED. PT SBA TO CHAIR FOR BREAKFAST THEN BACK TO BED AGAIN. SCD'S IN PLACE. VSS. TEMP 99.1. DR OROZCO IN TO SEE PT, UPDATE GIVEN. MAG 1GM GIVEN. WOUND CX TAKEN OF SUPRAPUBIC CATHETER INSERTION SITE; AREA DRAINING SMALL AMOUNT OF PURULENT DRAINAGE. URINE DRAINED FROM BAG HAS VERY FOUL ORDER. BP STABLE THIS AM.
[2023-10-04 17:30] VITALS: BP 120/85
--- NOTE | 2023-10-04 18:40 | NUR ---
PT UP IN CHAIR FOR SEVERAL HOURS TODAY, SHAN WELL. CULTURE SENT OF SUPRAPUBIC INSERTION SITE. TYLENOL GIVEN AT END OF SHIFT FOR TEMP 100.9, OTHERWISE VSS. PT RESTING IN BED WATCHING THE SUPER-BOWL.
[2023-10-04] MEDS ORDERED: Nicotine 7 MG PATCH TOP SCH (18:50)
--- NOTE | 2023-10-04 19:15 | NUR ---
ASSUMPTION OF CARE RECEIVED INTO CARE. REPORT GIVEN BY DAY RN. PT AWAKE AND ALERT LYING IN BED WATCHING TV. ORIENTED. NOT ON MONITOR. NO VOICED CONCERNS AT THIS TIME. CALL FRANCISCO IN REACH.
[2023-10-04 19:42] VITALS: BP 101/74
[2023-10-05 04:09] VITALS: BP 120/86
[2023-10-05 04:11] LABS: Hematocrit 25.9 % (37.0-53.0); Hemoglobin 8.5 g/dL (13.5-17.5); Mean Corpuscular HGB 33.6 pg (26.0-34.0); Mean Corpuscular HGB Conc 32.8 g/dL (31.5-36.5); Mean Corpuscular Volume 102 fL (80-100); Mean Platelet Volume 9.3 fL (9.1-12.4); Platelet Count 323 K/mm3 (150-400); RDW Coefficient Variation 21.3 % (11.7-14.2); RDW Standard Deviation 79.7 fL (35.1-46.3); Red Blood Cell Count 2.53 M/mm3 (4.30-5.90); White Blood Cell Count 4.58 K/mm3 (4.00-11.30)
[2023-10-05 04:25] LABS: Magnesium, Blood 1.8 mg/dL (1.6-2.4)
[2023-10-05 04:26] LABS: Anion Gap Unable to Calculate mmol/L (6-16); Blood Urea Nitrogen 14 mg/dL (8-24); Bun/Creatinine Ratio 23.5 (12.0-20.0); CO2, Blood 33 mmol/L (21-32); Calcium, Blood 7.8 mg/dL (8.5-10.1); Chloride, Blood 108 mmol/L (98-108); Glomerular Filtration Rate 106 (60-); Glucose, Blood 107 mg/dL (70-99); Potassium, Blood 4.4 mmol/L (3.5-5.5); Sodium, Blood 139 mmol/L (136-145)
--- NOTE | 2023-10-05 05:47 | NUR ---
SHIFT SUMMARY ALERT AND ORIENTED. SLEPT WELL THROUGHOUT NIGHT. TYLENOL GIVEN FOR HEADACHE PER EMAR AND WAS EFFECTIVE. VSS. SUPRAPUBIC CATHETER DRAINED ADEQUATE AMOUNT YELLOW URINE, INSERTION SITE PURULENT. DRESSING IN PLACE. SHAVED/BATHED THIS MORNING, INDEP W ADLS. PT STATES IS FEELING MUCH BETTER. NO VOICED CONCERNS AT THIS TIME. REMAINS AWAKE WATCHING TV. CALL FRANCISCO IN REACH.
[2023-10-05 08:45] VITALS: BP 126/84
[2023-10-05] MEDS ORDERED: Rivaroxaban 10 MG Tab PO SCH (09:00)
[2023-10-05] MEDS ORDERED: Ciprofloxacin 500 MG Tab PO ONE (11:00)
[2023-10-05] MEDS ORDERED: CIPR250 PO (11:57)
--- NOTE | 2023-10-05 13:42 | NUR ---
Upon receiving a referral for spiritual care, I visited with the patient. He tells me about the poor choices that he has made in life that have effected his health, about his family unit complications and his [employer] lou which has helped him survive despite his life choices. He talks about about his desire to do better and that he gets a boost from being in the hospital which reminds him of the preciousness of life, family and friends. We explored ways to change towards health, I heard confession, normalized his struggle and provided therapeutic listening and prayer. PAtient responded well and showed signs of an increase in peace. I will continue to remain available to patient and family.
--- NOTE | 2023-10-05 14:32 | NUR ---
DISCHARGE SUMMARY: PATIENT READY FOR DISCHARGE PER ORDERS. PATIENT RECEIVED FIRST DOSE OF PO ANTIBIOTICS PER ORDERS PRIOR TO DISCHARGE. DISCHARGE RX SENT TO [facility] PER PATIENT REQUEST. DISCHARGE INSTRUCTIONS PROVIDED ON SUPRAPUBIC CATH CARE AND COLLECTION BAG CARE. DISCHARGE EDUCATION AND INSTRUCTIONS PROVIDED TO PATIENT. ALL QUESTIONS AND CONCERNS ADDRESSED. ARRANGED RIDE THROUGHOUT [facility]. PATIENT DENIED FURTHER NEEDS AT TIME OF DISCHARGE. PATIENT STABLE AT TIME OF DISCHARGE. PATIENT DENIED PAIN OR DISCOMFORT THROUGHOUT THE SHIFT. PATIENT DENIED SHORTNESS OF BREATH AT REST OR WITH ACTIVITY. PATIENT INDEPENDENT IN THE ROOM. PATIENT STEADY ON HIS FEET. PATIENT HAS AN EXCELLENT APPETITE. URINE IN THE COLLECTION BAG IS LIGHT YELLOW WITHOUT SEDIMENT. NO FOUL ODOR NOTED. PATIENT DENIES PAIN OR DISCOMFORT AT THE INSERTION SITE. PER THE PATIENT, THE SITE IS IMPROVING. DRESSING IS C/D/I.
== END 2023-10-05 14:00 | disposition home or self-care (01) | DRG 695 ==
LOC: ER 17:03 → ICUE 21:39 → ERHOLD 21:39 → ICUE 22:24
PROVIDERS: Internal Medicine; Student in an Organized Health Care Education/Training Program; ADMIT Internal Medicine
PROC: 30233N1 Transfusion of Nonautologous Red Blood Cells into Peripheral Vein, Percutaneous Approach (ICD-10-PCS; principal; 2023-10-02)
PROC: 3E033XZ Introduction of Vasopressor into Peripheral Vein, Percutaneous Approach (ICD-10-PCS; 2023-10-02)
DX: R31.0 Gross hematuria (principal); I26.99 Other pulmonary embolism without acute cor pulmonale; I50.22 Chronic systolic (congestive) heart failure; Z59.01 Sheltered homelessness; Z16.20 Resistance to unspecified antibiotic; D62 Acute posthemorrhagic anemia; L03.311 Cellulitis of abdominal wall; N13.6 Pyonephrosis; B97.4 Respiratory syncytial virus as the cause of diseases classified elsewhere; I48.91 Unspecified atrial fibrillation; K21.9 Gastro-esophageal reflux disease without esophagitis; F15.10 Other stimulant abuse, uncomplicated; M25.529 Pain in unspecified elbow; R31.9 Hematuria, unspecified; G89.29 Other chronic pain; F43.10 Post-traumatic stress disorder, unspecified; F41.9 Anxiety disorder, unspecified; B96.4 Proteus (mirabilis) (morganii) as the cause of diseases classified elsewhere; B95.61 Methicillin susceptible Staphylococcus aureus infection as the cause of diseases classified elsewhere; Z98.890 Other specified postprocedural states; F17.210 Nicotine dependence, cigarettes, uncomplicated; Z88.0 Allergy status to penicillin; Z88.5 Allergy status to narcotic agent; Z88.8 Allergy status to other drugs, medicaments and biological substances; Z79.899 Other long term (current) drug therapy; Z79.01 Long term (current) use of anticoagulants; Z11.52 Encounter for screening for COVID-19
CPT/HCPCS: 0241U; 36415; 36430; 71046; 74177; 76857; 80048; 80053; 80069; 81001; 83605; 83735; 84153; 84154; 85025; 85027; 85610; 86850; 86900; 86901; 86923; 87040; 87070; 87075; 87077; 87086; 87147; 87186; 87205; 94640; 94664; 94760; 96365-59; 99291-25; A9270; J0696; J3475; J7030; J7060; P9016; Q9967

== ENCOUNTER 2023-10-11 17:44 | Emergency (ER) | payer OTHER ==
[~2023-10-11] VITALS: Ht 182.9 cm; Wt 59.0 kg
[~2023-10-11 17:44] MED LIST changes: +CIPR250 PO
[2023-10-11 18:54] LABS: BASOPHILS ABSOLUTE AUTO 0.04 K/mm3 (0.00-0.23); BASOPHILS PERCENT AUTO 1 % (0-2); EOSINOPHILS ABSOLUTE AUTO 0.13 K/mm3 (0.00-0.68); EOSINOPHILS PERCENT AUTO 2 % (0-6); Hematocrit 30.6 % (37.0-53.0); Hemoglobin 9.8 g/dL (13.5-17.5); IMMATURE GRAN ABSOLUTE AUTO 0.06 K/mm3 (0.00-0.10); IMMATURE GRAN PERCENT AUTO 1 % (0-1); LYMPHOCYTES PERCENT AUTO 20 % (21-46); MONOCYTES ABSOLUTE AUTO 0.48 K/mm3 (0.16-1.47); MONOCYTES PERCENT AUTO 8 % (4-13); Mean Corpuscular HGB 33.6 pg (26.0-34.0); Mean Corpuscular Volume 105 fL (80-100); Mean Platelet Volume 9.3 fL (9.1-12.4); NEUTROPHILS ABSOLUTE AUTO 4.05 K/mm3 (1.96-9.15); NEUTROPHILS PERCENT AUTO 68 % (41-73); Platelet Count 487 K/mm3 (150-400); RDW Coefficient Variation 20.1 % (11.7-14.2); RDW Standard Deviation 76.9 fL (35.1-46.3); Red Blood Cell Count 2.92 M/mm3 (4.30-5.90); White Blood Cell Count 5.96 K/mm3 (4.00-11.30)
[2023-10-11 19:11] LABS: Albumin, Blood 2.6 g/dL (3.4-5.0); Albumin/Globulin Ratio 0.9 (0.8-1.8); Bilirubin, Total 0.3 mg/dL (0.1-1.0); Bun/Creatinine Ratio 43.8 (12.0-20.0); Calcium, Blood 8.3 mg/dL (8.5-10.1); Creatinine, Blood 0.71 mg/dL (0.60-1.20); Potassium, Blood 3.9 mmol/L (3.5-5.5); Total Protein, Blood 5.6 g/dL (6.4-8.2)
[2023-10-11 22:23] LABS: Source, Urine Clean Catch
[2023-10-11 22:28] LABS: Bilirubin, Urine Neg (Neg); Blood, Urine 5+ (Neg); Glucose Qualitative, Urine Neg (Neg); Ketones, Urine 1+ (Neg); Leukocyte Esterase, Urine 2+ (Neg); Nitrite, Urine Neg (Neg); Protein, Urine 3+ (Neg); Urobilinogen, Urine NORM (Normal)
[2023-10-11 22:36] LABS: Appearance, Urine Cloudy (Clear); Color, Urine Red (P-Yellow)
[2023-10-11 22:37] LABS: Bacteria Few /hpf; Red Blood Cells, Urine TNTC /hpf (0-2); Squamous Epithelial Cells Not Seen /hpf (Few)
[2023-10-11] MEDS ORDERED: Ciprofloxacin 400MG/D5 200ML 200 ML IV ONE (23:25)
[2023-10-12 01:06] VITALS: BP 128/86
[2023-10-12] MEDS ORDERED: CIPR500 PO (01:39)
== END 2023-10-12 01:51 | disposition home or self-care (01) ==
LOC: ER 17:44
PROVIDERS: Physician Assistant
DX: N30.01 Acute cystitis with hematuria (principal); F17.200 Nicotine dependence, unspecified, uncomplicated; K21.9 Gastro-esophageal reflux disease without esophagitis; F43.10 Post-traumatic stress disorder, unspecified
CPT/HCPCS: 71046; 80053; 81001; 85025; 87086; 96365; 99284-25; J0744

== ENCOUNTER 2024-03-14 17:33 | Inpatient (IN) | payer MEDICARE, OTHER ==
[~2024-03-14] VITALS: Ht 182.9 cm; Wt 60.4 kg
[~2024-03-14 17:33] MED LIST changes: +CIPR500 PO; +TAMSULOSIN HCL0.4 M1 PO
[2024-03-14 18:05] LABS: BASOPHILS ABSOLUTE AUTO 0.04 K/mm3 (0.00-0.23); BASOPHILS PERCENT AUTO 0 % (0-2); EOSINOPHILS ABSOLUTE AUTO 0.15 K/mm3 (0.00-0.68); EOSINOPHILS PERCENT AUTO 1 % (0-6); Hematocrit 37.1 % (37.0-53.0); Hemoglobin 12.9 g/dL (13.5-17.5); IMMATURE GRAN ABSOLUTE AUTO 0.14 K/mm3 (0.00-0.10); IMMATURE GRAN PERCENT AUTO 1 % (0-1); LYMPHOCYTES ABSOLUTE AUTO 0.42 K/mm3 (0.84-5.20); LYMPHOCYTES PERCENT AUTO 3 % (21-46); MONOCYTES ABSOLUTE AUTO 0.73 K/mm3 (0.16-1.47); MONOCYTES PERCENT AUTO 5 % (4-13); Mean Corpuscular HGB 32.4 pg (26.0-34.0); Mean Corpuscular HGB Conc 34.8 g/dL (31.5-36.5); Mean Corpuscular Volume 93 fL (80-100); Mean Platelet Volume 10.8 fL (9.1-12.4); NEUTROPHILS ABSOLUTE AUTO 12.81 K/mm3 (1.96-9.15); NEUTROPHILS PERCENT AUTO 90 % (41-73); Platelet Count 219 K/mm3 (150-400); RDW Coefficient Variation 14.4 % (11.7-14.2); RDW Standard Deviation 49.3 fL (35.1-46.3); Red Blood Cell Count 3.98 M/mm3 (4.30-5.90); White Blood Cell Count 14.29 K/mm3 (4.00-11.30)
[2024-03-14 18:27] LABS: Albumin, Blood 2.5 g/dL (3.4-5.0); Albumin/Globulin Ratio 0.7 (0.8-1.8); Bilirubin, Total 0.5 mg/dL (0.1-1.0); Bun/Creatinine Ratio 33.1 (12.0-20.0); Calcium, Blood 8.7 mg/dL (8.5-10.1); Creatinine, Blood 1.21 mg/dL (0.60-1.20); Globulin, Blood 3.6 g/dL (2.2-4.0); Potassium, Blood 3.8 mmol/L (3.5-5.5); Total Protein, Blood 6.1 g/dL (6.4-8.2)
[2024-03-14] MEDS ORDERED: FentaNYL Citrate 50 MCG/ML 2 ML Injection IV ONE (21:25)
[2024-03-14] MEDS ORDERED: Tamsulosin HCl 0.4 MG Cap PO ONE (21:25)
[2024-03-14] MEDS ORDERED: Lidocaine 2% Jelly Uro-Jet UR ONE (21:25)
[2024-03-14] MEDS ORDERED: Diazepam 5 MG / ML 2ML SYR IV ONE (22:40)
[2024-03-14] MEDS ORDERED: HYDROmorphone HCl/Pf 1MG SYR IV ONE (22:40)
[2024-03-14] MEDS ORDERED: Ciprofloxacin 400MG/D5 200ML 200 ML IV ONE (23:15)
[2024-03-14] MEDS ORDERED: Ondansetron HCl 2 MG / ML 2ML Vial IV PRN (23:30)
[2024-03-14] MEDS ORDERED: FentaNYL Citrate 50 MCG/ML 2 ML Injection IV PRN (23:30)
[2024-03-15] MEDS ORDERED: TAMS.4ER PO ×2 (00:31)
[2024-03-15 01:21] VITALS: BP 130/87
[2024-03-15] MEDS ORDERED: Acetaminophen 325 MG TABLET PO PRN (01:30)
--- NOTE | 2024-03-15 01:32 | NUR ---
ADMIT NOTE CALLED ER AT 0050 AND RECEIVED REPORT FROM DAVID BULLOCK. PT ARRIVED TO 311 AT 0105. PT HAS A FEVER OF 101.6. TYLENOL ORDERED PER DR CERON. SCD'S AND TELE PLACED. DIFFICULT TO GET A BIOX READING ON THIS PT. PT NOT ON O2 PRIOR TO COMING TO MEDICAL FLOOR.PT BIOX WAS 88-89. PT PLACED ON 3L OF O2 AND BIOX IS NOW 93. NO COMPLAINTS OF SOB AND PT DOES NOT APPEAR TO BE IN ANY KIND OF DISTRESS. PT LYING IN BED AND RESTING QUIETLY WITH EYES CLOSED AT THIS TIME. BED IN LOW POSITION AND CALL LIGHT IS WITHIN HIS REACH. WILL CONTINUE TO MONITOR.
--- NOTE | 2024-03-15 02:08 | NUR ---
PAIN MEDS AND TYLENOL GIVEN PER EMAR FOR PAIN AND FEVER.
[2024-03-15 04:12] VITALS: BP 104/79
[2024-03-15] MEDS ORDERED: HYDROmorphone HCl/Pf 1MG SYR IV ONE (04:25)
[2024-03-15 05:05] LABS: Hematocrit 33.1 % (37.0-53.0); Hemoglobin 11.8 g/dL (13.5-17.5); Mean Corpuscular HGB 32.6 pg (26.0-34.0); Mean Corpuscular HGB Conc 35.6 g/dL (31.5-36.5); Mean Corpuscular Volume 91 fL (80-100); Mean Platelet Volume 10.7 fL (9.1-12.4); Platelet Count 171 K/mm3 (150-400); RDW Coefficient Variation 14.6 % (11.7-14.2); RDW Standard Deviation 49.6 fL (35.1-46.3); Red Blood Cell Count 3.62 M/mm3 (4.30-5.90); White Blood Cell Count 17.79 K/mm3 (4.00-11.30)
[2024-03-15 05:38] LABS: BAND PERCENT MAN 7 % (0-8); BASOPHILS PERCENT MAN 0 % (0-2); EOSINOPHILS PERCENT MAN 0 % (0-6); LYMPHOCYTES ABSOLUTE MAN 0.17 K/mm3 (0.84-5.20); LYMPHOCYTES PERCENT MAN 1 % (21-46); MONOCYTES ABSOLUTE MAN 1.24 K/mm3 (0.16-1.47); MONOCYTES PERCENT MAN 7 % (4-13); NEUTROPHILS ABSOLUTE MAN 16.36 K/mm3 (1.96-9.15); SEG NEUTROPHILS PERCENT MAN 85 % (41-73); TOTAL CELLS COUNTED 100
[2024-03-15 05:56] LABS: Albumin, Blood 2.2 g/dL (3.4-5.0); Albumin/Globulin Ratio 0.6 (0.8-1.8); Bilirubin, Total 0.7 mg/dL (0.1-1.0); Bun/Creatinine Ratio 34.7 (12.0-20.0); Calcium, Blood 8.5 mg/dL (8.5-10.1); Creatinine, Blood 1.21 mg/dL (0.60-1.20); Globulin, Blood 3.5 g/dL (2.2-4.0); Potassium, Blood 3.4 mmol/L (3.5-5.5); Total Protein, Blood 5.7 g/dL (6.4-8.2)
[2024-03-15] MEDS ORDERED: Pantoprazole Sodium 40 MG Tab PO SCH (06:00)
[2024-03-15] MEDS ORDERED: Potassium Chl 20MEQ/Water100ML 100 ML IV ONE (06:20)
[2024-03-15 07:21] VITALS: BP 88/72
[2024-03-15] MEDS ORDERED: Tamsulosin HCl 0.4 MG Cap PO SCH ×2 (09:00→21:00)
[2024-03-15] MEDS ORDERED: Metoprolol Tartrate 25 MG Tab PO SCH (09:00)
[2024-03-15] MEDS ORDERED: CefTRIAXone Sodium 1,000 MG in NS 100 ML IV SCH (09:00)
[2024-03-15] MEDS ORDERED: NS 250 ML IV SCH (09:35)
--- NOTE | 2024-03-15 09:59 | NUR ---
CALL TO ER. SPOKE WITH DAVID WRIGHT AND RECEIVED HAND-OFF REPORT. INDEPENDENT AT BASELINE, THOUGH USING BSC FOR TOILETING D/T PAIN IN LEFT FOOT. DR. DURAN NOTIFIED BY DAVID WRIGHT AND WILL CONSULT LATER TODAY. PT NPO IN THE MEANTIME IN THE EVENT SURGICAL INTERVENTION IN REQUIRED. NS @ 100mL/hr. ZOSYN DUE AT NOON. A&Ox4. DR. SOMMER AND RESIDENT TO FOLLOW.
--- NOTE | 2024-03-15 12:39 | NUR ---
PT REPORTS HE HAS BEEN VOIDING; CAPACITY PLANNING ENGINEER CONFIRMS. BLADDER SCAN YIELDED 310mL. PER DR LAGUNAS, OK TO DC NPO STATUS SURGICAL INTERVENTION IS NOT INDICATED. CALL TO LISA'S OFFICE TO CANCEL. DIET CHANGED IN ORDERS AND TRAY NOW ORDERED.
--- NOTE | 2024-03-15 12:44 | NUR ---
SPOKE WITH DR GONZALEZ TO CANCEL PROCEDURE TO WHICH HE AGREES.
[2024-03-15 14:49] VITALS: BP 90/70
--- NOTE | 2024-03-15 19:25 | NUR ---
DAY SHIFT SUMMARY: A&Ox4. PLEASANT AND COOPERATIVE WITH MOST CARE. DID ASK THAT K+ INFUSION BE STOPPED D/T BURNING OF VEIN; PROVIDER NOTIFIED AND OK'd. PROCEDURE FOR SUPRAPUBIC CATHETER CANCELED D/T PT VOIDING ON OWN. HOWEVER, DR. LAGUNAS LATER CALLED, CONCERNED BECAUSE HE'S HAD A SUPRAPUBIC PLACED BEFORE AND MAY REQUIRE ANOTHER PLACEMENT. UNFORTUNATELY, PATIENT HAD ALREADY EATEN AND PROCEDURE CANCELED. WILL REASSESS IN THE MORNING. IN THE MEANTIME, ORDERS TO OBTAIN POST-VOID BALDDER SCAN AND NOTIFY PROVIDER IF >300mL D/T MULTIPLE FAILED GILMORE ATTEMPTS LAST NIGHT IN ED. SCATTERED SCABS C/W LIFESTYLE. HAS NOT BEEN UP TODAY AND USING URINAL FOR VOIDING. MEDS WHOLE WITH FLUIDS. TELE SINUS RHYTHM @ 88. BED IN LOWEST POSITION. CALL LIGHT WITHIN REACH. ALL NEEDS MET. REPORT TO ONCOMING RN.
[2024-03-15 19:54] VITALS: BP 117/85
[2024-03-15 20:03] LABS: Source, Urine Clean Catch
[2024-03-15 20:07] LABS: Appearance, Urine Hazy (Clear); Bilirubin, Urine Neg (Neg); Blood, Urine 5+ (Neg); Color, Urine Yellow (P-Yellow); Glucose Qualitative, Urine Neg (Neg); Ketones, Urine Neg (Neg); Leukocyte Esterase, Urine 3+ (Neg); Nitrite, Urine Pos (Neg); Protein, Urine 3+ (Neg); Specific Gravity, Urine 1.015 (1.003-1.022); Urobilinogen, Urine NORM (Normal)
[2024-03-15 20:14] LABS: Bacteria Many /hpf; Squamous Epithelial Cells Rare /hpf (Few); White Blood Cells, Urine 50-100 /hpf (0-5)
[2024-03-15] MEDS ORDERED: Ciprofloxacin 500 MG Tab PO SCH (21:00)
--- NOTE | 2024-03-15 21:37 | NUR ---
PT BLADDER SCANNED POST VOID OF 200 ML OUT AND 600 ML RETAINING. HOSPITALIST NOTIFIED AND ORDERS GIVEN TO HAVE PT ATTEMPT TO VOID AND IF THEY ARE UNABLE TO, ATTEMPT TO PLACE COUDE INDWELLING CATHETER. IF PLACEMENT IS UNSUCESSFUL CALL DR GONZALEZ FOR PLACEMENT OF SUPRAPUBIC CATHETER, WHICH HAS ALREADY BEEN CONSULTED ON.
[2024-03-16 04:35] VITALS: BP 100/71
[2024-03-16 05:18] LABS: BASOPHILS ABSOLUTE AUTO 0.05 K/mm3 (0.00-0.23); BASOPHILS PERCENT AUTO 0 % (0-2); EOSINOPHILS ABSOLUTE AUTO 0.03 K/mm3 (0.00-0.68); EOSINOPHILS PERCENT AUTO 0 % (0-6); Hematocrit 30.8 % (37.0-53.0); Hemoglobin 10.6 g/dL (13.5-17.5); IMMATURE GRAN ABSOLUTE AUTO 0.17 K/mm3 (0.00-0.10); IMMATURE GRAN PERCENT AUTO 1 % (0-1); LYMPHOCYTES ABSOLUTE AUTO 0.68 K/mm3 (0.84-5.20); LYMPHOCYTES PERCENT AUTO 5 % (21-46); MONOCYTES ABSOLUTE AUTO 0.61 K/mm3 (0.16-1.47); MONOCYTES PERCENT AUTO 4 % (4-13); Mean Corpuscular HGB 31.9 pg (26.0-34.0); Mean Corpuscular HGB Conc 34.4 g/dL (31.5-36.5); Mean Corpuscular Volume 93 fL (80-100); Mean Platelet Volume 10.9 fL (9.1-12.4); NEUTROPHILS ABSOLUTE AUTO 12.91 K/mm3 (1.96-9.15); NEUTROPHILS PERCENT AUTO 89 % (41-73); Platelet Count 170 K/mm3 (150-400); RDW Coefficient Variation 14.7 % (11.7-14.2); RDW Standard Deviation 50.3 fL (35.1-46.3); Red Blood Cell Count 3.32 M/mm3 (4.30-5.90); White Blood Cell Count 14.45 K/mm3 (4.00-11.30)
--- NOTE | 2024-03-16 05:20 | NUR ---
SHIFT SUMMARY NOC PT A/O X 4. PLEASANT AND COOPERATIVE WITH CARE, BUT WITHDRAWN. PT HAD TEMP 100.3F AND GIVEN TYLENOL WHICH BROUGHT IT TO 98.4F. PT VOIDED 200 ML AT BEGINNING OF SHIFT, BUT POST VOID SHOWED 600ML. HOSPITALIST NOTIFIED AND ORDERS GIVEN TO ALLOW PT TIME TO TRY TO VOID ON OWN, BUT IF POST VOID KEEPS INCREASING TO ATTEMPT TO PLACE A GILMORE IN PT UNTIL A SUPRAPUPIC CATHETER CAN BE PUT IN BY DR GONZALEZ. PT HAS VOIDED X 3 AND EACH SUBSEQUENT POST VOID HAS BEEN BELOW 400 ML. GILMORE ORDER IS IN PLACE IN CASE IT IS NEEDED. PT ON TELE SINUS RHYTHM IN 60'S. ON 2L/NC SPO2 >92%. PT CURRENTLY RESTING WITH BED IN LOWEST POSITION, AND CALL LIGHT WITHIN REACH.
[2024-03-16 06:14] LABS: Bun/Creatinine Ratio 30.4 (12.0-20.0); Calcium, Blood 8.2 mg/dL (8.5-10.1); Creatinine, Blood 1.02 mg/dL (0.60-1.20); Potassium, Blood 3.4 mmol/L (3.5-5.5)
[2024-03-16 07:49] VITALS: BP 108/76
[2024-03-16] MEDS ORDERED: Potassium Chloride 20 MEQ TabCR PO ONE (09:00)
[2024-03-16] MEDS ORDERED: Potassium Chloride 10 Meq Tablet SA PO ONE (11:20)
[2024-03-16 15:04] VITALS: BP 88/63
[2024-03-16 15:05] VITALS: BP 101/75
--- NOTE | 2024-03-16 17:54 | NUR ---
NO ACUTE CHANGES. PT HAS BEEN URINATING, PLAN FOR SUPRAPUBIC GILMORE PLACEMENT TOMORROW. DR. LAGUNAS CONSULTED WITH DR. GONZALEZ. FACE SHEET FAXED OVER TO ASSIST WITH SCHEDULING. PT IS ALERT AND ORIENTED X4, INDEPENDENT AND ABLE TO MAKE NEEDS KNONW.
[2024-03-16 19:49] VITALS: BP 129/88
[2024-03-16] MEDS ORDERED: HYDROcodone 5-APAP 325 TAB PO PRN (23:35)
[2024-03-17 04:41] VITALS: BP 101/67
[2024-03-17 05:02] LABS: BASOPHILS ABSOLUTE AUTO 0.02 K/mm3 (0.00-0.23); BASOPHILS PERCENT AUTO 0 % (0-2); EOSINOPHILS ABSOLUTE AUTO 0.11 K/mm3 (0.00-0.68); EOSINOPHILS PERCENT AUTO 1 % (0-6); Hematocrit 30.9 % (37.0-53.0); Hemoglobin 10.5 g/dL (13.5-17.5); IMMATURE GRAN ABSOLUTE AUTO 0.15 K/mm3 (0.00-0.10); IMMATURE GRAN PERCENT AUTO 2 % (0-1); LYMPHOCYTES ABSOLUTE AUTO 1.04 K/mm3 (0.84-5.20); LYMPHOCYTES PERCENT AUTO 10 % (21-46); MONOCYTES ABSOLUTE AUTO 0.44 K/mm3 (0.16-1.47); MONOCYTES PERCENT AUTO 4 % (4-13); Mean Corpuscular Volume 94 fL (80-100); NEUTROPHILS ABSOLUTE AUTO 8.38 K/mm3 (1.96-9.15); NEUTROPHILS PERCENT AUTO 83 % (41-73); Platelet Count 209 K/mm3 (150-400); RDW Coefficient Variation 14.8 % (11.7-14.2); RDW Standard Deviation 51.4 fL (35.1-46.3); Red Blood Cell Count 3.28 M/mm3 (4.30-5.90); White Blood Cell Count 10.14 K/mm3 (4.00-11.30)
[2024-03-17 05:49] LABS: Bun/Creatinine Ratio 37.6 (12.0-20.0); Calcium, Blood 8.3 mg/dL (8.5-10.1); Creatinine, Blood 0.98 mg/dL (0.60-1.20); Potassium, Blood 3.6 mmol/L (3.5-5.5)
--- NOTE | 2024-03-17 06:37 | NUR ---
SHIFT SUMMARY PT A&Ox4 AND COOPERATIVE OF CARE. PT C/O ABD PAIN AND MEDICATED PER EMAR. PT USING URINAL INDPENDENTLY AND ABLE TO VOID T/O NIGHT. ORAL ABX GIVEN PER EMAR. PT NPO AT MIDNIGHT EXCEPT FOR MORNING MED WITH SMALL SIP OF WATER. NO EVENTS ON TELE. VSS. BED IN LOWEST POSITION AND CALL LIGHT IN REACH.
[2024-03-17 07:40] VITALS: BP 102/73
[2024-03-17] MEDS ORDERED: NS 1,000 ML IV ONE (14:47)
[2024-03-17] MEDS ORDERED: FentaNYL Citrate 50 MCG/ML 2 ML Injection ONE (15:12)
[2024-03-17] MEDS ORDERED: Midazolam HCl 1MG / ML 2ML Vial ONE (15:12)
--- NOTE | 2024-03-17 16:22 | NUR ---
SUMMARY PT IS ALERT AND ORIENTED X4, ABLE TO MAKE NEEDS KNOWN, C/O OF SWELLING AND PAIN IN L KNEE POST ASPIRATION. TREATED PER EMAR, ELEVATED, AND ICED. PT NOT FEELING MUCH RELIEF. NPO FOR PROCEDURE, URINE IS DARK MAROON, PT STATES THIS HAS BEEN HER NORMAL FOR APPROX A WEEK. PROVIDER AWARE. SBA TO BEDSIDE COMMODE. R.A
--- NOTE | 2024-03-17 16:46 | NUR ---
SUMMARY PT PLACED IN CONTACT PRECAUTIONS FOR POSITIVE MRSA URINE. NO ACUTE CHANGES. PT IS ALERT AND ORIENTED, GILMORE DRAINING. URINE IS TEA COLORED
[2024-03-17 17:58] VITALS: BP 134/90
[2024-03-17] MEDS ORDERED: Vancomycin HCL 750 MG in NS 250 ML IV ONE (18:15)
[2024-03-17 19:18] VITALS: BP 118/85
[2024-03-17] MEDS ORDERED: NS 250 ML IV PRN (20:45)
[2024-03-18 03:17] VITALS: BP 119/81
[2024-03-18] MEDS ORDERED: Vancomycin HCL 750 MG in NS 250 ML IV SCH (06:00)
--- NOTE | 2024-03-18 06:50 | NUR ---
SHIFT SUMMARY PT A&OX4 AND PLEASANT. SUPRAPUBIC CATHETER DRAINING PINK TINGED BLOOD. DRESSING C/D/I. PT C/O OF MILD PAIN AT INSERTION SITE AND MEDICTED PER EMAR WITH GOOD EFFECT. PT PROVIDED WITH SNACKS DURING THE NIGHT PER REQUEST. CONTINUING IV ABX. VSS. BED IN LOWEST POSITION AND CALL LIGHT IN REACH.
[2024-03-18 07:38] VITALS: BP 114/78
[2024-03-18] MEDS ORDERED: DAPTOmycin 350 MG in NS 50 ML IV SCH (13:00)
[2024-03-18] MEDS ORDERED: APHEN325 MG PO ×2 (13:46)
[2024-03-18 15:14] VITALS: BP 122/88
--- NOTE | 2024-03-18 16:26 | NUR ---
discharge reviewed with pt. iv pulled by everett, new powerglide placed by everett. tele removed. pt verbalized understanding meds and inst. pt wheeled to door at [phone]
== END 2024-03-18 16:26 | disposition home or self-care (01) | DRG 726 ==
LOC: ER 17:33 → MEDS 17:34
PROVIDERS: Internal Medicine; Physician Assistant; ADMIT Internal Medicine
PROC: 0T9B30Z Drainage of Bladder with Drainage Device, Percutaneous Approach (ICD-10-PCS; principal; 2024-03-17)
DX: N40.1 Benign prostatic hyperplasia with lower urinary tract symptoms (principal); I50.22 Chronic systolic (congestive) heart failure; N17.9 Acute kidney failure, unspecified; N39.0 Urinary tract infection, site not specified; I48.91 Unspecified atrial fibrillation; K21.9 Gastro-esophageal reflux disease without esophagitis; F41.9 Anxiety disorder, unspecified; F17.210 Nicotine dependence, cigarettes, uncomplicated; R33.8 Other retention of urine; F43.10 Post-traumatic stress disorder, unspecified; F15.10 Other stimulant abuse, uncomplicated; B95.62 Methicillin resistant Staphylococcus aureus infection as the cause of diseases classified elsewhere; Z88.0 Allergy status to penicillin; Z88.5 Allergy status to narcotic agent; Z88.8 Allergy status to other drugs, medicaments and biological substances; Z79.899 Other long term (current) drug therapy; Z79.01 Long term (current) use of anticoagulants; Z98.890 Other specified postprocedural states
CPT/HCPCS: 36415; 51798; 71046; 76937; 80048; 80053; 81001; 83690; 84484; 85025; 87077; 87086; 87147; 87186; 93005; 93010; 96365; 96367; 96375; 96376; 99152; 99153; 99285-25; A9270; C1751; C1769; G0378; J0696; J0744; J0878; J1170; J2250; J2405; J3010; J3360; J3370; J3480; J7030; J7040; J7050; Q9967

== ENCOUNTER 2024-03-19 04:52 | Day surgery (SDC) | payer MEDICARE, OTHER ==
[~2024-03-19 04:52] MED LIST changes: +APHEN325 MG PO; +TAMS.4ER PO
[2024-03-19] MEDS ORDERED: DAPTOmycin 350 MG in NS 50 ML IV SCH (06:00)
[2024-03-19 14:43] VITALS: BP 117/76
== END 2024-03-19 15:08 | disposition home or self-care (01) ==
LOC: ATC 04:52
DX: N39.0 Urinary tract infection, site not specified (principal); B95.62 Methicillin resistant Staphylococcus aureus infection as the cause of diseases classified elsewhere; K21.9 Gastro-esophageal reflux disease without esophagitis; F43.10 Post-traumatic stress disorder, unspecified; F17.210 Nicotine dependence, cigarettes, uncomplicated; Z88.0 Allergy status to penicillin; Z88.5 Allergy status to narcotic agent; Z88.6 Allergy status to analgesic agent
CPT/HCPCS: 96365; J0878

== ENCOUNTER 2024-03-20 15:03 | Day surgery (SDC) | payer MEDICARE, OTHER ==
[~2024-03-20 15:03] MED LIST changes: +DAPTOmycin 360 MG in NS 50 ML IV SCH
[2024-03-20 15:19] VITALS: BP 113/83
== END 2024-03-20 15:42 | disposition home or self-care (01) ==
LOC: ATC 15:03
DX: N39.0 Urinary tract infection, site not specified (principal); B95.62 Methicillin resistant Staphylococcus aureus infection as the cause of diseases classified elsewhere; F43.10 Post-traumatic stress disorder, unspecified; K21.9 Gastro-esophageal reflux disease without esophagitis; F17.210 Nicotine dependence, cigarettes, uncomplicated; Z79.899 Other long term (current) drug therapy
CPT/HCPCS: 96365; J0878

== ENCOUNTER 2024-03-21 14:02 | Day surgery (SDC) | payer MEDICARE, OTHER ==
[2024-03-21 14:13] VITALS: BP 124/83
== END 2024-03-21 23:57 | disposition home or self-care (01) ==
LOC: ATC 14:02
DX: N39.0 Urinary tract infection, site not specified (principal); B95.62 Methicillin resistant Staphylococcus aureus infection as the cause of diseases classified elsewhere; F17.210 Nicotine dependence, cigarettes, uncomplicated; K21.9 Gastro-esophageal reflux disease without esophagitis; F43.10 Post-traumatic stress disorder, unspecified; Z79.899 Other long term (current) drug therapy; Z88.0 Allergy status to penicillin; Z88.5 Allergy status to narcotic agent; Z88.8 Allergy status to other drugs, medicaments and biological substances
CPT/HCPCS: J0878

== ENCOUNTER 2024-03-22 01:38 | Day surgery (SDC) | payer MEDICARE, OTHER ==
[~2024-03-22 01:38] MED LIST changes: -DAPTOmycin 360 MG in NS 50 ML IV SCH
[2024-03-22] MEDS ORDERED: DAPTOmycin 360 MG in NS 50 ML IV SCH (06:00)
[2024-03-22 14:10] VITALS: BP 118/87
== END 2024-03-22 14:29 | disposition home or self-care (01) ==
LOC: ATC 01:38
DX: N39.0 Urinary tract infection, site not specified (principal); B95.62 Methicillin resistant Staphylococcus aureus infection as the cause of diseases classified elsewhere; F17.210 Nicotine dependence, cigarettes, uncomplicated; Z88.0 Allergy status to penicillin; Z88.5 Allergy status to narcotic agent; Z88.6 Allergy status to analgesic agent
CPT/HCPCS: 96365; J0878

== ENCOUNTER 2024-03-24 02:37 | Day surgery (SDC) | payer MEDICARE, OTHER ==
[2024-03-24] MEDS ORDERED: DAPTOmycin 360 MG in NS 50 ML IV SCH (06:00)
[2024-03-24 14:17] VITALS: BP 122/82
== END 2024-03-24 14:40 | disposition home or self-care (01) ==
LOC: ATC 02:37
DX: N39.0 Urinary tract infection, site not specified (principal); B95.62 Methicillin resistant Staphylococcus aureus infection as the cause of diseases classified elsewhere; K21.9 Gastro-esophageal reflux disease without esophagitis; F17.210 Nicotine dependence, cigarettes, uncomplicated; Z88.0 Allergy status to penicillin; Z88.5 Allergy status to narcotic agent; Z88.6 Allergy status to analgesic agent; Z79.01 Long term (current) use of anticoagulants; Z79.899 Other long term (current) drug therapy
CPT/HCPCS: 96365; J0878

== ENCOUNTER 2024-05-21 14:35 | Observation (INO) | payer MEDICARE, OTHER ==
[~2024-05-21] VITALS: Ht 180.3 cm; Wt 51.0 kg
[2024-05-21] MEDS ORDERED: NS 1,000 ML IV SCH (15:20)
[2024-05-21] MEDS ORDERED: Diltiazem HCl 5 MG / ML 5ML Vial IV ONE (15:20)
[2024-05-21 15:26] LABS: BASOPHILS ABSOLUTE AUTO 0.04 K/mm3 (0.00-0.23); BASOPHILS PERCENT AUTO 0 % (0-2); EOSINOPHILS ABSOLUTE AUTO 0.04 K/mm3 (0.00-0.68); EOSINOPHILS PERCENT AUTO 0 % (0-6); Hematocrit 38.6 % (37.0-53.0); Hemoglobin 12.9 g/dL (13.5-17.5); IMMATURE GRAN ABSOLUTE AUTO 0.16 K/mm3 (0.00-0.10); IMMATURE GRAN PERCENT AUTO 1 % (0-1); LYMPHOCYTES ABSOLUTE AUTO 1.13 K/mm3 (0.84-5.20); LYMPHOCYTES PERCENT AUTO 6 % (21-46); MONOCYTES ABSOLUTE AUTO 0.63 K/mm3 (0.16-1.47); MONOCYTES PERCENT AUTO 3 % (4-13); Mean Corpuscular HGB 30.7 pg (26.0-34.0); Mean Corpuscular HGB Conc 33.4 g/dL (31.5-36.5); Mean Corpuscular Volume 92 fL (80-100); Mean Platelet Volume 10.5 fL (9.1-12.4); NEUTROPHILS ABSOLUTE AUTO 17.67 K/mm3 (1.96-9.15); NEUTROPHILS PERCENT AUTO 90 % (41-73); Platelet Count 326 K/mm3 (150-400); RDW Coefficient Variation 14.4 % (11.7-14.2); White Blood Cell Count 19.67 K/mm3 (4.00-11.30)
[2024-05-21 15:47] LABS: Albumin, Blood 2.3 g/dL (3.4-5.0); Albumin/Globulin Ratio 0.6 (0.8-1.8); Bilirubin, Total 0.4 mg/dL (0.1-1.0); Bun/Creatinine Ratio 41.6 (12.0-20.0); Calcium, Blood 9.1 mg/dL (8.5-10.1); Creatinine, Blood 1.13 mg/dL (0.60-1.20); Globulin, Blood 3.6 g/dL (2.2-4.0); Potassium, Blood 3.8 mmol/L (3.5-5.5); Thyroid Stimulating Hormone 2.2 uIU/mL (0.360-4.800); Total Protein, Blood 5.9 g/dL (6.4-8.2)
[2024-05-21] MEDS ORDERED: Vancomycin HCL 1,000 MG in NS 250 ML IV ONE (16:55)
[2024-05-21] MEDS ORDERED: LevoFLOXacin 750 MG/D5W 150ML 150 ML IV ONE (17:00)
[2024-05-21] MEDS ORDERED: Digoxin 0.25 MG/ML 2ML Amp IV ONE ×2 (17:00→23:00)
[2024-05-21] MEDS ORDERED: Ondansetron HCl 2 MG / ML 2ML Vial IV PRN (17:20)
[2024-05-21] MEDS ORDERED: FLU VACC TS2024-25(6MOS UP)/PF 45 MCG/0.5 ML SYRINGE IM ONE (17:20)
[2024-05-21] MEDS ORDERED: Potassium Chl 20MEQ/Water100ML 100 ML IV SCH (17:20)
[2024-05-21 17:39] LABS: International Normalized Ratio 1.04; Prothrombin Time Results 11.1 Sec (9.7-11.5)
[2024-05-21 17:41] LABS: Source, Urine Straight Cath
[2024-05-21 17:51] LABS: Digoxin (Lanoxin) 0.15 ug/mL (0.80-2.00)
[2024-05-21 17:57] LABS: Appearance, Urine Turbid (Clear); Bilirubin, Urine Neg (Neg); Blood, Urine 4+ (Neg); Glucose Qualitative, Urine Neg (Neg); Ketones, Urine Neg (Neg); Leukocyte Esterase, Urine 3+ (Neg); Nitrite, Urine Neg (Neg); Protein, Urine 3+ (Neg); Urobilinogen, Urine NORM (Normal)
[2024-05-21] MEDS ORDERED: Enoxaparin 40 MG/0.4 ML SYR SC SCH (18:00)
[2024-05-21 18:10] LABS: Color, Urine Pale Yellow (P-Yellow)
[2024-05-21 18:13] LABS: White Blood Cells, Urine 50-100 /hpf (0-5)
[2024-05-21 18:14] LABS: Bacteria Many /hpf; Squamous Epithelial Cells Not Seen /hpf (Few)
[2024-05-21] MEDS ORDERED: Mag Sulfate 1 GM/D5% 100ML 100 ML IV STA (18:33)
[2024-05-21 19:57] VITALS: BP 91/77
[2024-05-21] MEDS ORDERED: NS 250 ML IV PRN (20:05)
--- NOTE | 2024-05-21 21:00 | NUR ---
ARRIVAL TO PCU: PT ARRIVED TO PCU-13 VIA GURNEY AT APPROX 1950. PT ABLE TO STAND & TRANSFER SELF TO BED. ALERT, ORIENTED X4. ABLE TO COMMUNICATE NEEDS W/ STAFF. PT NOTED TO BE COVERED IN URINE & OUTDOOR DEBRIS (LEAVES, DIRT, ETC); FULL BED BATH, GOWN CHANGE, LINEN CHANGE COMPLETED. SUPRAPUBIC CATH SITE TO ABD SLOWLY DRAINING URINE, NO PURULENT DRAINAGE OR ODOR NOTED. SITE CLEANED, PHOTO PLACED IN CHART, AND MALE PUREWICK APPLIED TO DRAIN URINE TO SUCTION. CONDOM CATH ALSO PLACED FOR ADDITIONAL DRAINAGE. ON ARRIVAL, HR NOTED TO BE 120-130'S, AFIB ON TELE. THIS RN NOTIFIED AT 2031 THAT PT CONVERTED TO NSR. SBP 90'S, DENIES CHEST PAIN/PRESSURE. SPO2 >95% ON RA, RESPIRATIONS EVEN & UNLABORED. PT IS A CURRENT DAILY SMOKER, DENIES A NICOTINE PATCH AT THIS TIME. EDUCATED ON FIRE SAFETY/IGNITION RISK; PT DENIES HAVING ANY IGNITION SOURCES PRESENT AT THIS TIME. PT ORIENTED TO ROOM/UNIT/CALL LIGHT. NO OTHER NEEDS AT THIS TIME, RESTING IN BED WATCHING TV. CALL LIGHT IN REACH.
[2024-05-21 23:14] VITALS: BP 94/74
[2024-05-21] MEDS ORDERED: Acetaminophen 325 MG TABLET PO PRN (23:40)
[2024-05-21] MEDS ORDERED: NS 1,000 ML IV ONE (23:55)
[2024-05-22 03:42] VITALS: BP 121/85
[2024-05-22 04:23] LABS: BASOPHILS ABSOLUTE AUTO 0.03 K/mm3 (0.00-0.23); BASOPHILS PERCENT AUTO 0 % (0-2); EOSINOPHILS ABSOLUTE AUTO 0.01 K/mm3 (0.00-0.68); EOSINOPHILS PERCENT AUTO 0 % (0-6); Hemoglobin 12.4 g/dL (13.5-17.5); IMMATURE GRAN ABSOLUTE AUTO 0.09 K/mm3 (0.00-0.10); IMMATURE GRAN PERCENT AUTO 1 % (0-1); LYMPHOCYTES ABSOLUTE AUTO 1.52 K/mm3 (0.84-5.20); LYMPHOCYTES PERCENT AUTO 11 % (21-46); MONOCYTES ABSOLUTE AUTO 0.65 K/mm3 (0.16-1.47); MONOCYTES PERCENT AUTO 5 % (4-13); Mean Corpuscular HGB Conc 34.4 g/dL (31.5-36.5); Mean Corpuscular Volume 90 fL (80-100); NEUTROPHILS ABSOLUTE AUTO 12.16 K/mm3 (1.96-9.15); NEUTROPHILS PERCENT AUTO 84 % (41-73); Platelet Count 268 K/mm3 (150-400); RDW Coefficient Variation 14.5 % (11.7-14.2); RDW Standard Deviation 47.8 fL (35.1-46.3); White Blood Cell Count 14.46 K/mm3 (4.00-11.30)
[2024-05-22 04:46] LABS: Albumin, Blood 2.2 g/dL (3.4-5.0); Albumin/Globulin Ratio 0.7 (0.8-1.8); Bilirubin, Total 0.2 mg/dL (0.1-1.0); Bun/Creatinine Ratio 43.6 (12.0-20.0); Calcium, Blood 8.5 mg/dL (8.5-10.1); Creatinine, Blood 1.01 mg/dL (0.60-1.20); Globulin, Blood 3.2 g/dL (2.2-4.0); Potassium, Blood 3.9 mmol/L (3.5-5.5); Total Protein, Blood 5.4 g/dL (6.4-8.2)
[2024-05-22] MEDS ORDERED: Vancomycin HCL 750 MG in NS 250 ML IV SCH (05:00)
--- NOTE | 2024-05-22 05:24 | NUR ---
END OF SHIFT/UPDATE: PT HAS REMAINED A/OX4 THIS SHIFT, ABLE TO COMMUNICATE NEEDS. HR 60-70'S, SINUS RHYTHM ON TELE. BP STABLE, MAP >65. SPO2 >95% ON ROOM AIR. PT W/ NO URINE OUTPUT SINCE PLACEMENT OF MALE PUREWICK & CONDOM CATH FOLLOWING ARRIVAL TO PCU. BLADDER SCAN COMPLETED THIS AM, >469ML IN BLADDER. ICU/PCU TYPESETTER PERFORATOR OPERATOR'S TO BEDSIDE TO ASSIST W/ ATTEMPTED STRAIGHT CATH. STRAIGHT CATH VIA URETHRA UNSUCCESSFUL. PT REPORTS FEELING LIKE HIS "BLADDER IS FULL" & DESCRIBES INCREASING ABDOMINAL PAIN. MD FALCON NOTIFIED, MD TO BEDSIDE TO ASSESS. W/ VERBAL ORDERS TO PLACE IVF ON STANDBY, ADMINISTER DOSE OF FLOMAX PER EMAR, Q4HR BLADDER SCANS; TO BEGIN TRANSFER PROCESS TO FACILITY W/ UROLOGIST AVAILABLE. PT MADE NPO AT THIS TIME. TYPESETTER PERFORATOR OPERATOR UPDATED, PT REPORTS UNDERSTANDING OF PLAN. NO OTHER NEEDS AT THIS TIME, CALL LIGHT IN REACH.
[2024-05-22] MEDS ORDERED: Pantoprazole Sodium 40 MG Tab PO SCH (06:00)
[2024-05-22] MEDS ORDERED: Tamsulosin HCl 0.4 MG Cap PO ONE (06:00)
[2024-05-22] MEDS ORDERED: FentaNYL Citrate 50 MCG/ML 2 ML Injection IV PRN (06:50)
[2024-05-22 07:19] VITALS: BP 105/83
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
[2024-05-22] MEDS ORDERED: Metoprolol Tartrate 25 MG Tab PO SCH (09:00)
[2024-05-22 09:07] LABS: U Amphetamine Screen DETECTED; U Barbituate Screen Not Detected; U Benzodiazapine Screen Not Detected; U Buprenorphine Screen Not Detected; U Cannabinoids Screen Not Detected; U Cocaine Screen Not Detected; U Methadone Screen Not Detected; U Methamphetamine Screen DETECTED; U Opiates Screen DETECTED; U Oxycodone Screen Not Detected; U Phencyclidine Screen Not Detected
[2024-05-22 09:12] VITALS: BP 105/83
--- NOTE | 2024-05-22 09:24 | NUR ---
POSITIVE BLOOD CX & ACCEPTING FACILITY PT W/ POSITIVE BLOOD CULTURE. MD MAJOR TO BEDSIDE. RESULT REPORTED TO MD MAJOR. PT ON ANTIBIOTICS. REQUESTING RESULTS TO BE PASSED ON TO ACCEPTING FACILITY. PT W/ BED AT [facility]. REPORT CALLED TO ACCEPTING RN.
--- NOTE | 2024-05-22 10:28 | NUR ---
COBRA TRANSFER PT TAKEN BY MARC TO [facility] W/ BELONGINGS @ APPROX 1000.
[2024-05-22] MEDS ORDERED: LevoFLOXacin 750 MG/D5W 150ML 150 ML IV SCH (18:00)
[2024-05-22] MEDS ORDERED: Tamsulosin HCl 0.4 MG Cap PO SCH (21:00)
[2024-05-23] MEDS ORDERED: LevoFLOXacin 750 MG/D5W 150ML 150 ML IV SCH (19:00)
== END 2024-05-22 10:00 | disposition short-term general hospital (02) ==
LOC: ER 14:35 → PCU 14:36
PROVIDERS: Student in an Organized Health Care Education/Training Program; ADMIT Internal Medicine
DX: A41.50 Gram-negative sepsis, unspecified (principal); R65.20 Severe sepsis without septic shock; I48.91 Unspecified atrial fibrillation; F15.10 Other stimulant abuse, uncomplicated; J44.9 Chronic obstructive pulmonary disease, unspecified; N10 Acute pyelonephritis; I11.0 Hypertensive heart disease with heart failure; I50.22 Chronic systolic (congestive) heart failure; F43.10 Post-traumatic stress disorder, unspecified; K21.9 Gastro-esophageal reflux disease without esophagitis; G89.29 Other chronic pain; M25.529 Pain in unspecified elbow; Z79.899 Other long term (current) drug therapy; Z88.0 Allergy status to penicillin; Z88.5 Allergy status to narcotic agent; Z88.8 Allergy status to other drugs, medicaments and biological substances; T83.028A Displacement of other urinary catheter, initial encounter; Y83.8 Other surgical procedures as the cause of abnormal reaction of the patient, or of later complication, without mention of misadventure at the time of the procedure
CPT/HCPCS: 36415; 51701; 71046; 74177; 80053; 80162; 81001; 83605; 83690; 83735; 83880; 84443; 84484; 85025; 85610; 87040; 87077; 87086; 87186; 93005; 93010; 96361; 96365-59; 96366; 96367; 96372; 96375; 96376; 99285-25; A9270; G0378; J1160; J1650; J1956; J3010; J3370; J3475; J3480; J7030; J7050; Q9967

== ENCOUNTER 2024-08-28 08:08 | Emergency (ER) | payer MEDICARE, OTHER ==
[~2024-08-28] VITALS: Ht 177.8 cm; Wt 46.7 kg
[2024-08-28] MEDS ORDERED: DEXTROSE 5% IV ONE (12:25)
[2024-08-28] MEDS ORDERED: CLINDAMYCIN PHOSPHATE IV ONE (12:25)
[2024-08-28 12:28] LABS: BASOPHILS ABSOLUTE AUTO 0.03 K/mm3 (0.00-0.23); BASOPHILS PERCENT AUTO 0 % (0-2); EOSINOPHILS ABSOLUTE AUTO 0.04 K/mm3 (0.00-0.68); EOSINOPHILS PERCENT AUTO 1 % (0-6); Hemoglobin 10.4 g/dL (13.5-17.5); IMMATURE GRAN ABSOLUTE AUTO 0.02 K/mm3 (0.00-0.10); IMMATURE GRAN PERCENT AUTO 0 % (0-1); LYMPHOCYTES ABSOLUTE AUTO 1.28 K/mm3 (0.84-5.20); LYMPHOCYTES PERCENT AUTO 15 % (21-46); MONOCYTES ABSOLUTE AUTO 0.53 K/mm3 (0.16-1.47); MONOCYTES PERCENT AUTO 6 % (4-13); Mean Corpuscular HGB 32.5 pg (26.0-34.0); Mean Corpuscular HGB Conc 34.7 g/dL (31.5-36.5); Mean Corpuscular Volume 94 fL (80-100); Mean Platelet Volume 10.1 fL (9.1-12.4); NEUTROPHILS ABSOLUTE AUTO 6.76 K/mm3 (1.96-9.15); NEUTROPHILS PERCENT AUTO 78 % (41-73); Platelet Count 261 K/mm3 (150-400); RDW Coefficient Variation 14.4 % (11.7-14.2); RDW Standard Deviation 48.8 fL (35.1-46.3); White Blood Cell Count 8.66 K/mm3 (4.00-11.30)
[2024-08-28 12:50] LABS: Albumin, Blood 2.8 g/dL (3.4-5.0); Albumin/Globulin Ratio 0.8 (0.8-1.8); Bilirubin, Total 0.3 mg/dL (0.1-1.0); Bun/Creatinine Ratio 36.6 (12.0-20.0); Calcium, Blood 8.8 mg/dL (8.5-10.1); Creatinine, Blood 1.01 mg/dL (0.60-1.20); Globulin, Blood 3.3 g/dL (2.2-4.0); Potassium, Blood 3.8 mmol/L (3.5-5.5); Total Protein, Blood 6.1 g/dL (6.4-8.2)
[2024-08-28] MEDS ORDERED: CEPH500 PO (14:18)
[2024-08-28] MEDS ORDERED: SULTRIDS PO (14:41)
[2024-08-28] MEDS ORDERED: ACET500 PO (14:41)
[2024-08-28] MEDS ORDERED: DOXY100 PO (14:41)
[2024-08-28 15:03] VITALS: BP 132/90
== END 2024-08-28 15:03 | disposition home or self-care (01) ==
LOC: ER 08:08
PROVIDERS: Physician Assistant
DX: L03.116 Cellulitis of left lower limb (principal); L03.115 Cellulitis of right lower limb; N39.0 Urinary tract infection, site not specified; K21.9 Gastro-esophageal reflux disease without esophagitis; F43.10 Post-traumatic stress disorder, unspecified; I11.0 Hypertensive heart disease with heart failure; I50.9 Heart failure, unspecified; F17.200 Nicotine dependence, unspecified, uncomplicated; Z79.899 Other long term (current) drug therapy; Z88.0 Allergy status to penicillin; Z88.5 Allergy status to narcotic agent; Z88.6 Allergy status to analgesic agent
CPT/HCPCS: 73590; 73630; 80053; 82947; 85025; 85651; 86141; 96365; 99284-25

== ENCOUNTER 2024-08-31 05:59 | Inpatient (IN) | payer MEDICARE, OTHER ==
[~2024-08-31] VITALS: Ht 172.7 cm; Wt 53.5 kg
[~2024-08-31 05:59] MED LIST changes: +ACET500 PO; +DOXY100 PO
[2024-08-31] MEDS ORDERED: Clindamycin 600mg in D5W 50 ML IV ONE (07:00)
[2024-08-31] MEDS ORDERED: NS 1,000 ML IV SCH (07:00)
[2024-08-31 07:10] LABS: BASOPHILS ABSOLUTE AUTO 0.02 K/mm3 (0.00-0.23); BASOPHILS PERCENT AUTO 0 % (0-2); EOSINOPHILS ABSOLUTE AUTO 0.01 K/mm3 (0.00-0.68); EOSINOPHILS PERCENT AUTO 0 % (0-6); Hematocrit 34.4 % (37.0-53.0); IMMATURE GRAN ABSOLUTE AUTO 0.04 K/mm3 (0.00-0.10); IMMATURE GRAN PERCENT AUTO 0 % (0-1); LYMPHOCYTES ABSOLUTE AUTO 1.16 K/mm3 (0.84-5.20); LYMPHOCYTES PERCENT AUTO 12 % (21-46); MONOCYTES ABSOLUTE AUTO 0.38 K/mm3 (0.16-1.47); MONOCYTES PERCENT AUTO 4 % (4-13); Mean Corpuscular HGB 32.2 pg (26.0-34.0); Mean Corpuscular HGB Conc 34.9 g/dL (31.5-36.5); Mean Corpuscular Volume 92 fL (80-100); Mean Platelet Volume 10.3 fL (9.1-12.4); NEUTROPHILS ABSOLUTE AUTO 8.15 K/mm3 (1.96-9.15); NEUTROPHILS PERCENT AUTO 84 % (41-73); Platelet Count 335 K/mm3 (150-400); RDW Coefficient Variation 14.5 % (11.7-14.2); RDW Standard Deviation 48.5 fL (35.1-46.3); Red Blood Cell Count 3.73 M/mm3 (4.30-5.90); White Blood Cell Count 9.76 K/mm3 (4.00-11.30)
[2024-08-31 07:23] LABS: Ethanol (Alcohol), Blood, Med <3 mg/dL
[2024-08-31 07:26] LABS: Alanine Aminotransfer (ALT/SGP 77 U/L (12-78); Albumin, Blood 2.9 g/dL (3.4-5.0); Albumin/Globulin Ratio 0.8 (0.8-1.8); Alk Phos 155 U/L (50-136); Anion Gap 7 mmol/L (3-11); Aspartate Aminotrans (AST/SGOT 87 U/L (12-37); Bilirubin, Total 0.4 mg/dL (0.1-1.0); Blood Urea Nitrogen 44 mg/dL (8-24); Bun/Creatinine Ratio 50.3 (12.0-20.0); CO2, Blood 30 mmol/L (21-32); Chloride, Blood 107 mmol/L (98-108); Creatinine, Blood 0.87 mg/dL (0.60-1.20); Globulin, Blood 3.8 g/dL (2.2-4.0); Glomerular Filtration Rate 95 (60-); Glucose, Blood 44 mg/dL (70-99); Potassium, Blood 4.1 mmol/L (3.5-5.5); Sodium, Blood 140 mmol/L (136-145); Total Protein, Blood 6.7 g/dL (6.4-8.2)
[2024-08-31] MEDS ORDERED: Dextrose 50% 50 ML Vial ONE (07:28)
[2024-08-31] MEDS ORDERED: Dextrose 50% 50 ML Syringe IV ONE (07:30)
[2024-08-31] MEDS ORDERED: Dextrose 50% 50 ML Vial IV STA (10:45)
[2024-08-31] MEDS ORDERED: FLU VACC TS2024-25(6MOS UP)/PF 45 MCG/0.5 ML SYRINGE IM SCH (10:50)
[2024-08-31] MEDS ORDERED: Pantoprazole Sodium 40 MG Tab PO SCH (11:00)
[2024-08-31] MEDS ORDERED: Metoprolol Tartrate 50 MG Tab PO ONE (11:00)
[2024-08-31] MEDS ORDERED: Rivaroxaban 10 MG Tab PO SCH (11:00)
[2024-08-31 11:20] LABS: U Amphetamine Screen DETECTED; U Barbituate Screen Not Detected; U Benzodiazapine Screen Not Detected; U Buprenorphine Screen Not Detected; U Cannabinoids Screen Not Detected; U Cocaine Screen Not Detected; U Methadone Screen Not Detected; U Methamphetamine Screen DETECTED; U Opiates Screen Not Detected; U Oxycodone Screen Not Detected; U Phencyclidine Screen Not Detected
[2024-08-31 12:53] VITALS: BP 94/80
--- NOTE | 2024-08-31 12:59 | NUR ---
PATIENT ARRIVED TO UNIT VIA BED. TRANSFFERED TO OUR BED WITHOUT TROUBLES. PATIENT GIVEN BED BATH AND VITAL SIGNS TAKEN. PATIENT DENIED FEELING CHEST PAIN/PRESSURE OR SHORT OF BREATH.
[2024-08-31] MEDS ORDERED: Dextrose 50% 50 ML Syringe IV STA (15:22)
--- NOTE | 2024-08-31 15:22 | NUR ---
MD CALLED: CALL PLACED TO MD REGARDING PATIENTS CONSISTENT LOW BLOOD SUGAR AFTER EATING SEVERAL THINGS. MD TO PLACE ORDERS, AWAITING THEM NOW.
[2024-08-31] MEDS ORDERED: Dextrose 10% 500 ML IV SCH (15:30)
[2024-08-31 15:51] VITALS: BP 100/87
--- NOTE | 2024-08-31 15:53 | NUR ---
Pt was conversant at time of arrival, 1300 to PCU 12. He was cheerful, conversant, but forgetful of some things. He was alert and able to eat a lunch tray as well as additional sandwich, milk, cheese, ice cream, fruit cup and root beer. Blood sugar at this time was low so call to attending MD and new orders received. The pt in past 15 minutes has become sleepy, twitching, and increasingly confused, biting at his hand and saying he is eating his dinner. Given 1 amp d50 and IV dextrose 10% at this time per orders. Bed alarm is on. Vital signs are stable, sinus tachycardia at 102 bpm.
[2024-08-31] MEDS ORDERED: Clindamycin 600mg in D5W 50 ML IV SCH (16:00)
[2024-08-31 16:01] VITALS: BP 160/137
--- NOTE | 2024-08-31 16:58 | NUR ---
CALL PLACED TO MD: CALL WAS PLACED TO MD REGARDING PATIENTS RECENT BLOOD SUGAR CHECK. DRIP WAS PASUED AND MD NOTIFED ABOUT PATIENT BECOMING MORE LETHARGIC. MD TO COME TO BEDSIDE SHORTLY.
--- NOTE | 2024-08-31 18:17 | NUR ---
SHIFT SUMMARY: ER ADMIT. PATIENT UPON ARRIVAL WAS ALERT AND ORIETNED X4 BUT FORGETS LIMITATIONS. THROUGHOUT SHIFT PATIENT BECAME MORE LETHARGIC AND STARTED HAVING WORD SALAD AND BITING AT HIS HANDS. SATTING >92% ON ROOM AIR. ON TELE SHOWING AFIB WITH RATE IN 100'S. A NEW SUPRABUPIC CATHETER WAS PLACED. PATIENT BLOOD SUGARS WERE LOW UPON ARRIVAL AND WAS GIVEN AN AMPULE PER EMAR THEN STARTED ON A DRIP. BLOOD SUGAR WENT HIGH AND DRIP WAS STOPPED, MD CAME TO BEDSIDE AND STATED TO CONTINUE TO HOLD THE DRIP. PATIENT IS COOPERATIVE BUT IS IRRITATBLE AT TIMES. PATIENT DID NOT HAVE ANY PAIN AND WAS ABLE TO GET REST. WILL CONTINUE TO MONITOR UNTIL SHIFT CHANGE WHEN NIGHT RN WILL ASSUME CARE.
[2024-08-31 19:25] VITALS: BP 94/74
[2024-08-31 21:00] VITALS: BP 106/69
[2024-08-31] MEDS ORDERED: Lactobacil 2-S.Thermo-Bifido 1 1 Cap PO SCH (21:00)
[2024-08-31 21:20] LABS: Magnesium, Blood 1.9 mg/dL (1.6-2.4); Phosphorus, Blood 3.6 mg/dL (2.5-4.9)
[2024-08-31 22:00] VITALS: BP 111/81
[2024-09-01] VITALS (7 sets, daily range): BP systolic 92–1202; BP diastolic 61–88
[2024-09-01 03:53] LABS: BASOPHILS ABSOLUTE AUTO 0.04 K/mm3 (0.00-0.23); BASOPHILS PERCENT AUTO 1 % (0-2); EOSINOPHILS ABSOLUTE AUTO 0.05 K/mm3 (0.00-0.68); EOSINOPHILS PERCENT AUTO 1 % (0-6); Hematocrit 26.3 % (37.0-53.0); Hemoglobin 9.3 g/dL (13.5-17.5); IMMATURE GRAN ABSOLUTE AUTO 0.03 K/mm3 (0.00-0.10); IMMATURE GRAN PERCENT AUTO 0 % (0-1); LYMPHOCYTES ABSOLUTE AUTO 2.24 K/mm3 (0.84-5.20); LYMPHOCYTES PERCENT AUTO 25 % (21-46); MONOCYTES ABSOLUTE AUTO 0.45 K/mm3 (0.16-1.47); MONOCYTES PERCENT AUTO 5 % (4-13); Mean Corpuscular HGB 32.5 pg (26.0-34.0); Mean Corpuscular HGB Conc 35.4 g/dL (31.5-36.5); Mean Corpuscular Volume 92 fL (80-100); Mean Platelet Volume 10.6 fL (9.1-12.4); NEUTROPHILS ABSOLUTE AUTO 6.03 K/mm3 (1.96-9.15); NEUTROPHILS PERCENT AUTO 68 % (41-73); Platelet Count 296 K/mm3 (150-400); RDW Coefficient Variation 14.6 % (11.7-14.2); RDW Standard Deviation 48.3 fL (35.1-46.3); Red Blood Cell Count 2.86 M/mm3 (4.30-5.90); White Blood Cell Count 8.84 K/mm3 (4.00-11.30)
--- NOTE | 2024-09-01 05:17 | NUR ---
SHIFT SUMMARY PATIENT IS ALERT TO SELF AND PLACE INTERMIT, DOES NOT ANSWER ORIENTATION QUESTIONS WHEN PROMPTED. WHEN ASKED QUESTIONS WILL MOAN OUT AND SAY, " I WANT TO SLEEP". PATIENT HOWEVER REQUESTS SNACKS AND WATER WITH NO ISSUES. BED ALARM USED DURING SHIFT AND BED IN LOWEST POSTION FOR SAFETY. PATIENT IS ON ROOM AIR SATTING ABOVE 90% DURING SHIFT. CBG CHECKS NOW Q4 AND STABLE. WOUNDS PRESENT ON LEGS ARE PAINFUL TO PATIENT OFFERED ICE PACK AND HEAT PACK, REPOSTIONED AND BOOSTED PATIENT UP IN BED SEVERAL TIMES DURING SHIFT FOR COMFORT. PATIENT HAS A SUPRAPUBIC CATH WITH GOOD OUTPUT. CALL LIGHT IS IN REACH, BED REMAINS IN LOWEST POSTION. WILL REPORT TO ONCOMING RN.
[2024-09-01 07:07] LABS: Albumin, Blood 2.2 g/dL (3.4-5.0); Albumin/Globulin Ratio 0.8 (0.8-1.8); Bilirubin, Total 0.2 mg/dL (0.1-1.0); Bun/Creatinine Ratio 49.2 (12.0-20.0); Calcium, Blood 8.5 mg/dL (8.5-10.1); Creatinine, Blood 1.18 mg/dL (0.60-1.20); Globulin, Blood 2.8 g/dL (2.2-4.0); Phosphorus, Blood 2.4 mg/dL (2.5-4.9); Potassium, Blood 3.7 mmol/L (3.5-5.5)
--- NOTE | 2024-09-01 08:45 | NUR ---
ASSUMPTION NOTE: THIS RN TO ASSUME CARE OF PATIENT. PATIENT IS ALERT AND ORIENTED X4 AND ABLE TO MAKE NEEDS KNOWN. PATIENT EATING BREAKFAST AND STATED HE GOT LOTS OF REST. DENIED CHEST PAIN/PRESSURE OR FEELING SOB. NO NAUSEA/VOMITTING. PATIENT HAS CALL LIGHT WITHIN REACH AND BED AT THE LOWEST POSITION.
[2024-09-01] MEDS ORDERED: Arginine/Glutamine/Calcium Hmb 1 Packet PO SCH (09:00)
[2024-09-01] MEDS ORDERED: Potassium Phos/Sodium Phos 250 MG PACK PO SCH (09:00)
[2024-09-01] MEDS ORDERED: Enoxaparin 40 MG/0.4 ML SYR SC SCH (09:00)
[2024-09-01] MEDS ORDERED: Gabapentin 300 MG Cap PO ONE (09:55)
--- NOTE | 2024-09-01 10:18 | NUR ---
PATIENT REPORTING 5/10 PAIN IN THE LEFT LEG. MD NOTIFIED HE WAS ROUNDING AND ORDERS WERE PLACED. PATIENT DID NOT WANT THE MEDICATIONS THE DOCTOR ORDERED HE STATED THEY WOULD NOT WORK. PATIENT REFUSED AND AFTER EDUCATION PATIENT BECAME WILLING AND TOOK THE MEDICATION ORDERED PER EMAR.
--- NOTE | 2024-09-01 11:24 | NUR ---
AT BEDSIDE: MD GUARDADO AT BEDSIDE. ASSESSED PATIENT WOUNDS AND STATED PATIENT IS MEDICAL WITH TELE STATUS AND ORDERS WERE PLACED. WOULD LIKE WOUNDS TO BE IRRITAGED PER WOUND ORDER AND MEDIHONEY PLACED OPEN TO AIR. PATIENT REQUESTED TYLENOL FOR LEFT LEG PAIN AND ORDERS PLACED.
[2024-09-01] MEDS ORDERED: Acetaminophen 325 MG TABLET PO PRN (11:25)
--- NOTE | 2024-09-01 16:43 | NUR ---
MD CALLED: CALL PLACED TO MD REGARDING PATIENTS HIGH BLOOD SUGAR, NO NEW ORDERS FOR THAT. THIS RN MENTIONED THE PATIENT ASKED FOR GABAPENTIN IT HELPED WITH HIS PAIN AND MD TO PLACE ORDERS FOR SCHEDULED.
--- NOTE | 2024-09-01 18:09 | NUR ---
SHIFT SUMMARY: PATIENT IS ALERT AND ORIETNED X4 AND COOPERATIVE WITH HIS CARE. IS SATTING >92% ON ROOM AIR. ON TELE SHOWING SINUS WITH RATE IN 80'S. PATIENT BLOOD SUGARS WERE 85 THIS MORNING AND CAME UP TO 203 IN THE AFTERNOON. MD WAS NOTIFIED BUT NO NEW ORDERS PLACED. PATIENT COMPLAINED ABOUT 5/6 PAIN IN THE LEFT ANKLE AND GABAPENTIN AND TYLENOL WAS ORDERED AND STARTED. PATIENT WAS ABLE TO GET SOME REST TODAY. PATIENT IS MEDICAL WITH TELE STATUS. WILL CONTINUE TO MONITOR UNTIL SHIFT CHANGE AND SUPERVISOR COKE HANDLING COMES IN.
--- NOTE | 2024-09-01 20:40 | NUR ---
ASSUMED CARE OF THIS PATIENT AT 1900. BEDSIDE SHIFT REPORT GIVEN BY OFF GOING RN. PATIENT WAS SITTING UP IN BED FINISHING UP EATING HIS DINNER. PATIENT IS NOW SLEEPING IN BED WITH HOB ELAVED, CALL LIGHT IN REACH.
[2024-09-01] MEDS ORDERED: Gabapentin 300 MG Cap PO SCH (21:00)
[2024-09-02 03:24] VITALS: BP 113/76
[2024-09-02 04:25] LABS: BASOPHILS ABSOLUTE AUTO 0.02 K/mm3 (0.00-0.23); BASOPHILS PERCENT AUTO 0 % (0-2); EOSINOPHILS ABSOLUTE AUTO 0.06 K/mm3 (0.00-0.68); EOSINOPHILS PERCENT AUTO 1 % (0-6); Hematocrit 28.6 % (37.0-53.0); Hemoglobin 9.8 g/dL (13.5-17.5); IMMATURE GRAN ABSOLUTE AUTO 0.02 K/mm3 (0.00-0.10); IMMATURE GRAN PERCENT AUTO 0 % (0-1); LYMPHOCYTES ABSOLUTE AUTO 1.62 K/mm3 (0.84-5.20); LYMPHOCYTES PERCENT AUTO 27 % (21-46); MONOCYTES ABSOLUTE AUTO 0.43 K/mm3 (0.16-1.47); MONOCYTES PERCENT AUTO 7 % (4-13); Mean Corpuscular HGB 32.2 pg (26.0-34.0); Mean Corpuscular HGB Conc 34.3 g/dL (31.5-36.5); Mean Corpuscular Volume 94 fL (80-100); Mean Platelet Volume 10.1 fL (9.1-12.4); NEUTROPHILS ABSOLUTE AUTO 3.84 K/mm3 (1.96-9.15); NEUTROPHILS PERCENT AUTO 64 % (41-73); Platelet Count 249 K/mm3 (150-400); RDW Coefficient Variation 14.9 % (11.7-14.2); RDW Standard Deviation 51.2 fL (35.1-46.3); Red Blood Cell Count 3.04 M/mm3 (4.30-5.90); White Blood Cell Count 5.99 K/mm3 (4.00-11.30)
[2024-09-02 04:57] LABS: Albumin, Blood 2.1 g/dL (3.4-5.0); Albumin/Globulin Ratio 0.7 (0.8-1.8); Bilirubin, Total 0.2 mg/dL (0.1-1.0); Bun/Creatinine Ratio 41.3 (12.0-20.0); Calcium, Blood 8.2 mg/dL (8.5-10.1); Creatinine, Blood 1.04 mg/dL (0.60-1.20); Phosphorus, Blood 1.5 mg/dL (2.5-4.9); Potassium, Blood 3.6 mmol/L (3.5-5.5); Total Protein, Blood 5.1 g/dL (6.4-8.2)
--- NOTE | 2024-09-02 05:19 | NUR ---
SHIFT SUMMARY PATIENT IS ALERT AND ORIENTED TO SELF, PLACE, AND TIME, CONFUSED ON SITUATION. AFTER SOME DISCUSTION WITH THIS RN PATIENT SEEMS TO RECALL WHY IS IS IN THE HOSPITAL. PATIENT IS A POOR HISTORIAN BUT THIS RN WAS ABLE TO COMPLETE ADMISSTION HISTORY. PATIENT WAS PROVIDED A BED BATH AND LIEN CHANGED THIS SHIFT. WOUND CARE TO LOWER LEG WOUNDS THAT ARE WEEPING. PATIENT EXPRESSED PAIN IN HIS LEFT ANKLE OF A 5 OUT OF 10, HEAT PACK PLACED ON IT PER PT REQUEST. CATH CARE PROVIDED TO SUPRAPUBIC CATH. PATIENT TRANSFERED FROM BED TO CHAIR WITH THE ASSITANCE OF ONE STAFF MEMBER. PT IS ABLE TO USE CALL LIGHT AND COMMUNICATE NEEDS. BED IN LOWEST POSTION, AND BED ALARM ON FOR SAFETY. CALL LIGHT IN REACH, WILL REPORT TO ONCOMING RN.
[2024-09-02 08:22] VITALS: BP 126/100
[2024-09-02] MEDS ORDERED: Rivaroxaban 10 MG Tab PO SCH (09:00)
--- NOTE | 2024-09-02 09:16 | NUR ---
ASSUMPTION NOTE: PATIENT IS ALERT AND ORIENTED X4 AND ACTIVE IN HIS CARE. IS ABLE TO MAKE NEEDS KNOWN AND SITITNG UP EATING BREAKFAST WHEN ASSESSING. PATIENT STATED HE WAS ABLE TO GET SOME SLEEP LAST NIGHT. TOOK MORNING MEDICATIONS WITH EASE AND PATIENT WAITING FOR THE MD TO ROUND REGARDING THE PLAN. VITAL SIGNS TAKEN AND ASSESSMENT. PATIENT IS STABLE, HAS CALL LIGHT WITHIN REACH AND BED AT THE LOWEST POSITION.
[2024-09-02] MEDS ORDERED: POTASSIUM PHOSPHATE DIBASIC IV STA (10:34)
[2024-09-02] MEDS ORDERED: DEXTROSE IV STA (10:34)
[2024-09-02 11:16] VITALS: BP 122/101
[2024-09-02] MEDS ORDERED: Nicotine 21 MG PATCH TOP SCH (11:21)
--- NOTE | 2024-09-02 12:33 | NUR ---
THIS RN SENT PRIMARY RN'S TO LUNCH. DR. GUARDADO ASSESSED BLE WOUNDS AND CHANGED WOUND CARE ORDERS. ORDERS UPDATED. WOUND CARE COMPLETED PER ORDER. SEE NOTES FOR UPDATES.
--- NOTE | 2024-09-02 15:47 | NUR ---
HANDOFF REPORT: THIS RN TO HANDOFF REPORT TO RUPA HERNANDEZ. PATIENT IS ALERT AND ORIETNED X4 AND ABLE TO MAKE NEEDS KNOWN. USES CALL LIGHT APPROPIRATELY. WAS PLESEANT THROUGHOUT SHIFT. WAS SEEN BY ADAPT AND PATIENT FILLED OUT PAPERWORK AND STATED ONCE HE DEPARTS HE WOULD LIKE TO ENROLL INTO THE PROGRAM. PATIENT WORKED WITH PT/OT TODAY AND PHYSICAL THERAPY RECOMMEND SNF PLACEMENT. PATIENT AGREED AND STATED HE WOULD LIKE TO GET HIS LIFE ON TRACK. TOP STITCHER IS WORKING ON THIS.
[2024-09-02 15:49] VITALS: BP 132/85
[2024-09-02] MEDS ORDERED: Lisinopril 5 MG Tab PO SCH (16:00)
[2024-09-02 19:54] VITALS: BP 107/80
[2024-09-02] MEDS ORDERED: Protein Supplement 30 ML UD PO SCH (21:00)
[2024-09-02 23:21] VITALS: BP 106/78
--- NOTE | 2024-09-02 23:35 | NUR ---
NURSE NOTE PATIENT IS A+O X4, ABLE TO MAKE CONVERSATION WITH THIS RN. SAT UP AT BEDSIDE CHANGED HIS GOWN AND PULL UP. EXPRESSED THAT HE IS HOPEFUL TO GET INTO A SNF. CATH CARE AND TERRENCE CARE PROVIDED. LIEN CHANGED AND SNACKS PROVIDED. PT NOW SITTING UP IN BED WATCHING TV, IV ABX INFUSING. CALL LIGHT IN REACH.
--- NOTE | 2024-09-03 02:00 | NUR ---
NURSE NOTE/ SHIFT SUMMARY PATIENT IS A+O X4, REPOSTIONS SELF IN BED, ABLE TO MAKE NEEDS KNOWN. PATIENT IS PLEASANT WITH THIS RN AND EXPRESSED HE FEELS MUCH BETTER TODAY THEN THE DAY PRIOR. DENIES PAIN OF ANY KIND. IV ABX INFUSED. OCTREOTIDE DRIP CONTINUES PER EMAR. NO ROOM AIR SATURING AT 98% AND ABOVE. PATIENT HAS BEEN RESTING COMFORTABLY. CALL LIGHT IN REACH.
--- NOTE | 2024-09-03 02:11 | NUR ---
NURSE NOTE/ SHIFT SUMMARY PATIENT IS ALERT AND ORIENTATED X4 THIS SHIFT. USING CALL LIGHT AND MAKING NEEDS KNOW. REPOSTIONING SELF IN BED. HAS REQUESTED SNACKS THROUGHOUT SHIFT. IV ABX INFUSED. PATIENT DENIES PAIN IN LOWER EXTERMITIES. ABD DRESSING REMAIN IN PLACE ON WOUNDS. VSS. SR ON TELE. RA BREATHING EVEN AND UNLABORED. CALL LIGHT IN REACH, BED IN LOWEST POSTION.
[2024-09-03 04:21] VITALS: BP 95/75
--- NOTE | 2024-09-03 04:50 | NUR ---
THIS RN ASSUMED PRIMARY CARE OF PATIENT FROM PRECEPTEE DAVID JACOBSON AT 0315. VSS. SEE PREVIOUS NOTES FROM KAVON RN. NO CHANGES SINCE SHIFT SUMMARY NOTE. NEURO INTACT. PT CALLING APPROPRIATELY. REPOSITIONING SELF IN BED INDEPENDENTLY. VSS. BED IN LOWEST POSITION AND CALL LIGHT WITHIN REACH. THIS RN WILL REPORT TO ONCOMING DAYSHIFT RN.
[2024-09-03 05:09] LABS: BASOPHILS ABSOLUTE AUTO 0.02 K/mm3 (0.00-0.23); BASOPHILS PERCENT AUTO 0 % (0-2); EOSINOPHILS ABSOLUTE AUTO 0.08 K/mm3 (0.00-0.68); EOSINOPHILS PERCENT AUTO 1 % (0-6); Hematocrit 29.3 % (37.0-53.0); Hemoglobin 9.9 g/dL (13.5-17.5); IMMATURE GRAN ABSOLUTE AUTO 0.04 K/mm3 (0.00-0.10); IMMATURE GRAN PERCENT AUTO 1 % (0-1); LYMPHOCYTES ABSOLUTE AUTO 1.28 K/mm3 (0.84-5.20); LYMPHOCYTES PERCENT AUTO 23 % (21-46); MONOCYTES ABSOLUTE AUTO 0.32 K/mm3 (0.16-1.47); MONOCYTES PERCENT AUTO 6 % (4-13); Mean Corpuscular HGB Conc 33.8 g/dL (31.5-36.5); Mean Corpuscular Volume 95 fL (80-100); Mean Platelet Volume 10.3 fL (9.1-12.4); NEUTROPHILS ABSOLUTE AUTO 3.88 K/mm3 (1.96-9.15); NEUTROPHILS PERCENT AUTO 69 % (41-73); Platelet Count 238 K/mm3 (150-400); RDW Coefficient Variation 14.8 % (11.7-14.2); RDW Standard Deviation 50.4 fL (35.1-46.3); Red Blood Cell Count 3.09 M/mm3 (4.30-5.90); White Blood Cell Count 5.62 K/mm3 (4.00-11.30)
[2024-09-03 05:44] LABS: Albumin/Globulin Ratio 0.7 (0.8-1.8); Bilirubin, Total 0.1 mg/dL (0.1-1.0); Calcium, Blood 7.8 mg/dL (8.5-10.1); Creatinine, Blood 0.85 mg/dL (0.60-1.20); Magnesium, Blood 1.6 mg/dL (1.6-2.4); Phosphorus, Blood 1.9 mg/dL (2.5-4.9)
[2024-09-03] MEDS ORDERED: buPROPion HCL 150 MG TAB.SR.12H PO SCH (08:00)
[2024-09-03] MEDS ORDERED: Empagliflozin 10 MG TAB PO SCH (09:00)
[2024-09-03] MEDS ORDERED: Spironolactone 12.5 MG TAB PO SCH (09:00)
[2024-09-03] MEDS ORDERED: Metoprolol Succinate 25 MG TABCR PO SCH (09:00)
[2024-09-03] MEDS ORDERED: Sodium Phosphate 30 MM in Dextrose 5% 500 ML IV STA (10:04)
--- NOTE | 2024-09-03 10:30 | NUR ---
TRANSFER NOTE PATIENT ARRIVED TO ROOM 358 VIA WHEELCHAIR, STAND BY ASSIST. A/OX4, ABLE TO MAKE NEEDS KNOWN. PLEASANT AND COOPERATIVE. IV TO RIGHT FOREARM, IV SODIUM PHOS ADMINISTERED UPON ARRIVAL. WOUND CARE PROVIDED TO LEFT LATERAL ANKLE AND RIGHT CALF WELL LEFT ELBOW. TELEMETRY IN PLACE, PEDRO MAGDALENO. SUPRAPUBIC CATH DRAINING PROPERLY, NO OTHER CONCERNS AT THIS TIME. PATIENT ORIENTED TO NEW ROOM, SKIN ASSESSMENT COMPLETED.
--- NOTE | 2024-09-03 10:35 | NUR ---
TRANSFER: PT TRANSFERRED TO MEDICAL ROOM 358 VIA WHEELCHAIR. REPORT CALLED TO MED RN. ALL BELONGINS WITH PT.
[2024-09-03 10:37] VITALS: BP 112/79
[2024-09-03 15:12] VITALS: BP 118/88
[2024-09-03] MEDS ORDERED: NS 250 ML IV PRN (15:20)
[2024-09-03 17:59] LABS: AMPHETAMINE,URN,QUANT 2765 ng/mL; MDA,URN,QUANT <200 ng/mL; MDEA,URN,QUANT <200 ng/mL; MDMA,URN,QUANT <200 ng/mL; METHAMPHETAMINE,URN,QUANT 8261 ng/mL; PHENTERMINE,URN,QUANT <200 ng/mL
--- NOTE | 2024-09-03 18:01 | NUR ---
SHIFT SUMMARY PATIENT TRANSFERRED TO ROOM 356 THIS MORNING. SODIUM PHOS ADMINISTERED PER OCT. IV ABX ADMINISTERED PER OCT. TELEMETRY IN PLACE, NO EVENTS NOTED. WOUND CARE PROVIDED. NO OTHER CHANGES SINCE TRANSFER NOTE.
[2024-09-03 19:59] VITALS: BP 128/97
[2024-09-03] MEDS ORDERED: Tamsulosin HCl 0.4 MG Cap PO SCH (21:00)
[2024-09-04 04:39] VITALS: BP 119/89
[2024-09-04 05:12] LABS: BASOPHILS ABSOLUTE AUTO 0.03 K/mm3 (0.00-0.23); BASOPHILS PERCENT AUTO 1 % (0-2); EOSINOPHILS ABSOLUTE AUTO 0.09 K/mm3 (0.00-0.68); EOSINOPHILS PERCENT AUTO 2 % (0-6); Hemoglobin 9.4 g/dL (13.5-17.5); IMMATURE GRAN ABSOLUTE AUTO 0.05 K/mm3 (0.00-0.10); IMMATURE GRAN PERCENT AUTO 1 % (0-1); LYMPHOCYTES ABSOLUTE AUTO 1.46 K/mm3 (0.84-5.20); LYMPHOCYTES PERCENT AUTO 24 % (21-46); MONOCYTES PERCENT AUTO 7 % (4-13); Mean Corpuscular HGB 31.8 pg (26.0-34.0); Mean Corpuscular HGB Conc 33.6 g/dL (31.5-36.5); Mean Corpuscular Volume 95 fL (80-100); NEUTROPHILS PERCENT AUTO 67 % (41-73); Platelet Count 218 K/mm3 (150-400); RDW Standard Deviation 51.9 fL (35.1-46.3); Red Blood Cell Count 2.96 M/mm3 (4.30-5.90); White Blood Cell Count 6.13 K/mm3 (4.00-11.30)
--- NOTE | 2024-09-04 05:22 | NUR ---
SHIFT SUMMARY PT ALERT AND ORIENTED TIMES 4.PT WAS RECEPTIVE TO CARE, TOOK HS MEDICATION AND IS APPROPRIATE WITH CALL LIGHT. PT ABLE TO MAKE NEEDS KNOWN. DIETARY ORDER PUT IN KITCHEN HAS NOT BROUGHT CORRECT ORDER THAT PT REQUESTED OFF MENUE. PT ORDERED MEALS FOR THURSDAY. CALL LIGHT WITHIN REACH, RAILS TIMES 2, BED IN LOW POSITION.
[2024-09-04 05:56] LABS: Bun/Creatinine Ratio 37.4 (12.0-20.0); Calcium, Blood 7.9 mg/dL (8.5-10.1); Creatinine, Blood 0.91 mg/dL (0.60-1.20); Potassium, Blood 3.8 mmol/L (3.5-5.5)
[2024-09-04 07:09] VITALS: BP 108/85
[2024-09-04] MEDS ORDERED: Rivaroxaban 10 MG Tab PO SCH (09:00)
[2024-09-04] MEDS ORDERED: Naltrexone HCl 50 MG Tab PO SCH (09:00)
[2024-09-04] MEDS ORDERED: Sodium Phosphate 30 MM in Dextrose 5% 500 ML IV STA (14:12)
[2024-09-04] MEDS ORDERED: Sodium Phosphate 15 MM in Dextrose 5% 500 ML IV STA (14:25)
[2024-09-04] MEDS ORDERED: Ondansetron HCl 2 MG / ML 2ML Vial IV PRN (14:45)
[2024-09-04 15:23] VITALS: BP 117/76
[2024-09-04] MEDS ORDERED: Potassium Phosphate Dibasic 15 MM in Dextrose 5% 250 ML IV SCH (18:30)
[2024-09-04 19:41] VITALS: BP 109/84
--- NOTE | 2024-09-04 19:49 | NUR ---
SHIFT SUMMARY PATIENT A/OX4, ABLE TO MAKE NEEDS KNOWN. PLEASANT AND COOPERATIVE WITH STAFF. PATIETN STARTED ON NALTREXONE THIS MORNING. PATIENT LATER IN THE AFTERNOON WITH MALAISE AND NAUSEA, PRN ZOFRAN ADMINISTERED. DURING THIS TIME PATIENT ALSO AMBULATED TO SHOWER AND WITH INCREASED ACTIVITY. TELEMETRY IN PLACE, NO EVENTS NOTED. WOUND CARE PROVIDED TO BLE. NEW IV PLACED TO LEIGHANN THIS EVENING. IV ABX ADMINISTERED PER OCT. SODIUM PHOS ADMINISTERED PER OCT, ORDER TO START POTASSIUM PHOS AFTER COMPLETION OF SODIUM PHOS. NO OTHER CONCERNS AT THIS TIME. BEDSIDE SHIFT COMPLETED WITH MARKETING UNDERWRITER NURSE.
[2024-09-05 02:32] VITALS: BP 95/68
--- NOTE | 2024-09-05 06:25 | NUR ---
SHIFT SUMMARY PT ALERT AND ORIENTED TIMES 4.PT WAS RECEPTIVE TO CARE, TOOK HS MEDICATION AND IS APPROPRIATE WITH CALL LIGHT. PT ABLE TO MAKE NEEDS KNOWN. PT HAD HEALTHY APPETITE. NO MORE REPORTS OF NAUSEA. PT APPEARED TO SLEEP THROUGH THE NIGHT WITHOUT ISSUE. CALL LIGHT WITHIN REACH, RAILS TIMES 2, BED IN LOW POSITION.
[2024-09-05 07:12] VITALS: BP 106/83
--- NOTE | 2024-09-05 09:00 | NUR ---
Pt laying in bed awake a/ox4, pleasant and cooperative with care, follows commands well, no complaints of pain at this time, lungs are clear dim in bases, resp even and unlabored, no cough noted, hrr, trace edema noted to b/l le, ppp+1, cap refill< 3sec, vs stable, afebrile, piv to larry site is clear and patent, btx4, reports reg bm's, voids via supra pubic cath draining yellow urine with sediment, skin has wounds to b/l le, dressings in place, has mepilex to coccyx, coccyx is just pink, no open area, kacey sagastume, call light in reach.
[2024-09-05] MEDS ORDERED: CeFAZolin Sodium 2,000 MG in NS 100 ML IV SCH (14:00)
[2024-09-05 15:52] VITALS: BP 113/81
--- NOTE | 2024-09-05 18:13 | NUR ---
Pt had dressings changed to legs this am, he has sat up in chair for half the shift. ambulates well to bathroom, just needs his lines managed. no acute chages this shift. call light in reach.
[2024-09-05 19:06] VITALS: BP 123/93
[2024-09-05 21:15] VITALS: BP 114/79
[2024-09-05 22:10] VITALS: BP 99/75
[2024-09-06 02:55] VITALS: BP 100/68
--- NOTE | 2024-09-06 04:58 | NUR ---
SHIFT SUMMARY AT SHIFT CHANGE PT COOPERATIVE WITH CARE, THEN BECAME AGITATED AND ARGUMENTATIVE WITH THIS GEAR SETTER DURING SHIFT ASSESSMENT. PT HARSHY SQUEEZED THIS WRITERS FINGERS DURING THE ASSESSMENT, PT WAS REDIRECTED SUCCESSFULLY. PT CONVINCED ABOUT C/O "LUMPS ON THE RIBS". NONE NOTED WHEN PALPATED GENTLY. PT C/O RIGHT SIDED CHEST PRESSURE, DENIES PAIN. PT REPORTED HAVING TINNITUS. VSS. CHARGE NURSE WAS NOTIFIED. TELE: SR 90'S. PT RESTING T/O THIS SHIFT. SBA WITH FWW TO THE RESTROOM. IV ABX INFUSED ORDERED. SUBRAPUBIC CATH DRAINING YELLOW URINE. DRESSINGS C/D/I ON LE'S. ELEVATED WITH PILLOWS. NO ACUTE EVENTS DURING THIS SHIFT. PT IS ABLE TO MAKE HIS NEEDS KNOWN. APPEARS WITHDRAWN AND SOMEWHAT COOPERATIVE WITH CARE. BED AT THE LOWEST POSITION, CALL LIGHT W/I REACH.
[2024-09-06 07:30] VITALS: BP 111/89
--- NOTE | 2024-09-06 09:00 | NUR ---
pt laying in bed watching the news, a/ox4, pleasant and cooperative with care, follows commands well, denies pain at this time, lungs dim t/o, on r/a resp even and unlabored, no cough noted, hrr, tele in place running sr to st per monitor, see strip, no edea noted, ppp+1, cap refill <3 sec, vs stalbe, afebrile, piv to rw and larry, sites are clear and patent, btx4, abd flat soft nontender, voids via suprapubic cath draining yellow urine with sediment, skin has wounds to b/l le, pix in chart, scrotum is red, has mepilex to coccyx, no wound noted there, for prevention, as pt is very thin, maew, ambulates well with walker, needs lines removed for him, kacey, call light in reach.
[2024-09-06 15:09] VITALS: BP 88/67
--- NOTE | 2024-09-06 15:48 | NUR ---
CALLED DR MAJOR RE LOW BP. PT MINIMALLY SYMPTOMATIC.. FEELS SO EWEAK AND LIGHT HEADEDNESS. STATES HAS FOR COUPLE MONTHS. DR TO MAKE MED ADJUSTMENTS.
--- NOTE | 2024-09-06 19:00 | NUR ---
PT PLEASANT SINCE ACCEPTING CARE AT 1300. LEG WOUNDS CHANGES PERFORMED PER ORDERS. PT SHAN WELL. PT HAD FRIEND COME VISIT AND BRINGING EXTRA CLOTHES. AMBULATING SLOWLY BED TO CHAIR WITH MIN ASST. NO C/O PAIN FOR ME. BED IN LOW POSITION, CALL LITE IN REACH, CALLS APPROP
[2024-09-06 19:42] VITALS: BP 87/66
[2024-09-07 02:12] VITALS: BP 103/78
--- NOTE | 2024-09-07 03:18 | NUR ---
SHIFT SUMMARY PT IS A/O X4, IN GOOD SPIRITS, COOPERATIVE AND SMILING. PT REPORTS HAVING A GOOD VISIT FROM THE REGIONAL SALES ENGINEER DURING DAY SHIFT. PT ASSISTED WITH A SHOWER, REPORTS FEELING GOOD. DRESSING CHANGES COMPLETED ON LE'S BILATERALLY DURING THIS SHIFT. PT DENIES PAIN AND DISCOMFORT. IV ABX INFUSED ORDERED. NO ACUTE DISTRESS/EVENTS DURING THIS SHIFT. BED AT THE LOWEST POSITION, CALL LIGHT W/I REACH. PT IS ABLE TO MAKE HIS NEEDS KNOWN AND IS COOPERATIVE WITH CARE. TELE: @70'S. VSS.
[2024-09-07 06:13] LABS: Magnesium, Blood 2.1 mg/dL (1.6-2.4)
[2024-09-07 06:14] LABS: Bun/Creatinine Ratio 39.6 (12.0-20.0); Calcium, Blood 8.5 mg/dL (8.5-10.1); Creatinine, Blood 0.88 mg/dL (0.60-1.20); Potassium, Blood 4.3 mmol/L (3.5-5.5)
[2024-09-07 08:19] VITALS: BP 97/74
[2024-09-07] MEDS ORDERED: Lisinopril 5 MG Tab PO SCH (09:00)
--- NOTE | 2024-09-07 17:08 | NUR ---
REVIEWED SHIFT ASSESSMENT DOCUMENTED BY VESNA, STUDENT NURSE AND AGREE WITH HER DOCUMENTATION ON THIS PATIENT.
[2024-09-07 17:20] VITALS: BP 99/69
--- NOTE | 2024-09-07 17:58 | NUR ---
PATIENT A/OX4, UP TO CHAIR WITH FWW AND 1PA FOR MEALS THIS SHIFT. TOLERATING REGULAR DIET. DENIES ANY PAIN TODAY. DRESSINGS CHANGED THIS EVENING PER WOUND CARE ORDERS. S/P CATH DRAINING CLEAR YELLOW URINE. SR ON TELE IN THE 'S. [facility] WAS HERE THIS EVENING AND LEFT A CARD TO HAVE PATIENT CALL WHEN READY TO DC TO SET UP OUTPATIENT CARE. NO NEW CONCERNS THIS SHIFT.
[2024-09-07 19:46] VITALS: BP 101/76
--- NOTE | 2024-09-08 03:20 | NUR ---
SHIFT SUMMARY NO ACUTE EVENTS/DISTRESS NOTED/REPORTED DURING THIS SHIFT. TELE: SR @34. SUPRAPUBIC CATHETER DRAINING YELLOW URINE. DINNER INTAKE 100%. PT HAS A GOOD PO FLUID INTAKE. PT IS A/O X4, COOPERATIVE AND PLEASANT WITH STAFF. PT READING BIBLE AND HAD A DISCUSSION WITH THIS BREWERY PUMPER R/T VERSES IN THE BIBLE. PT REMAINS HOPEFUL AND EXCITED ABOUT HIS FUTURE. EMPATHY AND ACTIVE LISTENING USED BY THIS BREWERY PUMPER. PT C/O H/A 01/31, PRN PO TYLENOL EFFECTIVE. IV ABX INFUSED ORDERED. BED AT THE LOWEST POSITION, CALL LIGHT W/I REACH. PT IS ABLE TO MAKE HIS NEEDS KNOWN.
[2024-09-08 04:46] VITALS: BP 95/75
[2024-09-08 07:34] VITALS: BP 103/75
[2024-09-08 16:10] VITALS: BP 110/84
--- NOTE | 2024-09-08 17:50 | NUR ---
PATIENT A/OX4 THIS SHIFT. UP TO RESTROOM AND CHAIR FOR MEALS WITH FWW AND 1PA. DRESSING CHANGED THIS AM. DENIES ANY PAIN OR DISCOMFORT. VSS, ON RA. PLEASANT AND COOPERATIVE WITH CARE. NO NEW CONCERNS THIS SHIFT.
[2024-09-08 20:54] VITALS: BP 87/66
[2024-09-08] MEDS ORDERED: buPROPion HCL 150 MG TAB.SR.12H PO SCH (21:00)
--- NOTE | 2024-09-09 03:24 | NUR ---
SHIFT SUMMARY NO ACUTE EVENTS DURING THIS SHIFT. MEDICATED PER EMAR C/O 6/10 H/A. WOUND CARE COMPLETED ORDERED. TELE; SR @86. PT IS PLEASANT, HOPEFUL ABOUT THE FUTURE PER PT REPORT. PT REPORTS TRYING TO EAT MUCH POSSIBLE TO GAIN WEIGHT. DINNER 100% INTAKE. SNACK PROVIDED @HS. BED AT THE LOWEST POSITION, CALL LIGHT W/I REACH. PT IS A/O X4, ABLE TO MAKE HIS NEEDS KNOWN AND COOPERATIVE WITH CARE. SUBRAPUBIC CATH DRAINING YELLOW COLOR URINE.
[2024-09-09 03:59] VITALS: BP 90/73
[2024-09-09 07:47] VITALS: BP 117/77
[2024-09-09 16:06] VITALS: BP 96/77
--- NOTE | 2024-09-09 17:40 | NUR ---
SHIFT SUMMARY PATIENT ALERT AND INTERACTIVE. ABLE TO MAKE NEEDS KNOWN. PATIENT VERBALIZING FEELING LIKE SOMETHING IS STUCK IN HIS THROAT AT TIMES. STATES HE CAN FEEL SOMETHING MOVING AROUND ON HIS CHEST UNDER HIS SKIN AND THAT IT MOVES UP INTO HIS THROAT MAKING IT HARD TO SWALLOW AT TIMES. UNABLE TO PALPATE ANYTHING. PATIENT STATES THAT IT IS GONE AT THE MOMENT. ATTEMPTING TO EAT HIS MEALS BUT ONLY TAKING BITES. WOUND CARE PROVIDED TO LOWER EXTREMETIES. PATIENT EXCITED ABOUT DISCHARGE PLAN WITH [facility]. CONTINUE IV ANTIBIOTICS AT THIS TIME. YELLOW SLOUGH NOTED IN L LOWER LEG WOUND. DISCUSSED WITH PATIENT ABOUT POSSIBLE FOLLOW UP WITH WOUND CLINIC. PATIENT STATES THAT HE WOULD HAVE TRANSPORTATION TO DO SO.
[2024-09-09 19:23] VITALS: BP 101/70
[2024-09-10] VITALS (7 sets, daily range): BP systolic 73–108; BP diastolic 52–76
--- NOTE | 2024-09-10 04:28 | NUR ---
SHIFT SUMMARY PT ALERT ORIENTED ABLE TO VERBALIZE NEEDS AND CALLS OUT APPROPRIATELY. HE C/O HEADACHE AND MEDICATED WITH TYLENOL WITH GOOD PAIN RELIEF. 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 HE HAS A SUPRAPUBIC CATHETER DRAINING YELLOW URINE. CONTINUES ON ANCEF Q8HR FOR SEPTIC ENCEPHALOPATHY. HIS BP THIS AM WAS LOW AT 86/64. REMAINS ON RA SATTING AT 98-100%. DRESSINGS ARE INTACT TO BILATERAL LEG WOUNDS. THERE WORKING ON A DISCHARGE PLAN WITH [facility]. RESTING IN BED AT THIS TIME
[2024-09-10 05:08] LABS: BASOPHILS ABSOLUTE AUTO 0.04 K/mm3 (0.00-0.23); BASOPHILS PERCENT AUTO 1 % (0-2); EOSINOPHILS PERCENT AUTO 2 % (0-6); Hematocrit 26.4 % (37.0-53.0); Hemoglobin 8.7 g/dL (13.5-17.5); IMMATURE GRAN ABSOLUTE AUTO 0.07 K/mm3 (0.00-0.10); IMMATURE GRAN PERCENT AUTO 1 % (0-1); LYMPHOCYTES ABSOLUTE AUTO 1.38 K/mm3 (0.84-5.20); LYMPHOCYTES PERCENT AUTO 25 % (21-46); MONOCYTES ABSOLUTE AUTO 0.36 K/mm3 (0.16-1.47); MONOCYTES PERCENT AUTO 7 % (4-13); Mean Corpuscular HGB 32.8 pg (26.0-34.0); Mean Corpuscular Volume 100 fL (80-100); Mean Platelet Volume 9.9 fL (9.1-12.4); NEUTROPHILS ABSOLUTE AUTO 3.63 K/mm3 (1.96-9.15); NEUTROPHILS PERCENT AUTO 65 % (41-73); Platelet Count 319 K/mm3 (150-400); RDW Coefficient Variation 16.5 % (11.7-14.2); RDW Standard Deviation 58.9 fL (35.1-46.3); Red Blood Cell Count 2.65 M/mm3 (4.30-5.90); White Blood Cell Count 5.58 K/mm3 (4.00-11.30)
[2024-09-10 05:35] LABS: Albumin, Blood 2.3 g/dL (3.4-5.0); Anion Gap 12 mmol/L (3-11); Blood Urea Nitrogen 36 mg/dL (8-24); Bun/Creatinine Ratio 38.7 (12.0-20.0); CO2, Blood 27 mmol/L (21-32); Calcium, Blood 8.2 mg/dL (8.5-10.1); Chloride, Blood 106 mmol/L (98-108); Creatinine, Blood 0.93 mg/dL (0.60-1.20); Glomerular Filtration Rate 91 (60-); Glucose, Blood 122 mg/dL (70-99); Phosphorus, Blood 3.5 mg/dL (2.5-4.9); Potassium, Blood 4.5 mmol/L (3.5-5.5); Sodium, Blood 140 mmol/L (136-145)
--- NOTE | 2024-09-10 10:54 | NUR ---
RECHECKED BP, LOWER, CALLED DR GUARDADO. GENTLE BOLUS AND MIDODRINE ORDERS
[2024-09-10] MEDS ORDERED: NS 500 ML IV SCH (10:55)
[2024-09-10] MEDS ORDERED: NS 500 ML IV ONE (11:00)
[2024-09-10] MEDS ORDERED: Midodrine 5 MG Tab PO SCH (11:00)
--- NOTE | 2024-09-10 14:40 | NUR ---
BP AFTER BOLUS AND MIDODRINE. 86/[address]
--- NOTE | 2024-09-10 19:25 | NUR ---
PT PLEASANT TODAY, WOUND CHANGE DRESSING DONE THIS AFTERNOON. PT TOOK SHOWER TODAY. LOW BP NOTED THIS AM. DISCUSSION WITH DR PROVIDED BOLUS AND MIDODRINE. PT RESPONDING WELL. NO FURTHER CONCERNS NOTED. BED IN LOW POSITIOIN, CALL LITE IN REACH, CALLS APPROP
[2024-09-11 04:13] VITALS: BP 97/73
--- NOTE | 2024-09-11 05:08 | NUR ---
SHIFT SUMMARY PT ALERT ORIENTED X 4 ABLE TO VERBALIZE NEEDS CALLS APPROPRIATELY. C/O GENERALIZED PAIN MEDICATED WITH TYLENOL WITH GOOD RELIEF. REMAINS ON ANCEF Q8HR FOR CELLULITIS DRESSINGS ARE INTACT TO BILATERAL LEGS BP WAS A LITTLE BETTER AT 101/71 AND 97/73 REMAINS ON MIDODRINE ORDERED SUPRAPUBIC CATHETER INTACT DRAINING YELLOW URINE RESTING IN BED AT THIS TIME WITH CALL LIGHT IN REACH
[2024-09-11 07:43] VITALS: BP 103/72
[2024-09-11 08:48] LABS: BASOPHILS ABSOLUTE AUTO 0.03 K/mm3 (0.00-0.23); BASOPHILS PERCENT AUTO 0 % (0-2); EOSINOPHILS ABSOLUTE AUTO 0.13 K/mm3 (0.00-0.68); EOSINOPHILS PERCENT AUTO 2 % (0-6); Hematocrit 26.3 % (37.0-53.0); Hemoglobin 8.6 g/dL (13.5-17.5); IMMATURE GRAN ABSOLUTE AUTO 0.07 K/mm3 (0.00-0.10); IMMATURE GRAN PERCENT AUTO 1 % (0-1); LYMPHOCYTES ABSOLUTE AUTO 1.77 K/mm3 (0.84-5.20); LYMPHOCYTES PERCENT AUTO 23 % (21-46); MONOCYTES ABSOLUTE AUTO 0.51 K/mm3 (0.16-1.47); MONOCYTES PERCENT AUTO 7 % (4-13); Mean Corpuscular HGB 32.8 pg (26.0-34.0); Mean Corpuscular HGB Conc 32.7 g/dL (31.5-36.5); Mean Corpuscular Volume 100 fL (80-100); Mean Platelet Volume 9.8 fL (9.1-12.4); NEUTROPHILS PERCENT AUTO 67 % (41-73); Platelet Count 339 K/mm3 (150-400); RDW Coefficient Variation 16.7 % (11.7-14.2); RDW Standard Deviation 59.7 fL (35.1-46.3); Red Blood Cell Count 2.62 M/mm3 (4.30-5.90); White Blood Cell Count 7.71 K/mm3 (4.00-11.30)
[2024-09-11 09:12] LABS: Albumin, Blood 2.4 g/dL (3.4-5.0); Albumin/Globulin Ratio 0.8 (0.8-1.8); Bilirubin, Total 0.3 mg/dL (0.1-1.0); Bun/Creatinine Ratio 47.4 (12.0-20.0); Calcium, Blood 8.3 mg/dL (8.5-10.1); Creatinine, Blood 0.72 mg/dL (0.60-1.20); Globulin, Blood 3.1 g/dL (2.2-4.0); Potassium, Blood 4.7 mmol/L (3.5-5.5); Total Protein, Blood 5.5 g/dL (6.4-8.2)
[2024-09-11 11:03] VITALS: BP 89/68
--- NOTE | 2024-09-11 11:08 | NUR ---
REVIEWED BP WITH RENA KIM HOLD BP MEDS.
[2024-09-11 18:11] VITALS: BP 111/78
--- NOTE | 2024-09-11 18:33 | NUR ---
PT PLEASNT TODAY. I DID CHANGE DRESSING TODAY. PT WALKED ABOUT HALLS TODAY WITH FWW. DID WELL. STATES FEELS GOOD IMPROVEMENT. PAIN MANAGED WITH AVAIL MEDS. NO NEW CONCERNS NOTED. BED IN LOW POSITION, CALL LITE IN REACH, CALLS APPORP
[2024-09-11 19:45] VITALS: BP 95/67
[2024-09-12 03:18] VITALS: BP 100/75
--- NOTE | 2024-09-12 05:10 | NUR ---
SHIFT SUMMARY PT ALERT ORIENTED X 4 ABLE TO USE CALL LIGHT AND CALL APPROPRIATELY. C/O GENERALIZED PAIN MEDICATED WITH TYLENOL WITH GOOD RESULTS. DRESSINGS ARE INTACT TO WOUNDS ON BILATERAL LEGS. BP IS STILL RUNNING A LITTLE LOW AT 95/67 AND 100/75. HE HAS A SUPRA PUBIC CATHETER DRAINING YELLOW URINE. REMAINS ON CONTACT ISOLATION FOR MRSA. CONTINUES ON ANCEF Q8HR FOR CELLULITIS TO BLE. HE HAS BEEN AMBULATING IN THE HALLWAY WITH A WALKER DOING WELL. HIS BP MEDS HAVE BEEN BEING HELD DUE TO HIS BP BEING LOW. HE CONTINUES TAKING MIDODRINE. HES RESTING WELL IN BED AT THIS TIME WITH CALL LIGHT IN REACH
[2024-09-12 07:53] VITALS: BP 101/71
[2024-09-12] MEDS ORDERED: NS 1,000 ML IV SCH (09:00)
[2024-09-12 10:22] VITALS: BP 95/69
[2024-09-12 13:58] VITALS: BP 93/61
[2024-09-12 16:37] VITALS: BP 100/77
--- NOTE | 2024-09-12 19:20 | NUR ---
SHIFT SUMMARY BLOOD PRESSURE SOFT DURING SHIFT. DR GUARDADO NOTIFIED AND HE ORDERED FLUIDS LEONIDES, BP AND METOPROLOL MEDS HELD AND MIDODRINE GIVEN. HE IS ALSO MEDICATED PER EMAR FOR PAIN. HE IS UP INDEPENDENT TO BATHROOM AND TO SHOWER. DRESSINGS CHANGED TO BILATE LE AFTER SHOWER. PATIENT ABLE TO MAKE NEEDS KNOWN. CALL LIGHT IN REACH.
[2024-09-12 20:01] VITALS: BP 99/79
[2024-09-13 02:11] VITALS: BP 104/73
--- NOTE | 2024-09-13 06:04 | NUR ---
SHIFT SUMARY PT A&OX4 AND ANSWERS QUESTIONS APPROPRIATELY. PT RLE BANDAGE CHANGED. PT RECEIVED SCHEDULED AND PRN MEDICATIONS. VSS, NO COMPLAINTS OF CP/PRESSURE OR SOB. CONTINUOUS IVF INFUSED MOST OF SHIFT, COMPLETED AROUND 0400 AND SALINE LOCKED. PT SPENT MOST OF SHIFT IN BED RESTING. NO ACUTE EVENTS AT THIS TIME. PT REPOSITIONED INDEPENDENTLY. PT LEFT IN A POSITION OF SAFETY WITH FALL PREACUTIONS IN PLACE AND CALL LIGHT IN REACH.
[2024-09-13 07:34] VITALS: BP 131/76
[2024-09-13 09:00] VITALS: BP 91/67
[2024-09-13] MEDS ORDERED: Midodrine 5 MG Tab PO SCH ×2 (13:00→18:00)
[2024-09-13] MEDS ORDERED: Gabapentin 100 MG Cap PO SCH (14:00)
--- NOTE | 2024-09-13 14:43 | NUR ---
Pt. is awake and welcomes my visit Pt. is pleasant and displays evidence of beingencouraged and motivated from his time in the hospital. Facilitated an updat of the Pts. last week as well as the Pts. plans after discharge. Listen with interest and empath. Considered matters of the Pts. lou and belief. Prayed with the Pt. with great emotion, the Pt. verbalized gratitude for the spiritual care visits.
[2024-09-13 16:30] VITALS: BP 90/65
[2024-09-13 19:34] VITALS: BP 111/78
[2024-09-14] VITALS (7 sets, daily range): BP systolic 89–117; BP diastolic 67–76
--- NOTE | 2024-09-14 03:43 | NUR ---
SHIFT SUMMARY NO ACUTE EVENTS DURING THIS SHIFT. DRESSING CHANGE TO LE'S BILATERALLY COMPLETED. PT IS A/O X4, COOPERATIVE WITH CARE, PLEASANT AND IN GOOD SPIRITS/HOPEFUL ABOUT THE FUTURE. PT IS ABLE TO MAKE HIS NEEDS KNOWN. BED AT THE LOWEST POSITION, CALL LIGHT W/I REACH. SUPRAPUBIC CATHETER DRAINING YELLOW URINE. IV ABX INFUSED ORDERED.PT DENIES PAIN AND DISCOMFORT.
[2024-09-14] MEDS ORDERED: Gabapentin 100 MG Cap PO SCH (14:00)
--- NOTE | 2024-09-14 17:31 | NUR ---
SHIFT SUMMARY PT A/Ox4, PLEASANT AND COOPERATIVE WITH CARE. PT DENIES PAIN T/O SHIFT AND REPORTS FEELING COMFORTABLE. WOUND CARE COMPLETED PER ORDERS. IV DRESSING CHANGE COMPLETED - IV IN RIGHT UPPER ARM CURRENTLY SALINE LOCKED. APPETITE GOOD. PT COMPLETED A WALK AROUND UNIT INDEPENDENTLY WITH FWW AND TOLERATED THE EXERCISE WELL. PT WORKED WITH OT TODAY. [facility] WORKER IN FOR VISIT TO ASSESS NEEDS AND PLAN FOR WHEN PT DISCHARGES. PT CURRENTLY RESTING IN HOSPITAL BED WITH BED IN LOWEST POSITION AND CALL LIGHT WITHIN REACH, PT USES CALL LIGHT APPROPRIATELY.
--- NOTE | 2024-09-15 03:26 | NUR ---
SHIFT SUMMARY NO ACUTE EVENTS DURING THIS SHIFT. SUPRAPUBIC CATHETER DRAINING LIGHT YELLOW URINE, WITH A LEG BAG ATTACHED. PRN TYLENOL ADMINISTERED AT HS FOR C/O GENERALIZED ACHES, LE PAIN, EFFECTIVE. PT IS PLEASANT, A/O X4, ABLE TO MAKE HIS NEEDS KNOWN AND COOPERATIVE WITH CARE. BED AT THE LOWEST POSITION, CALL LIGHT W/I REACH.
[2024-09-15 04:06] VITALS: BP 92/61
[2024-09-15 07:30] VITALS: BP 111/74
[2024-09-15 09:05] LABS: BASOPHILS ABSOLUTE AUTO 0.06 K/mm3 (0.00-0.23); BASOPHILS PERCENT AUTO 1 % (0-2); EOSINOPHILS ABSOLUTE AUTO 0.11 K/mm3 (0.00-0.68); EOSINOPHILS PERCENT AUTO 2 % (0-6); Hemoglobin 10.5 g/dL (13.5-17.5); IMMATURE GRAN ABSOLUTE AUTO 0.04 K/mm3 (0.00-0.10); IMMATURE GRAN PERCENT AUTO 1 % (0-1); LYMPHOCYTES ABSOLUTE AUTO 1.73 K/mm3 (0.84-5.20); LYMPHOCYTES PERCENT AUTO 31 % (21-46); MONOCYTES ABSOLUTE AUTO 0.34 K/mm3 (0.16-1.47); MONOCYTES PERCENT AUTO 6 % (4-13); Mean Corpuscular HGB Conc 32.8 g/dL (31.5-36.5); Mean Corpuscular Volume 101 fL (80-100); Mean Platelet Volume 9.5 fL (9.1-12.4); NEUTROPHILS ABSOLUTE AUTO 3.39 K/mm3 (1.96-9.15); NEUTROPHILS PERCENT AUTO 60 % (41-73); Platelet Count 414 K/mm3 (150-400); RDW Coefficient Variation 16.8 % (11.7-14.2); RDW Standard Deviation 61.7 fL (35.1-46.3); Red Blood Cell Count 3.18 M/mm3 (4.30-5.90); White Blood Cell Count 5.67 K/mm3 (4.00-11.30)
[2024-09-15 09:23] LABS: Bun/Creatinine Ratio 37.2 (12.0-20.0); Calcium, Blood 8.7 mg/dL (8.5-10.1); Creatinine, Blood 0.94 mg/dL (0.60-1.20); Potassium, Blood 4.3 mmol/L (3.5-5.5)
[2024-09-15] MEDS ORDERED: Spironolactone 25 MG Tab PO SCH (09:30)
[2024-09-15] MEDS ORDERED: Spironolactone 12.5 MG TAB PO SCH (09:32)
[2024-09-15] MEDS ORDERED: JUVEN PACKET1 EAC3 PO ×2 (12:37)
[2024-09-15] MEDS ORDERED: Lisinopril2.5 MG PO ×2 (12:37)
[2024-09-15] MEDS ORDERED: JARDIANCE10 MG PO ×2 (12:37)
[2024-09-15] MEDS ORDERED: NICO21TP TOP ×2 (12:38)
[2024-09-15] MEDS ORDERED: MIDO5 PO ×2 (12:38)
[2024-09-15] MEDS ORDERED: Naltrexone HCl50 MG PO ×2 (12:38)
[2024-09-15] MEDS ORDERED: SPIR25 PO ×2 (12:39)
[2024-09-15] MEDS ORDERED: BUPR150ER PO ×2 (12:40)
--- NOTE | 2024-09-15 13:13 | NUR ---
PT DISCHARGED THE PT VERBALIZED UNDERSTANDING OF DC INSTRUCTION AND NEED TO CALL FOR A FOLLOW UP APPOINTMENT WITH HIS PCP. THE PT DECLINED WHEELCHAIR AND AMBULATED OUT STEADY ON HIS FEET ACCOMPANIED BY REPRESENTATIVES FROM [facility]
== END 2024-09-15 13:13 | disposition home or self-care (01) | DRG 871 ==
LOC: ER 05:59 → PCU 06:00 → ER 12:44 → PCU 13:04 → MEDS 09-01 15:03 → PCU 09-01 15:03 → MEDS 09-03 10:26
PROVIDERS: Emergency Medicine; Internal Medicine; ADMIT Family Medicine
DX: A41.9 Sepsis, unspecified organism (principal); E43 Unspecified severe protein-calorie malnutrition; G93.41 Metabolic encephalopathy; M62.82 Rhabdomyolysis; R64 Cachexia; I50.22 Chronic systolic (congestive) heart failure; Z59.00 Homelessness unspecified; L03.116 Cellulitis of left lower limb; L03.115 Cellulitis of right lower limb; R65.20 Severe sepsis without septic shock; K21.9 Gastro-esophageal reflux disease without esophagitis; F43.10 Post-traumatic stress disorder, unspecified; F41.9 Anxiety disorder, unspecified; I48.91 Unspecified atrial fibrillation; I27.20 Pulmonary hypertension, unspecified; I08.1 Rheumatic disorders of both mitral and tricuspid valves; I11.0 Hypertensive heart disease with heart failure; E83.39 Other disorders of phosphorus metabolism; G89.29 Other chronic pain; M25.529 Pain in unspecified elbow; F32.A Depression, unspecified; E16.2 Hypoglycemia, unspecified; F15.10 Other stimulant abuse, uncomplicated; F17.210 Nicotine dependence, cigarettes, uncomplicated; Z98.890 Other specified postprocedural states; Z88.0 Allergy status to penicillin; Z88.5 Allergy status to narcotic agent; Z88.8 Allergy status to other drugs, medicaments and biological substances; Z79.01 Long term (current) use of anticoagulants; Z79.899 Other long term (current) drug therapy
CPT/HCPCS: 36415; 80048; 80053; 80069; 80320; 82550; 82947; 83605; 83735; 84100; 85025; 87040; 93306; 96361; 96365; 96366; 96376; 97110; 97110-CQ; 97112; 97116; 97116-CQ; 97162; 97165; 97530; 97535; 99285-25; A9270; G0378; G0480; J0690; J2405; J7030; J7040; J7050; J7060; J7799

== ENCOUNTER → 2024-10-11 | Outpatient (CLI) | payer MEDICARE, OTHER ==
[~2024-10-11] MED LIST changes: +BUPR150ER PO; +JARDIANCE10 MG PO; +JUVEN PACKET1 EAC3 PO; +Lisinopril2.5 MG PO; +MIDO5 PO; +NICO21TP TOP; +Naltrexone HCl50 MG PO; +SPIR25 PO
== END ==
LOC: LAB 17:17 → LAB SHORT 17:17
DX: N30.01 Acute cystitis with hematuria (principal)
CPT/HCPCS: 87077; 87086; 87186